=== PATIENT | female | born 1930 | race Caucasian/White ===

== ENCOUNTER → 2016-06-02 | Outpatient (CLI) | payer MEDICARE, OTHER ==
[~2016-06-02] MED LIST: ADVA100A INH; ALPR0.25 PO; AMLO2.5T PO; ASPI81TA11 PO; ATEN-102 PO; ATEN25TA PO; BENI5TAB4 PO; FOLI1TAB; FOLI5CAP PO; KCL10C PO; LOTE20TA3 PO; METH2.5 PO; METH2.5T PO; PANT20TA2 PO; PROT40TA PO
[2016-06-02 12:41] LABS: AUTOMATED NEUTROPHIL # 5.3 TH/MM3 (1.8-7.7); BASOPHIL # 0.3 TH/MM3 (0-0.2); BASOPHIL % 3.4 % (0.0-2.0); EOSINOPHIL # 0.3 TH/MM3 (0-0.4); EOSINOPHIL % 3.3 % (0.0-4.0); HEMATOCRIT 42.6 % (35.0-46.0); HEMO FLAGS DIFF FINAL; LYMPH % 13.9 % (9.0-44.0); LYMPHOCYTE # 1.1 TH/MM3 (1.0-4.8); MEAN CELL VOLUME 89.8 FL (80.0-100.0); MEAN CORPUSCULAR HEMOGLOBIN 29.6 PG (27.0-34.0); MONO % 10.9 % (0.0-8.0); NEUT % 68.5 % (16.0-70.0); PLATELET COUNT 321 TH/MM3 (150-450); RED BLOOD COUNT 4.75 MIL/MM3 (4.00-5.30); RED CELL DISTRIBUTION WIDTH 14.4 % (11.6-17.2); WHITE BLOOD COUNT 7.7 TH/MM3 (4.0-11.0)
[2016-06-02 13:15] LABS: ALKALINE PHOSPHATASE 133 U/L (45-117); ALT (GPT) 19 U/L (10-53); ANION GAP 5 MEQ/L (5-15); AST (GOT) 19 U/L (15-37); BLOOD UREA NITROGEN 17 MG/DL (7-18); CHLORIDE 100 MEQ/L (98-107); GLOMERULAR FILTRATION RATE 72 ML/MIN (>89); GLUCOSE,FASTING 97 MG/DL (74-99); HDL CHOLESTEROL 69.3 MG/DL (40.0-60.0); LDL CHOLESTEROL 102 MG/DL (0-99); POTASSIUM 3.8 MEQ/L (3.5-5.1); SODIUM (NA) 141 MEQ/L (136-145); TOTAL BILIRUBIN ADULT 0.5 MG/DL (0.2-1.0)
[2016-06-02 16:36] LABS: HEMOGLOBIN A1a 1.1 %; HEMOGLOBIN A1b 1.8 %
== END ==
LOC: PLAB 10:07
PROVIDERS: ATTEND Family Medicine
DX: E78.5 Hyperlipidemia, unspecified (principal); I10 Essential (primary) hypertension; R73.01 Impaired fasting glucose
CPT/HCPCS: 36415; 80053; 80061; 83036; 84443; 85025

== ENCOUNTER 2016-07-19 15:21 | Emergency (ER) | payer MEDICARE, OTHER ==
[~2016-07-19] VITALS: Ht 149.9 cm; Wt 52.2 kg
[~2016-07-19 15:21] MED LIST changes: -AMLO2.5T PO; -ATEN25TA PO; -BENI5TAB4 PO; -FOLI5CAP PO; -METH2.5T PO; -PANT20TA2 PO
[2016-07-19 15:40] VITALS: BP 149/78; PULSE 72; RESP 16; TEMP 97.6; O2SAT 94
[2016-07-19] MEDS ORDERED: FOLI5CAP PO (15:42)
[2016-07-19] MEDS ORDERED: PANT20TA2 PO (15:42)
[2016-07-19] MEDS ORDERED: METH2.5T PO (15:42)
[2016-07-19] MEDS ORDERED: ATEN25TA PO (15:42)
[2016-07-19] MEDS ORDERED: BENI5TAB4 PO (15:42)
[2016-07-19] MEDS ORDERED: AMLO2.5T PO (15:42)
[2016-07-19 16:00] VITALS: O2SAT 94
[2016-07-19 16:13] LABS: AUTOMATED NEUTROPHIL # 6.3 TH/MM3 (1.8-7.7); BASOPHIL % 0.5 % (0.0-2.0); EOSINOPHIL # 0.3 TH/MM3 (0-0.4); EOSINOPHIL % 3.4 % (0.0-4.0); HEMATOCRIT 41.9 % (35.0-46.0); HEMO FLAGS DIFF FINAL; LYMPH % 20.9 % (9.0-44.0); LYMPHOCYTE # 1.9 TH/MM3 (1.0-4.8); MEAN CELL VOLUME 89.8 FL (80.0-100.0); MEAN CORPUSCULAR HEMOGLOBIN 29.5 PG (27.0-34.0); MEAN CORPUSCULAR HGB CONC 32.9 % (32.0-36.0); NEUT % 66.2 % (16.0-70.0); PLATELET COUNT 310 TH/MM3 (150-450); RED BLOOD COUNT 4.67 MIL/MM3 (4.00-5.30); WHITE BLOOD COUNT 9.3 TH/MM3 (4.0-11.0)
[2016-07-19 16:19] LABS: CHLORIDE 102 MEQ/L (98-107); POTASSIUM 3.7 MEQ/L (3.5-5.1); SODIUM (NA) 141 MEQ/L (136-145)
--- NOTE | 2016-07-19 16:21 | RADHPO ---
EXAM DATE/TIME: 07/19/2016 16:00 [facility] COMPARISON: CHEST SINGLE AP, October 31, 2015, 15:01. INDICATIONS : Chest pain that radiates down left arm and into neck. MEDICAL HISTORY : Chronic obstructive pulmonary disease. SURGICAL HISTORY : None. ENCOUNTER: Initial ACUITY: 1 day PAIN SCORE: 4/10 LOCATION: Left chest FINDINGS: A single view of the chest demonstrates cardiomegaly with moderate right pleural effusion and right b asilar density. Post surgical changes right lung. The cardiomediastinal contours are unremarkable. O sseous structures are intact. CONCLUSION: 1. Moderate right pleural effusion and probable right basilar atelectasis. 2. Cardiomegaly. Tevin Matamoros MD on July 19, 2016 at 16:16 Board Certified Radiologist. This report was verified electronically.
[2016-07-19 16:22] LABS: ANION GAP 8 MEQ/L (5-15); BICARBONATE 31.5 MEQ/L (21.0-32.0); MAGNESIUM 2.2 MG/DL (1.5-2.5)
[2016-07-19 16:23] LABS: BLOOD UREA NITROGEN 22 MG/DL (7-18)
[2016-07-19 16:25] LABS: INTERNATIONAL NORMALIZED RATIO 0.9 RATIO; PROTHROMBIN TIME - PATIENT 10.4 SEC (9.8-11.6)
[2016-07-19 16:26] LABS: GLOMERULAR FILTRATION RATE 83 ML/MIN (>89)
--- NOTE | 2016-07-19 16:29 | PD ---
HPI . Chest pain Chief Complaint: Chest Pain Time Seen by Provider: 16:21 Travel History International Travel<30 days: No Contact w/Intl Traveler<30days: No Traveled to known affect area: No History of Present Illness HPI This is an 85-year-old woman with a history of hypertension presents with intermittent chest pain. This is actually been going on for quite some time. She describes a burning sensation in her chest. The pain has now subsided. It lasted for a couple of hours. She does have occasional left arm pain and anterior neck pain. She has been seen by her scholastic aptitude test grader as an outpatient and had a stress test which was reviewed unchanged from previous. This was done less than a month ago. She has no shortness of breath. She has no nausea. She has no diaphoresis. 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 INFECTION -CHRONIC) Social History Alcohol Use: Yes (2 GLASSES DAILY) Tobacco Use: No (QUIT 30 YRS AGO SMOKED 1 PPD) Substance Use: No Allergies-Medications (Allergen,Severity, Reaction): Coded Allergies: Aspirin (Verified Allergy, Unknown, 10/31/15) Reported Meds & Prescriptions Reported Meds & Active Scripts Active Reported Pantoprazole (Pantoprazole Sodium) 20 Mg Tab 20 Mg PO DAILY Folic Acid 5 Mg Cap 5 Mg PO DIRECTED Methotrexate 2.5 Mg Tab 2.5 Mg PO Q7D Atenolol 25 Mg Tab 12.5 Mg PO DAILY Benicar (Olmesartan) 5 Mg Tab 5 Mg PO DAILY Amlodipine (Amlodipine Besylate) 2.5 Mg Tab 2.5 Mg PO DAILY Review of Systems Except as stated in HPI: all other systems reviewed are Neg General / Constitutional: No: Fever, Chills Cardiovascular: Positive: Chest Pain or Discomfort Respiratory: No: Shortness of Breath Gastrointestinal: No: Nausea Musculoskeletal: Positive: Myalgias (anterior neck and left arm) Physical Exam Narrative GENERAL: This is a healthy-appearing 85-year-old woman in no acute distress. SKIN: Warm and dry. HEAD: Atraumatic. Normocephalic. EYES: Pupils equal and round. ENT: No nasal bleeding or discharge. Mucous membranes pink and moist. NECK: Trachea midline. Neck supple. CARDIOVASCULAR: Regular rate and rhythm. Heart sounds normal. RESPIRATORY: No accessory muscle use. Lungs clear with full air movement throughout. Chest wall nontender. GASTROINTESTINAL: Abdomen soft, non-tender, nondistended. MUSCULOSKELETAL: No obvious deformities. No edema. NEUROLOGICAL: Awake and alert. No obvious cranial nerve deficits. Motor grossly within normal limits. Normal speech. PSYCHIATRIC: Appropriate mood and affect; insight and judgment normal. Data Data Last Documented VS Vital Signs Date Time Temp Pulse Resp B/P Pulse Ox O2 Delivery O2 Flow Rate FiO2 07/19/16 16:00 94 Room Air 07/19/16 15:40 97.6 72 16 149/78 Orders Electrocardiogram (07/19/16 15:54) Basic Metabolic Panel (Bmp) (07/19/16 15:54) Ckmb (Isoenzyme) Profile (07/19/16 15:54) Complete Blood Count With Diff (07/19/16 15:54) Magnesium (Mg) (07/19/16 15:54) Prothrombin Time / Inr (Pt) (07/19/16 15:54) Act Partial Throm Time (Ptt) (07/19/16 15:54) Troponin I (07/19/16 15:54) Chest, Single Ap (07/19/16 15:54) Ecg Monitoring (07/19/16 15:54) Bilateral Bp Monitoring (07/19/16 15:54) Iv Access Insert/Monitor (07/19/16 15:54) Oximetry (07/19/16 15:54) Oxygen Administration (07/19/16 15:54) Aspirin Ec (Ecotrin Ec) (07/19/16 16:45) Labs Laboratory Tests Test 07/19/16 15:30 White Blood Count 9.3 TH/MM3 Red Blood Count 4.67 MIL/MM3 Hemoglobin 13.8 GM/DL Hematocrit 41.9 % Mean Corpuscular Volume 89.8 FL Mean Corpuscular Hemoglobin 29.5 PG Mean Corpuscular Hemoglobin 32.9 % Concent Red Cell Distribution Width 14.0 % Platelet Count 310 TH/MM3 Mean Platelet Volume 8.5 FL Neutrophils (%) (Auto) 66.2 % Lymphocytes (%) (Auto) 20.9 % Monocytes (%) (Auto) 9.0 % Eosinophils (%) (Auto) 3.4 % Basophils (%) (Auto) 0.5 % Neutrophils # (Auto) 6.3 TH/MM3 Lymphocytes # (Auto) 1.9 TH/MM3 Monocytes # (Auto) 0.8 TH/MM3 Eosinophils # (Auto) 0.3 TH/MM3 Basophils # (Auto) 0.0 TH/MM3 CBC Comment DIFF FINAL Differential Comment Prothrombin Time 10.4 SEC Prothromb Time International 0.9 RATIO Ratio Activated Partial 27.0 SEC Thromboplast Time Sodium Level 141 MEQ/L Potassium Level 3.7 MEQ/L Chloride Level 102 MEQ/L Carbon Dioxide Level 31.5 MEQ/L Anion Gap 8 MEQ/L Blood Urea Nitrogen 22 MG/DL Creatinine 0.67 MG/DL Estimat Glomerular Filtration 83 ML/MIN Rate Random Glucose 97 MG/DL Calcium Level 8.9 MG/DL Magnesium Level 2.2 MG/DL Total Creatine Kinase 53 U/L Troponin I LESS THAN 0.02 NG/ML MDM Medical Decision Making Medical Screen Exam Complete: Yes Emergency Medical Condition: Yes Medical Record Reviewed: Yes (patient was seen here in October with very similar complaints. She had a negative workup at that time.) Interpretation(s) EKG shows a sinus rhythm with no ST segment elevation or depression. The EKG is unchanged from previous. She does have Q waves in the inferior leads. Differential Diagnosis Differential diagnosis of chest pain includes but is not limited to musculoskeletal pain, pulmonary embolism, acute coronary syndrome, pneumonia, pleurisy Narrative Course Patient presents for the evaluation of chest pain. Chest pain has resolved. CBC & BMP Diagram 07/19/16 15:30 CK and troponin are negative. Last Impressions Chest X-Ray 07/19/16 3709 Signed Impressions: Service Date/Time: Tuesday, July 19, 2016 16:00 - CONCLUSION: 1. Moderate right pleural effusion and probable right basilar atelectasis. 2. Cardiomegaly. Tevin Matamoros MD Disposition was discussed with the patient. A 23 hour observation was offered. She declines. I think that this is probably reasonable especially since she had a negative nuclear stress test less than a month ago. Diagnosis Primary Impression: Chest pain Qualified Code: R07.9 - Chest pain, unspecified type Patient Instructions: Chest Pain (DC), General Instructions Disposition: 01 DISCHARGE HOME Condition: Stable Carolann Guo MD Jul 19, 2016 16:29
[2016-07-19 16:35] LABS: CREATINE KINASE 53 U/L (26-192)
[2016-07-19] MEDS ORDERED: ASPIRIN EC 81 MG TABEC PO ONE (16:45)
[2016-07-19 17:11] VITALS: BP_SYST 130; BP_SYST 136; BP_DIAS 79; BP_DIAS 82; PULSE 64; RESP 18; O2SAT 97
== END 2016-07-19 17:14 | disposition home or self-care (01) ==
LOC: PHED 15:21
DX: R07.9 Chest pain, unspecified (principal); J44.9 Chronic obstructive pulmonary disease, unspecified; I10 Essential (primary) hypertension
CPT/HCPCS: 71010; 80048; 82550; 83735; 84484; 85025; 85610; 85730

== ENCOUNTER 2017-03-25 09:51 | Emergency (ER) | payer MEDICARE, OTHER ==
[~2017-03-25] VITALS: Ht 149.9 cm; Wt 48.1 kg
[~2017-03-25 09:51] MED LIST changes: -ADVA100A INH; -ALPR0.25 PO; +AMLO2.5T PO; -ASPI81TA11 PO; -ATEN-102 PO; +ATEN25TA PO; +BENI5TAB4 PO; -FOLI1TAB; +FOLI5CAP PO; -KCL10C PO; -LOTE20TA3 PO; -METH2.5 PO; +METH2.5T PO; +PANT20TA2 PO; -PROT40TA PO
[2017-03-25 09:56] VITALS: BP 102/72; PULSE 98; RESP 16; TEMP 97.2; O2SAT 95
[2017-03-25] MEDS ORDERED: ALPR.25 PO (10:12)
--- NOTE | 2017-03-25 10:56 | PD ---
HPI Chief Complaint: Complaint Time Seen by Provider: 10:14 Travel History International Travel<30 days: No Contact w/Intl Traveler<30days: No Traveled to known affect area: No History of Present Illness HPI 86 y/o female presents bleeding and her catheter this morning when she took a shower at 9 AM. She denies any trauma to the area that she knows about. She states she does not think that she pulled on it. She states that it was fine before she went in the shower. She states Dr. mcclendon is her urologist and she saw him last on when they placed the catheter because she was having difficulty urinating. She states she recently had had cystoscopy and Botox she's been having this ongoing issue. She states that she's not having any other complaints this morning other than the bleeding. Quality is bright red. Severity is progressive. 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 INFECTION -CHRONIC) Social History Alcohol Use: Yes (2 GLASSES DAILY) Tobacco Use: No (QUIT 30 YRS AGO SMOKED 1 PPD) Substance Use: No Allergies-Medications (Allergen,Severity, Reaction): Coded Allergies: aspirin (Unverified Adverse Reaction, Unknown, GI UPSET, 03/25/17) pt states does not have a allergy to this medication Reported Meds & Prescriptions Reported Meds & Active Scripts Active Macrobid (Nitrofurantoin Monohydrate Macrocrystals) 100 Mg Capsule 100 Mg PO BID 5 Days Reported Xanax (Alprazolam) 0.25 Mg Tab 0.25 Mg PO Q4H PRN Pantoprazole (Pantoprazole Sodium) 20 Mg Tab 20 Mg PO DAILY Methotrexate 2.5 Mg Tab 2.5 Mg PO Q7D Atenolol 25 Mg Tab 12.5 Mg PO DAILY Benicar (Olmesartan) 5 Mg Tab 5 Mg PO DAILY Amlodipine (Amlodipine Besylate) 2.5 Mg Tab 2.5 Mg PO DAILY Review of Systems Except as stated in HPI: all other systems reviewed are Neg Physical Exam Narrative GENERAL: Well-nourished, well-developed patient. SKIN: Warm and dry. HEAD: Normocephalic and atraumatic. EYES: No injection or drainage. ENT: No nasal drainage noted. NECK: Supple, trachea midline. CARDIOVASCULAR: Regular rate and rhythm RESPIRATORY: No increased effort. No accessory muscle use. GASTROINTESTINAL: Abdomen soft, non-tender, nondistended. BACK: Nontender without obvious deformity. NEUROLOGICAL: Awake and alert. Moves all extremities and sensory grossly within normal limits. Normal speech. Data Data Last Documented VS Vital Signs Date Time Temp Pulse Resp B/P (MAP) Pulse Ox O2 Delivery O2 Flow Rate FiO2 03/25/17 09:56 97.2 98 16 102/72 (82) 95 Orders Orders Complete Blood Count With Diff (03/25/17 10:21) Basic Metabolic Panel (Bmp) (03/25/17 10:21) Urinalysis - C+S If Indicated (03/25/17 10:21) Act Partial Throm Time (Ptt) (03/25/17 10:21) Prothrombin Time / Inr (Pt) (03/25/17 10:21) Iv Access Insert/Monitor (03/25/17 10:21) Urinary Catheter - Remove (03/25/17 10:27) Urinary Catheter Insert/Apply (03/25/17 10:27) Urine Culture (03/25/17 11:02) Ed Discharge Order (03/25/17 11:44) Acetaminophen (Tylenol) (03/25/17 12:00) Labs Laboratory Tests Test 03/25/17 11:02 White Blood Count 9.1 TH/MM3 Red Blood Count 4.54 MIL/MM3 Hemoglobin 13.5 GM/DL Hematocrit 41.0 % Mean Corpuscular Volume 90.4 FL Mean Corpuscular Hemoglobin 29.8 PG Mean Corpuscular Hemoglobin Concent 33.0 % Red Cell Distribution Width 14.4 % Platelet Count 309 TH/MM3 Mean Platelet Volume 8.6 FL Neutrophils (%) (Auto) 77.7 % Lymphocytes (%) (Auto) 9.9 % Monocytes (%) (Auto) 8.6 % Eosinophils (%) (Auto) 1.9 % Basophils (%) (Auto) 1.9 % Neutrophils # (Auto) 7.0 TH/MM3 Lymphocytes # (Auto) 0.9 TH/MM3 Monocytes # (Auto) 0.8 TH/MM3 Eosinophils # (Auto) 0.2 TH/MM3 Basophils # (Auto) 0.2 TH/MM3 CBC Comment DIFF FINAL Differential Comment Prothrombin Time 10.9 SEC Prothromb Time International Ratio 1.0 RATIO Activated Partial Thromboplast Time 26.3 SEC Urine Collection Type CATH Urine Color YELLOW Urine Turbidity CLEAR Urine pH 8.0 Urine Specific [place] 1.003 Urine Protein NEG mg/dL Urine Glucose (UA) NEG mg/dL Urine Ketones NEG mg/dL Urine Occult Blood LARGE Urine Nitrite NEG Urine Bilirubin NEG Urine Leukocyte Esterase MOD Urine RBC 15-19 /hpf Urine WBC 25-49 /hpf Urine WBC Clumps MOD Urine Renal Epithelial Cells 0-5 /hpf Microscopic Urinalysis Comment CATH-CULTURE IND Urine Collection Time 11:02 Blood Urea Nitrogen 12 MG/DL Creatinine 0.62 MG/DL Random Glucose 103 MG/DL Calcium Level 8.5 MG/DL Sodium Level 139 MEQ/L Potassium Level 3.7 MEQ/L Chloride Level 102 MEQ/L Carbon Dioxide Level 31.0 MEQ/L Anion Gap 6 MEQ/L Estimat Glomerular Filtration Rate 91 ML/MIN MDM Medical Decision Making Medical Screen Exam Complete: Yes Emergency Medical Condition: Yes Medical Record Reviewed: Yes (past history confirmed) Interpretation(s) CBC & BMP Diagram 03/25/17 11:02 Calcium Level 8.5 Differential Diagnosis UTI, urethral tear, anemia, cystitis Narrative Course Will check blood work, urinalysis and discuss with her urologist Lab work within normal limits, urinalysis given signs of infection we'll treat, patient likely has urethral Tear as nursing staff states that her Jain catheter was barely in, this was exchanged and now urine is clear. Patient denies any new complaints, all questions answered. Patient knows that follow up is incumbent on them and to return to the emergency room immediately if new or worsening symptoms develop. Patient given strict return precautions, vitals reviewed and are normal, agrees to further workup as an outpatient. Given Tylenol for pain Physician Communication Physician Communication dr enamorado agrees to workup and states to exchange Jain 22 Serbian 3-way and can follow in office on Monday with Dr. mcclendon Diagnosis Primary Impression: Hematuria Qualified Codes: R31.9 - Hematuria, unspecified Patient Instructions: General Instructions Additional Instructions: return as needed, tylenol as needed, follow with dr mcclendon monday Med/Other Pt SpecificInfo: Prescription(s) given Scripts Nitrofurantoin Monohydrate Macrocrystals (Macrobid) 100 Mg Capsule 100 MG PO BID for Infection for 5 Days, #10 CAP 0 Refills Prov: Sol Solis MD 03/25/17 Disposition: 01 DISCHARGE HOME Condition: Stable Sol Solis MD Mar 25, 2017 10:56
[2017-03-25 11:09] LABS: BLOOD, URINE LARGE (NEG); GLUCOSE,URINE NEG (NEG); KETONE, URINE NEG (NEG); NITRITE,URINE NEG (NEG)
[2017-03-25 11:14] LABS: BASOPHIL # 0.2 TH/MM3 (0-0.2); BASOPHIL % 1.9 % (0.0-2.0); EOSINOPHIL # 0.2 TH/MM3 (0-0.4); EOSINOPHIL % 1.9 % (0.0-4.0); LYMPH % 9.9 % (9.0-44.0); LYMPHOCYTE # 0.9 TH/MM3 (1.0-4.8); MEAN CELL VOLUME 90.4 FL (80.0-100.0); MEAN CORPUSCULAR HEMOGLOBIN 29.8 PG (27.0-34.0); MONO % 8.6 % (0.0-8.0); NEUT % 77.7 % (16.0-70.0); PLATELET COUNT 309 TH/MM3 (150-450); RED BLOOD COUNT 4.54 MIL/MM3 (4.00-5.30); RED CELL DISTRIBUTION WIDTH 14.4 % (11.6-17.2); WHITE BLOOD COUNT 9.1 TH/MM3 (4.0-11.0)
[2017-03-25 11:16] LABS: HEMO FLAGS DIFF FINAL
[2017-03-25 11:19] LABS: METHOD OF COLLECTION CATH; URINE COLOR YELLOW (YELLW/STRAW)
[2017-03-25 11:20] LABS: COMMENT (UR) CATH-CULTURE IND; CULTURE IF INDICATED CATH CULTURE IND; RBC, URINE 15-19 /hpf (0-3); RENAL EPITHELIAL CELLS 0-5 /hpf
[2017-03-25 11:21] LABS: POTASSIUM 3.7 MEQ/L (3.5-5.1)
[2017-03-25 11:30] LABS: APTT (PATIENT) 26.3 SEC (24.3-30.1); PROTHROMBIN TIME - PATIENT 10.9 SEC (9.8-11.6)
[2017-03-25] MEDS ORDERED: MACR100C2 PO (11:40)
[2017-03-25] MEDS ORDERED: ACETAMINOPHEN 325 MG TAB PO ONE (12:00)
== END 2017-03-25 13:12 | disposition home or self-care (01) ==
LOC: PHED 09:51
DX: R31.9 Hematuria, unspecified (principal); B96.1 Klebsiella pneumoniae [K. pneumoniae] as the cause of diseases classified elsewhere; I10 Essential (primary) hypertension; Z79.82 Long term (current) use of aspirin; Z86.79 Personal history of other diseases of the circulatory system; Z87.09 Personal history of other diseases of the respiratory system; Z87.448 Personal history of other diseases of urinary system
CPT/HCPCS: 51703; 80048; 81001; 85025; 85610; 85730; 87077; 87086; 87186

== ENCOUNTER 2017-04-04 02:51 | Emergency (ER) | payer MEDICARE, OTHER ==
[~2017-04-04] VITALS: Ht 149.9 cm; Wt 47.6 kg
[~2017-04-04 02:51] MED LIST changes: +ALPR.25 PO; -FOLI5CAP PO; +MACR100C2 PO
[2017-04-04 02:56] VITALS: BP 159/82; PULSE 86; RESP 12; TEMP 98.1; O2SAT 93
[2017-04-04] MEDS ORDERED: PANT40TA3 PO (03:37)
[2017-04-04] MEDS ORDERED: OLME1TAB13 PO (03:37)
[2017-04-04] MEDS ORDERED: AMLO5TAB2 PO (03:37)
[2017-04-04] MEDS ORDERED: FOLI800T PO ×2 (03:37)
[2017-04-04] MEDS ORDERED: METH2.5T PO (03:37)
[2017-04-04] MEDS ORDERED: ALPR.5 PO (03:37)
[2017-04-04] MEDS ORDERED: METO25TA3 PO (03:37)
[2017-04-04] MEDS ORDERED: PHEN0.4T PO (03:39)
[2017-04-04] MEDS ORDERED: RAPA8CAP PO (03:39)
[2017-04-04] MEDS ORDERED: VENTAER INH (03:39)
[2017-04-04 03:45] LABS: AUTOMATED NEUTROPHIL # 10.1 TH/MM3 (1.8-7.7); BASOPHIL # 0.1 TH/MM3 (0-0.2); BASOPHIL % 0.4 % (0.0-2.0); EOSINOPHIL # 0.2 TH/MM3 (0-0.4); EOSINOPHIL % 1.7 % (0.0-4.0); HEMO FLAGS DIFF FINAL; LYMPH % 11.7 % (9.0-44.0); LYMPHOCYTE # 1.5 TH/MM3 (1.0-4.8); MEAN CORPUSCULAR HEMOGLOBIN 29.5 PG (27.0-34.0); MEAN CORPUSCULAR HGB CONC 32.5 % (32.0-36.0); MONO % 9.8 % (0.0-8.0); NEUT % 76.4 % (16.0-70.0); PLATELET COUNT 381 TH/MM3 (150-450); RED BLOOD COUNT 4.51 MIL/MM3 (4.00-5.30); RED CELL DISTRIBUTION WIDTH 14.4 % (11.6-17.2); WHITE BLOOD COUNT 13.2 TH/MM3 (4.0-11.0)
[2017-04-04 04:03] LABS: POTASSIUM 3.3 MEQ/L (3.5-5.1)
[2017-04-04 04:05] LABS: BLOOD, URINE MOD (NEG); GLUCOSE,URINE 100 mg/dL (NEG); KETONE, URINE NEG (NEG); NITRITE,URINE POS (NEG); PH, URINE 6.5 (5.0-8.5)
[2017-04-04 04:06] LABS: BICARBONATE 31.4 MEQ/L (21.0-32.0)
[2017-04-04 04:13] LABS: METHOD OF COLLECTION CATH; URINE COLOR AMBER (YELLW/STRAW)
[2017-04-04 04:14] LABS: SQUAMOUS EPITHELIAL CELL URINE 0-5 /hpf (0-5); WBC, URINE INNUM /hpf (0-5)
[2017-04-04 04:15] LABS: BACTERIA, URINE FEW /hpf
[2017-04-04 04:16] LABS: COMMENT (UR) CATH-CULTURE IND; CULTURE IF INDICATED CATH CULTURE IND
[2017-04-04] MEDS ORDERED: POTASSIUM CHLORIDE 20 MEQ CONTROLLED RELEASE TAB PO ONE (04:30)
[2017-04-04] MEDS ORDERED: CIPROFLOXACIN 500 MG TAB PO ONE (04:30)
[2017-04-04] MEDS ORDERED: CIPR250T52 PO (04:36)
[2017-04-04 04:45] VITALS: BP 163/72; PULSE 78; RESP 14; O2SAT 95
--- NOTE | 2017-04-04 04:52 | PD ---
HPI Chief Complaint: Complaint Time Seen by Provider: 03:03 Travel History International Travel<30 days: No Contact w/Intl Traveler<30days: No Traveled to known affect area: No History of Present Illness HPI 86-year-old female presents to the emergency department for urinary retention and painful bladder spasms. No hematuria. No clots. No injury. No fever chills. Patient has had similar symptoms for the past one month and has been followed closely by her urologist. Patient does not seem to be improving. Patient is requesting opportunity to have a urinary catheter placed for symptom relief. Pain is 8/10 intensity. No fever or chills. No generalized abdominal pain flank pain vomiting or diarrhea. Patient also denies any chest pain or shortness of breath. Patient denies recent fever or chills. PFSH Past Medical History Narrative Medical Anxiety COPD UTI kwadwo's granulomatosis; no tobacco use/nursing notes reviewed Hx Anticoagulant Therapy: Yes (asa 81mg) Anxiety: Yes Cardiovascular Problems: Yes COPD: Yes Diminished Hearing: No Genitourinary: Yes (interstitial cystitis) Hypertension: Yes Respiratory: Yes (kwadwo's granulomatosis 1989' RIGHT LUNG) Tetanus Vaccination: Unknown Influenza Vaccination: Yes Menopausal: Yes : 3 Para: 3 Past Surgical History Section: Yes (3C-SECTIONS) Cholecystectomy: Yes Gynecologic Surgery: Yes Hysterectomy: Yes Thoracic Surgery: Yes (RIGHT LOWER LOBECTOMY R/T ? INFECTION -CHRONIC) Social History Alcohol Use: No Tobacco Use: No (QUIT 1965 SMOKED 1 PPD) Substance Use: No Allergies-Medications (Allergen,Severity, Reaction): Coded Allergies: aspirin (Unverified Adverse Reaction, Unknown, GI UPSET, 04/04/17) pt states does not have a allergy to this medication Reported Meds & Prescriptions Reported Meds & Active Scripts Active Reported Ventolin Hfa 18 GM Inh (Albuterol Sulfate) 90 Mcg/Act Aer 2 Puff INH Q4-6H PRN Pyridium (Phenazopyridine HCl) 100 Mg Tab 100 Mg PO DAILY Rapaflo (Silodosin) 8 Mg Cap 8 Mg PO DAILY Folic Acid 0.8 Mg Tab 1 Mg PO M,T,W,F,SA,BRAGG Pantoprazole (Pantoprazole Sodium) 40 Mg Tab 40 Mg PO DAILY Olmesartan 40 Mg Tab 40 Mg PO DAILY Methotrexate 2.5 Mg Tab 7.5 Mg PO Q7D Metoprolol Tartrate 25 Mg Tab 12.5 Mg PO BID Amlodipine (Amlodipine Besylate) 5 Mg Tab 5 Mg PO DAILY Xanax (Alprazolam) 0.5 Mg Tab 0.5 Mg PO BID PRN Review of Systems Except as stated in HPI: all other systems reviewed are Neg Physical Exam Narrative GENERAL: SKIN: Warm and dry. HEAD: Normocephalic. EYES: No scleral icterus. No injection or drainage. NECK: Supple, trachea midline. No JVD or lymphadenopathy. CARDIOVASCULAR: Regular rate and rhythm without murmurs, gallops, or rubs. RESPIRATORY: Breath sounds equal bilaterally. No accessory muscle use. GASTROINTESTINAL: Abdomen soft, non-tender, nondistended. MUSCULOSKELETAL: No cyanosis, or edema. BACK: Nontender without obvious deformity. No CVA tenderness. Data Data Last Documented VS Vital Signs Date Time Temp Pulse Resp B/P (MAP) Pulse Ox O2 Delivery O2 Flow Rate FiO2 04/04/17 03:00 84 14 04/04/17 02:56 98.1 159/82 (107) 93 Orders Orders Complete Blood Count With Diff (04/04/17 03:04) Basic Metabolic Panel (Bmp) (04/04/17 03:04) Urinalysis - C+S If Indicated (04/04/17 03:04) Urinary Catheter Insert/Apply (04/04/17 03:04) Urine Culture (04/04/17 03:20) Potassium Chloride (Kcl) (04/04/17 04:30) Ciprofloxacin (Cipro) (04/04/17 04:30) Ed Discharge Order (04/04/17 04:33) Bag, Leg 32oz Sterile Large Ea (04/04/17 04:33) Cath, Leg Strap Ea (04/04/17 04:33) Labs Laboratory Tests Test 04/04/17 03:20 White Blood Count 13.2 TH/MM3 Red Blood Count 4.51 MIL/MM3 Hemoglobin 13.3 GM/DL Hematocrit 41.0 % Mean Corpuscular Volume 91.0 FL Mean Corpuscular Hemoglobin 29.5 PG Mean Corpuscular Hemoglobin Concent 32.5 % Red Cell Distribution Width 14.4 % Platelet Count 381 TH/MM3 Mean Platelet Volume 8.0 FL Neutrophils (%) (Auto) 76.4 % Lymphocytes (%) (Auto) 11.7 % Monocytes (%) (Auto) 9.8 % Eosinophils (%) (Auto) 1.7 % Basophils (%) (Auto) 0.4 % Neutrophils # (Auto) 10.1 TH/MM3 Lymphocytes # (Auto) 1.5 TH/MM3 Monocytes # (Auto) 1.3 TH/MM3 Eosinophils # (Auto) 0.2 TH/MM3 Basophils # (Auto) 0.1 TH/MM3 CBC Comment DIFF FINAL Differential Comment Urine Collection Type CATH Urine Color STEPHANIE Urine Turbidity MOD Urine pH 6.5 Urine Specific [place] 1.007 Urine Protein 30 mg/dL Urine Glucose (UA) 100 mg/dL Urine Ketones NEG mg/dL Urine Occult Blood MOD Urine Nitrite POS Urine Bilirubin NEG Urine Leukocyte Esterase LARGE Urine RBC 10-14 /hpf Urine WBC INNUM /hpf Urine WBC Clumps MANY Urine Squamous Epithelial Cells 0-5 /hpf Urine Amorphous Sediment SMALL Urine Bacteria FEW /hpf Microscopic Urinalysis Comment CATH-CULTURE IND Blood Urea Nitrogen 7 MG/DL Creatinine 0.57 MG/DL Random Glucose 101 MG/DL Calcium Level 8.7 MG/DL Sodium Level 137 MEQ/L Potassium Level 3.3 MEQ/L Chloride Level 100 MEQ/L Carbon Dioxide Level 31.4 MEQ/L Anion Gap 6 MEQ/L Estimat Glomerular Filtration Rate 100 ML/MIN [facility] Medical Decision Making Medical Screen Exam Complete: Yes Emergency Medical Condition: Yes Medical Record Reviewed: Yes Interpretation(s) CBC & BMP Diagram 04/04/17 03:20 Calcium Level 8.7 Urinalysis positive leukocyte Estrace positive nitrites positive WBCs positive clumped wbc's, positive RBCs and culture is indicated Differential Diagnosis Urinary retention renal insufficiency UTI Narrative Course urinary catheter was placed with greater than 300 cc of retained urine output: Catheterized urine specimen sent for analysis culture and sensitivity Patient resting comfortably voicing no concerns or complaints Patient identified to have abnormal urinalysis and given first dose of oral antibiotic Cipro 500 mg by mouth and will be given prescription for Cipro 250 mg by mouth twice daily for 5 days as patient has just completed a five-day course of Keflex. Review of medical record indicates that Klebsiella organism is sensitive to Cipro and to Keflex. As patient's symptoms persist on Keflex will change to Cipro Patient is encouraged to follow-up with her primary urologist a call office in a.m. for scheduling follow-up appointment regarding the repeat urinary catheterization insertion. Patient with family at bedside informed of lab results and aware of need for close follow-up with urologist. Diagnosis Primary Impression: Urinary retention Additional Impression: UTI (urinary tract infection) Referrals: Urologist 1 day Although is use your urologist Dr. Pavon or with on-call urologist Dr. Sky Patient Instructions: General Instructions Additional Instructions: Follow-up with your urologist or may follow-up with on-call urologist call office in a.m. to schedule follow-up appointment Complete course of antibiotic as prescribed Take acetaminophen/Tylenol as needed for fever 100.4F or greater or for minor pain Continue chronic medications as chronically prescribed Return to the emergency department for any concerns or change in condition Increase fluid hydration Med/Other Pt SpecificInfo: Prescription(s) given Scripts Ciprofloxacin (Cipro) 250 Mg Tab 250 MG PO BID for Infection for 5 Days, #10 TAB 0 Refills Prov: Yue Michele MD 04/04/17 Disposition: 01 DISCHARGE HOME Condition: Stable Yue Michele MD Apr 04, 2017 04:52
== END 2017-04-04 05:06 | disposition home or self-care (01) ==
LOC: PHED 02:51
DX: N39.0 Urinary tract infection, site not specified (principal); B96.5 Pseudomonas (aeruginosa) (mallei) (pseudomallei) as the cause of diseases classified elsewhere; I10 Essential (primary) hypertension; Z87.891 Personal history of nicotine dependence
CPT/HCPCS: 51702; 80048; 81001; 85025; 87077; 87086; 87186

== ENCOUNTER 2017-04-23 04:28 | Emergency (ER) | payer MEDICARE, OTHER ==
[~2017-04-23] VITALS: Ht 147.3 cm; Wt 50.0 kg
[2017-04-23 04:28] VITALS: BP 152/76; PULSE 75; RESP 18; TEMP 97.8; O2SAT 95
[~2017-04-23 04:28] MED LIST changes: -ALPR.25 PO; +ALPR.5 PO; -AMLO2.5T PO; +AMLO5TAB2 PO; -ATEN25TA PO; -BENI5TAB4 PO; +CIPR250T52 PO; +FOLI800T PO; -MACR100C2 PO; +METO25TA3 PO; +OLME1TAB13 PO; -PANT20TA2 PO; +PANT40TA3 PO; +PHEN0.4T PO; +RAPA8CAP PO; +VENTAER INH
--- NOTE | 2017-04-23 04:47 | PD ---
HPI Chief Complaint: Complaint Time Seen by Provider: 04:37 Travel History International Travel<30 days: No Contact w/Intl Traveler<30days: No Traveled to known affect area: No History of Present Illness HPI The patient is an 86-year-old female that apparently has bladder at knee for several months. She is followed by her urologist, Dr. Pavon, for this. She states she woke up tonight and felt like she could not urinate and her bladder was distended. She does not have any bladder spasms. She denies any dysuria or urgency. She denies any flank pain, fever or chills. She denies any nausea , vomiting or diarrhea. The patient has been in before and a urinary catheter has taken care of the problem. She states her urine was recently checked and found not to be infected. She does have a history of urinary tract infections, specifically cystitis. Her creatinines have been normal in the recent past. She denies any narcotic pain medications. She does take Xanax. Dr. Pavon gives her Pyridium and that is the only medicine he gives her. PFSH Past Medical History Hx Anticoagulant Therapy: Yes (asa 81mg) Anxiety: Yes Cardiovascular Problems: Yes COPD: Yes Diminished Hearing: No Genitourinary: Yes (interstitial cystitis) Hypertension: Yes Respiratory: Yes (kwadwo's granulomatosis RIGHT LUNG) ?: Not Menopausal: Yes : 3 Para: 3 Past Surgical History Section: Yes (3C-SECTIONS) Cholecystectomy: Yes Gynecologic Surgery: Yes Hysterectomy: Yes Thoracic Surgery: Yes (RIGHT LOWER LOBECTOMY R/T ? INFECTION -CHRONIC) Social History Alcohol Use: No Tobacco Use: No (QUIT 1965 SMOKED 1 PPD) Substance Use: No Allergies-Medications (Allergen,Severity, Reaction): Coded Allergies: aspirin (Unverified Adverse Reaction, Unknown, GI UPSET, 04/23/17) pt states does not have a allergy to this medication Reported Meds & Prescriptions Reported Meds & Active Scripts Active Reported Ventolin Hfa 18 GM Inh (Albuterol Sulfate) 90 Mcg/Act Aer 2 Puff INH Q4-6H PRN Pyridium (Phenazopyridine HCl) 100 Mg Tab 100 Mg PO DAILY Rapaflo (Silodosin) 8 Mg Cap 8 Mg PO DAILY Folic Acid 0.8 Mg Tab 1 Mg PO M,T,W,F,SA,BRAGG Pantoprazole (Pantoprazole Sodium) 40 Mg Tab 40 Mg PO DAILY Olmesartan 40 Mg Tab 40 Mg PO DAILY Methotrexate 2.5 Mg Tab 7.5 Mg PO Q7D Metoprolol Tartrate 25 Mg Tab 12.5 Mg PO BID Amlodipine (Amlodipine Besylate) 5 Mg Tab 5 Mg PO DAILY Xanax (Alprazolam) 0.5 Mg Tab 0.5 Mg PO BID PRN Review of Systems Except as stated in HPI: all other systems reviewed are Neg Physical Exam Narrative GENERAL: Well-nourished, well-developed patient in moderate distress with her bladder distention discomfort. Vital signs show blood pressure 152/76 but are otherwise normal. SKIN: Focused skin assessment warm/dry. HEAD: Normocephalic. EYES: No scleral icterus. No injection or drainage. NECK: Supple, trachea midline. No JVD or lymphadenopathy. CARDIOVASCULAR: Regular rate and rhythm without murmurs, gallops, or rubs. RESPIRATORY: Breath sounds equal bilaterally. No accessory muscle use. GASTROINTESTINAL: Abdomen soft, non-tender, nondistended. The bladder does feel distended and minimally discomforting when palpating it. No flank tenderness is present. MUSCULOSKELETAL: No cyanosis, or edema. BACK: Nontender without obvious deformity. No CVA tenderness. Data Data Last Documented VS Vital Signs Date Time Temp Pulse Resp B/P (MAP) Pulse Ox O2 Delivery O2 Flow Rate FiO2 04/23/17 04:28 97.8 75 18 152/76 (101) 95 Orders Orders Urinalysis - C+S If Indicated (04/23/17 04:47) Urinary Catheter Insert/Apply (04/23/17 04:55) Urine Culture (04/23/17 04:45) Labs Laboratory Tests Test 04/23/17 04:45 Urine Color ORANGE Urine Turbidity CLEAR Urine pH 6.5 Urine Specific [place] 1.007 Urine Protein 30 mg/dL Urine Glucose (UA) 250 mg/dL Urine Ketones NEG mg/dL Urine Occult Blood NEG Urine Nitrite POS Urine Bilirubin NEG Urine Leukocyte Esterase NEG Urine RBC 0-2 /hpf Urine WBC 0-2 /hpf Urine Squamous Epithelial Cells 0-5 /hpf Urine Bacteria NONE /hpf Microscopic Urinalysis Comment CATH-CULTURE IND MDM Medical Decision Making Medical Screen Exam Complete: Yes Emergency Medical Condition: Yes Medical Record Reviewed: Yes Interpretation(s) After catheterization, the urine recovered from the Jain was 500 cc. The urine shows orange in color, specific gravity 1.007, 30 protein, 250 glucose with positive nitrite and is otherwise normal and culture is indicated. Differential Diagnosis Bladder atony, urinary tract infection, urethral obstruction Narrative Course The patient appears to have bladder atony. Other than Xanax, I cannot identify any medication that would cause it. The patient will be given a leg bag and follow-up Monday with Dr. Pavon's office. They will likely remove the catheter and leg bag at that time. She has had a leg bag before. I'm afraid to remove the catheter this time because she may start retaining urine again and be in the same situation that she came in at 4:30 in the morning tonight. At this time I cannot confirm that the patient has a urinary tract infection, she has only a positive nitrite and her urine. Diagnosis Primary Impression: Acute urinary retention Additional Instructions: As we discussed, follow-up with Dr. Pavon's office tomorrow, Monday. He will likely remove the Jain catheter at that time. Med/Other Pt SpecificInfo: No Change to Meds Disposition: 01 DISCHARGE HOME Condition: Stable Kei Mallory MD Apr 23, 2017 04:47
[2017-04-23 04:54] LABS: BLOOD, URINE NEG (NEG); GLUCOSE,URINE 250 mg/dL (NEG); KETONE, URINE NEG (NEG); NITRITE,URINE POS (NEG); PH, URINE 6.5 (5.0-8.5)
[2017-04-23 04:55] LABS: URINE COLOR ORANGE (YELLW/STRAW)
[2017-04-23 04:58] LABS: RBC, URINE 0-2 /hpf (0-3); SQUAMOUS EPITHELIAL CELL URINE 0-5 /hpf (0-5); WBC, URINE 0-2 /hpf (0-5)
[2017-04-23 04:59] LABS: COMMENT (UR) CATH-CULTURE IND; CULTURE IF INDICATED CATH CULTURE IND
[2017-04-23 05:46] VITALS: BP 147/80
== END 2017-04-23 05:49 | disposition home or self-care (01) ==
LOC: PHED 04:28
DX: R33.9 Retention of urine, unspecified (principal); J44.9 Chronic obstructive pulmonary disease, unspecified; I10 Essential (primary) hypertension; Z79.82 Long term (current) use of aspirin
CPT/HCPCS: 51702; 81001; 87086

== ENCOUNTER 2017-06-06 10:23 | Inpatient (IN) | payer MEDICARE, BC ==
[~2017-06-06] VITALS: Ht 149.9 cm; Wt 48.2 kg
[~2017-06-06 10:23] MED LIST changes: -CIPR250T52 PO
[2017-06-06 10:37] VITALS: BP 87/44; PULSE 72; RESP 16; TEMP 97.3
--- NOTE | 2017-06-06 10:57 | PD ---
HPI Chief Complaint: GI Complaint Time Seen by Provider: 10:42 Travel History International Travel<30 days: No Contact w/Intl Traveler<30days: No Traveled to known affect area: No History of Present Illness HPI This 86-year-old female is complaining of crampy abdominal pain. She has not been able to urinate since early last night. She has had recurrent bouts of urinary retention. She has a history of COPD. She has not smoked for 40 years. She had lung surgery many years ago and it was thought she may have Kwadwo's granulomatosis. She has been on methotrexate many years. She does get dyspnea on exertion. She had some loose stools a couple of days ago. She has not had a bowel movement for a couple of days. She does not have a history of heart disease. She has had a cholecystectomy in the past PFSH Past Medical History Hx Anticoagulant Therapy: Yes (asa 81mg) Anxiety: Yes Cardiovascular Problems: Yes COPD: Yes Diminished Hearing: No Genitourinary: Yes (interstitial cystitis) Hypertension: Yes Respiratory: Yes (kwadwo's granulomatosis 1990'S RIGHT LUNG) Menopausal: Yes : 3 Para: 3 Past Surgical History Section: Yes (3C-SECTIONS) Cholecystectomy: Yes Gynecologic Surgery: Yes Hysterectomy: Yes Thoracic Surgery: Yes (RIGHT LOWER LOBECTOMY R/T ? INFECTION -CHRONIC) Social History Alcohol Use: No Tobacco Use: No (QUIT 1965 SMOKED 1 PPD) Substance Use: No Allergies-Medications (Allergen,Severity, Reaction): Coded Allergies: aspirin (Unverified Adverse Reaction, Unknown, GI UPSET, 06/06/17) pt states does not have a allergy to this medication Reported Meds & Prescriptions Reported Meds & Active Scripts Active Reported Ventolin Hfa 18 GM Inh (Albuterol Sulfate) 90 Mcg/Act Aer 2 Puff INH Q4-6H PRN Pyridium (Phenazopyridine HCl) 100 Mg Tab 100 Mg PO DAILY Rapaflo (Silodosin) 8 Mg Cap 8 Mg PO DAILY Folic Acid 0.8 Mg Tab 1 Mg PO M,T,W,F,SA,BRAGG Pantoprazole (Pantoprazole Sodium) 40 Mg Tab 40 Mg PO DAILY Olmesartan 40 Mg Tab 40 Mg PO DAILY Methotrexate 2.5 Mg Tab 7.5 Mg PO Q7D Metoprolol Tartrate 25 Mg Tab 12.5 Mg PO BID Amlodipine (Amlodipine Besylate) 5 Mg Tab 5 Mg PO DAILY Xanax (Alprazolam) 0.5 Mg Tab 0.5 Mg PO BID PRN Review of Systems General / Constitutional: No: Fever, Chills Eyes: No: Diploplia, Blurred Vision HENT: No: Headaches, Vertigo Cardiovascular: No: Chest Pain or Discomfort, Palpitations Respiratory: Positive: Shortness of Breath Gastrointestinal: Positive: Diarrhea, Abdominal Pain, No: Nausea, Vomiting Genitourinary: Positive: Decreased Urinary Output Musculoskeletal: No: Myalgias, Arthralgias Skin: No Rash, No Itching Neurologic: Positive: Weakness Endocrine: No: Heat Intolerance Hematologic/Lymphatic: No: Easy Bruising Physical Exam Narrative GENERAL: Thin chronically ill appearing female. Her oxygen saturation on room air was 88 SKIN: Focused skin assessment warm/dry. She appears quite pale HEAD: Atraumatic. Normocephalic. EYES: Pupils equal and round. No scleral icterus. No injection or drainage. ENT: No nasal bleeding or discharge. Mucous membranes pink and moist. NECK: Trachea midline. No JVD. CARDIOVASCULAR: Regular rate and rhythm. No murmur appreciated. RESPIRATORY: No accessory muscle use. Diminished breath sounds bilaterally GASTROINTESTINAL: Abdomen soft, some suprapubic fullness. Rectal exam there are no masses. Stool is brown and guaiac-negative MUSCULOSKELETAL: No obvious deformities. No clubbing. No cyanosis. No edema. NEUROLOGICAL: Awake and alert. No obvious cranial nerve deficits. Motor grossly within normal limits. Normal speech. PSYCHIATRIC: Appropriate mood and affect; insight and judgment normal. Data Data Last Documented VS Vital Signs Date Time Temp Pulse Resp B/P (MAP) Pulse Ox O2 Delivery O2 Flow Rate FiO2 06/06/17 10:37 97.3 72 16 87/44 (58) Orders Orders Electrocardiogram (06/06/17 10:52) Complete Blood Count With Diff (06/06/17 10:52) Comprehensive Metabolic Panel (06/06/17 10:52) Troponin I (06/06/17 10:52) B-Type Natriuretic Peptide (06/06/17 10:52) Lipase (06/06/17 10:52) Urinalysis - C+S If Indicated (06/06/17 10:52) Chest, Single Ap (06/06/17 10:52) Urinary Catheter Insert/Apply (06/06/17 10:52) Ct Abd/Pel W/O Iv Contrast (06/06/17 11:13) Ns + Kcl 40 Meq Inj (Ns + Kcl 40 Meq Inj (06/06/17 12:00) Urine Culture (06/06/17 11:30) Labs Laboratory Tests Test 06/06/17 11:05 06/06/17 11:30 White Blood Count 7.4 TH/MM3 Red Blood Count 2.80 MIL/MM3 Hemoglobin 8.4 GM/DL Hematocrit 26.0 % Mean Corpuscular Volume 92.6 FL Mean Corpuscular Hemoglobin 29.8 PG Mean Corpuscular Hemoglobin Concent 32.2 % Red Cell Distribution Width 13.7 % Platelet Count 376 TH/MM3 Mean Platelet Volume 7.8 FL Neutrophils (%) (Auto) 78.6 % Lymphocytes (%) (Auto) 14.3 % Monocytes (%) (Auto) 4.3 % Eosinophils (%) (Auto) 1.6 % Basophils (%) (Auto) 1.2 % Neutrophils # (Auto) 5.8 TH/MM3 Lymphocytes # (Auto) 1.1 TH/MM3 Monocytes # (Auto) 0.3 TH/MM3 Eosinophils # (Auto) 0.1 TH/MM3 Basophils # (Auto) 0.1 TH/MM3 CBC Comment DIFF FINAL Differential Comment Blood Urea Nitrogen 67 MG/DL Creatinine 2.70 MG/DL Random Glucose 101 MG/DL Total Protein 6.5 GM/DL Albumin 3.2 GM/DL Calcium Level 8.2 MG/DL Alkaline Phosphatase 122 U/L Aspartate Amino Transf (AST/SGOT) 126 U/L Alanine Aminotransferase (ALT/SGPT) 145 U/L Total Bilirubin 1.0 MG/DL Sodium Level 131 MEQ/L Potassium Level 3.2 MEQ/L Chloride Level 93 MEQ/L Carbon Dioxide Level 28.5 MEQ/L Anion Gap 10 MEQ/L Estimat Glomerular Filtration Rate 17 ML/MIN Troponin I 0.05 NG/ML B-Type Natriuretic Peptide 108 PG/ML Lipase 342 U/L Urine Collection Type CLEAN CATCH Urine Color ORANGE Urine Turbidity CLEAR Urine pH 5.0 Urine Specific [place] 1.009 Urine Protein 100 mg/dL Urine Glucose (UA) 100 mg/dL Urine Ketones NEG mg/dL Urine Occult Blood NEG Urine Nitrite POS Urine Bilirubin NEG Urine Leukocyte Esterase TRACE Urine WBC 0-2 /hpf Urine Squamous Epithelial Cells 0-5 /hpf Microscopic Urinalysis Comment CULTURE INDICATED Urine Collection Time 11:30 MDM Medical Decision Making Medical Screen Exam Complete: Yes Emergency Medical Condition: Yes Medical Record Reviewed: Yes Differential Diagnosis Differential includes urinary retention, bowel obstruction, Narrative Course Her hemoglobin today is 8.4. Review of chart shows that it was 11 in March. Her stool is guaiac negative. BUNs today's 67 with creatinine of 2.7. Jain catheter was inserted it was only 300 cc of urine obtained. Chest x-ray shows cardiomegaly and moderate right pleural effusion. Her BNP is 108. A CT scan of the abdomen and pelvis was obtained without contrast. There is purulent thickening in the rectosigmoid with some stranding surrounding fat and a small amount of free fluid or differential includes proctitis or distal colitis. There is no obstruction or free air there is a moderate partially loculated right pleural effusion and a 4 mm nodule in the left lower lobe. Diagnosis Primary Impression: Anemia Additional Impressions: Renal insufficiency Colitis Manuel Pina MD Jun 06, 2017 10:57
[2017-06-06 11:15] LABS: AUTOMATED NEUTROPHIL # 5.8 TH/MM3 (1.8-7.7); BASOPHIL # 0.1 TH/MM3 (0-0.2); BASOPHIL % 1.2 % (0.0-2.0); EOSINOPHIL # 0.1 TH/MM3 (0-0.4); EOSINOPHIL % 1.6 % (0.0-4.0); HEMOGLOBIN 8.4 GM/DL (11.6-15.3); LYMPH % 14.3 % (9.0-44.0); LYMPHOCYTE # 1.1 TH/MM3 (1.0-4.8); MEAN CELL VOLUME 92.6 FL (80.0-100.0); MEAN CORPUSCULAR HEMOGLOBIN 29.8 PG (27.0-34.0); MEAN CORPUSCULAR HGB CONC 32.2 % (32.0-36.0); MEAN PLATELET VOLUME 7.8 FL (7.0-11.0); MONO % 4.3 % (0.0-8.0); MONOCYTE # 0.3 TH/MM3 (0-0.9); NEUT % 78.6 % (16.0-70.0); PLATELET COUNT 376 TH/MM3 (150-450); RED CELL DISTRIBUTION WIDTH 13.7 % (11.6-17.2); WHITE BLOOD COUNT 7.4 TH/MM3 (4.0-11.0)
[2017-06-06 11:30] LABS: CHLORIDE 93 MEQ/L (98-107); SODIUM (NA) 131 MEQ/L (136-145)
[2017-06-06 11:33] LABS: CALCIUM 8.2 MG/DL (8.5-10.1)
[2017-06-06 11:34] LABS: ALBUMIN 3.2 GM/DL (3.4-5.0); BICARBONATE 28.5 MEQ/L (21.0-32.0); BLOOD UREA NITROGEN 67 MG/DL (7-18); GLUCOSE,RANDOM 101 MG/DL (74-106); LIPASE 342 U/L (73-393)
[2017-06-06 11:36] LABS: ALT (GPT) 145 U/L (10-53); AST (GOT) 126 U/L (15-37)
[2017-06-06 11:37] LABS: GLOMERULAR FILTRATION RATE 17 ML/MIN (>89)
[2017-06-06 11:38] LABS: TOTAL PROTEIN 6.5 GM/DL (6.4-8.2)
[2017-06-06 11:39] LABS: ALKALINE PHOSPHATASE 122 U/L (45-117)
[2017-06-06 11:42] LABS: TROPONIN I 0.05 NG/ML (0.02-0.05)
[2017-06-06 11:48] LABS: BILIRUBIN, URINE NEG (NEG); BLOOD, URINE NEG (NEG); GLUCOSE,URINE 100 mg/dL (NEG); KETONE, URINE NEG (NEG); NITRITE,URINE POS (NEG); URINE LEUKOCYTE ESTERASE TRACE (NEG)
--- NOTE | 2017-06-06 11:56 | RADRPT ---
EXAM DATE/TIME: 06/06/2017 11:40 [facility] COMPARISON: CHEST SINGLE AP, July 19, 2016, 16:00. INDICATIONS : Short of breath. MEDICAL HISTORY : Chronic obstructive pulmonary disease. Wendy's granulomatosis-right lung SURGICAL HISTORY : right lower lobectomy ENCOUNTER: Initial ACUITY: 2 days PAIN SCORE: 0/10 LOCATION: Bilateral chest FINDINGS: A single view of the chest demonstrates moderate right effusion. Scoliosis. Minimal basilar atelectas is. No pneumothorax. Tortuous aorta. Scoliosis. Heart size upper limits normal. CONCLUSION: 1. Moderate right effusion. Mild basilar airspace disease. No pneumothorax. Michael Roldan MD on June 06, 2017 at 11:53 Board Certified Radiologist. This report was verified electronically.
[2017-06-06 12:02] LABS: SQUAMOUS EPITHELIAL CELL URINE 0-5 /hpf (0-5); URINE COLOR ORANGE (YELLW/STRAW); WBC, URINE 0-2 /hpf (0-5)
--- NOTE | 2017-06-06 12:05 | RADRPT ---
EXAM DATE/TIME: 06/06/2017 11:51 [facility] COMPARISON: No previous studies available for comparison. INDICATIONS : Pelvic pressure and unable to urinate or have a bowel movement in four days. ORAL CONTRAST: No oral contrast ingested. RADIATION DOSE: 5.54 CTDIvol (mGy) MEDICAL HISTORY : Hypertension. Anticoagulant therapy. Wnedy's granulomatosis-right lung. SURGICAL HISTORY : Cholecystectomy. Hysterectomy. section.Right lower lung lobectomy. ENCOUNTER: Initial ACUITY: 4 - 6 days PAIN SCALE: 4/10 LOCATION: pelvis TECHNIQUE: Volumetric scanning of the abdomen and pelvis was performed. Using automated exposure control and ad justment of the mA and/or kV according to patient size, radiation dose was kept as low as reasonably achievable to obtain optimal diagnostic quality images. DICOM format image data is available electro nically for review and comparison. FINDINGS: Moderate partially loculated right pleural effusion. 4 mm nodule left lower lobe. Scarring and distal airway disease with peribronchial thickening right lung base. Heart size mildly enlarged. No acute findings in the liver, spleen, adrenals, kidneys or pancreas. Previous cholecystectomy. Within the pelvis there is some free fluid. There is also some mural thickening in the rectosigmoid w ith some inflammatory changes in the ischiorectal fossa. This represent proctitis. Jain catheter in decompressed bladder. CONCLUSION: 1. Mural thickening in the rectosigmoid with some stranding of surrounding fat and a small amount of free fluid. Differential diagnosis includes proctitis or distal colitis. 2. No obstruction or free air. 3. Moderate partially loculated right pleural effusion. 4. 4 mm nodule left lower lobe. Michael Roldan MD on June 06, 2017 at 11:59 Board Certified Radiologist. This report was verified electronically.
[2017-06-06] MEDS: NS + KCL 40 MEQ INJ 1,000 ML IV SCH ×2 (12:26→21:55)
[2017-06-06 12:30] VITALS: BP 101/55; PULSE 65; RESP 16; O2SAT 94
[2017-06-06] MEDS: SODIUM CHLOR 0.45% 1000 ML INJ 1,000 ML IV SCH (15:15)
[2017-06-06 15:29] VITALS: BP 105/50
[2017-06-06] MEDS ORDERED: SODIUM CHLOR 0.9% 1000 ML INJ 1,000 ML IV ONE (15:30)
--- NOTE | 2017-06-06 15:36 | HHI.HP ---
[facility] Service [facility] Primary Care Physician Nakul Colin MD Admission Diagnosis ANEMIA, RENAL INSUFFICIENCY, ABDOMINAL PAIN Diagnoses: Chief Complaint: Abdominal pain Travel History International Travel<30 Days: No Contact w/Intl Traveler <30 Da: No Traveled to Known Affected Are: No History of Present Illness 86-year-old white female being admitted for acute kidney injury. Patient was in her usual state of health until about 3 days ago when she began experiencing diffuse cramping abdominal pain that did not resolve with Tylenol. She says the cramping is diffuse and in the lower part of her abdomen. She denies any burning with urination. Denies having any nausea vomiting but does report having a substantially decreased by mouth intake. Feels weaker overall. Denies any tara shortness of breath or chest pain. Patient does report that she has difficulty with constipation, has a decent bowel movement about every 2 days. In the emergency room she was noted to have acutely elevated LFTs as well as a substantially acute kidney injury. A CT abdomen was obtained which radiology read is demonstrating proctitis and some stranding. There is also noted to be a right-sided pleural effusion of mild to moderate size. Patient was noted to be saturating down to 85% on room air and would, well with 2 L. She denies wearing oxygen at home. Review of Systems Except as stated in HPI: all other systems reviewed are Neg Past Family Social History Past Medical History Ruthie's granulomatosis Past Surgical History Cholecystectomy, appendectomy, sections, hysterectomy, partial lobar lung resection Allergies: Coded Allergies: aspirin (Unverified Adverse Reaction, Unknown, GI UPSET, 06/06/17) pt states does not have a allergy to this medication Family History HTN Social History tobacco use, lives in what sounds like [place] Physical Exam Vital Signs Vital Signs Date Time Temp Pulse Resp B/P (MAP) Pulse Ox O2 Delivery O2 Flow Rate FiO2 06/06/17 12:30 65 16 101/55 (70) 94 Nasal Cannula 2.00 06/06/17 10:37 97.3 72 16 87/44 (58) Physical Exam VS: afebrile GENERAL: No acute distress, lying in bed, appears exhausted and pale SKIN: Warm and dry. EYES: No scleral icterus. No injection or drainage. ENT: No nasal bleeding or discharge. Mucous membranes pink and moist. CARDIOVASCULAR: Regular rate and rhythm. 2/6 ejection murmur RESPIRATORY: No accessory muscle use. Decreased breath sounds in the right base , clear otherwise with no wheezing or crackles Abdomen : Nondistended, minimal tenderness to palpation diffusely, no rebound or guarding, no palpable masses Extremities: No clubbing, cyanosis, or edema. No obvious deformities. MUSCULOSKELETAL: adequate muscle bulk and tone for age and habitus NEUROLOGICAL: Awake and alert. No obvious cranial nerve deficits. No facial droop nor slurred speech noted. PSYCHIATRIC: Appropriate mood and affect; insight and judgment normal. Laboratory Laboratory Tests Test 06/06/17 11:05 06/06/17 11:30 White Blood Count 7.4 Red Blood Count 2.80 Hemoglobin 8.4 Hematocrit 26.0 Mean Corpuscular Volume 92.6 Mean Corpuscular Hemoglobin 29.8 Mean Corpuscular Hemoglobin Concent 32.2 Red Cell Distribution Width 13.7 Platelet Count 376 Mean Platelet Volume 7.8 Neutrophils (%) (Auto) 78.6 Lymphocytes (%) (Auto) 14.3 Monocytes (%) (Auto) 4.3 Eosinophils (%) (Auto) 1.6 Basophils (%) (Auto) 1.2 Neutrophils # (Auto) 5.8 Lymphocytes # (Auto) 1.1 Monocytes # (Auto) 0.3 Eosinophils # (Auto) 0.1 Basophils # (Auto) 0.1 CBC Comment DIFF FINAL Differential Comment Blood Urea Nitrogen 67 Creatinine 2.70 Random Glucose 101 Total Protein 6.5 Albumin 3.2 Calcium Level 8.2 Alkaline Phosphatase 122 Aspartate Amino Transf (AST/SGOT) 126 Alanine Aminotransferase (ALT/SGPT) 145 Total Bilirubin 1.0 Sodium Level 131 Potassium Level 3.2 Chloride Level 93 Carbon Dioxide Level 28.5 Anion Gap 10 Estimat Glomerular Filtration Rate 17 Troponin I 0.05 B-Type Natriuretic Peptide 108 Lipase 342 Urine Collection Type CLEAN CATCH Urine Color ORANGE Urine Turbidity CLEAR Urine pH 5.0 Urine Specific [place] 1.009 Urine Protein 100 Urine Glucose (UA) 100 Urine Ketones NEG Urine Occult Blood NEG Urine Nitrite POS Urine Bilirubin NEG Urine Leukocyte Esterase TRACE Urine WBC 0-2 Urine Squamous Epithelial Cells 0-5 Microscopic Urinalysis Comment CULTURE INDICATED Urine Collection Time 11:30 Date/Time Source Procedure Growth Status 06/06/17 11:30 Urine Clean Catch Urine Culture Pending Received Result Diagram: 06/06/17 1105 06/06/17 1105 Imaging Last Impressions Abdomen/Pelvis CT 06/06/17 1113 Signed Impressions: Service Date/Time: Tuesday, June 06, 2017 11:51 - CONCLUSION: 1. Mural thickening in the rectosigmoid with some stranding of surrounding fat and a small amount of free fluid. Differential diagnosis includes proctitis or distal colitis. 2. No obstruction or free air. 3. Moderate partially loculated right pleural effusion. 4. 4 mm nodule left lower lobe. Michael Roldan MD Chest X-Ray 06/06/17 1052 Signed Impressions: Service Date/Time: Tuesday, June 06, 2017 11:40 - CONCLUSION: 1. Moderate right effusion. Mild basilar airspace disease. No pneumothorax. Michael Roldan MD Caprini VTE Risk Assessment Caprini VTE Risk Assessment: Mod/High Risk (score >= 2) Caprini Risk Assessment Model Point Value = 1 Point Value = 2 Point Value = 3 Point Value = 5 Age 41-60 Minor surgery BMI > 25 kg/m2 Swollen legs Varicose veins or History of unexplained or recurrent spontaneous Oral contraceptives or hormone replacement Sepsis (< 1 month) Serious lung disease, including pneumonia (< 1 month) Abnormal pulmonary function Acute myocardial infarction Congestive heart failure (< 1 month) History of inflammatory bowel disease Medical patient at bed rest Age 61-74 Arthroscopic surgery Major open surgery (> 45 min) Laparoscopic surgery (> 45 min) Malignancy Confined to bed (> 72 hours) Immobilizing plaster cast Central venous access Age >= 75 History of VTE Family history of VTE Factor V Leiden Prothrombin [id number] Lupus anticoagulant Anticardiolipin antibodies Elevated serum homocysteine Heparin-induced thrombocytopenia Other congenital or acquired thrombophilia Stroke (< 1 month) Elective arthroplasty Hip, pelvis, or leg fracture Acute spinal cord injury (< 1 month) Prophylaxis Regimen Total Risk Factor Score Risk Level Prophylaxis Regimen 0-1 Low Early ambulation 2 Moderate Order ONE of the following: *Sequential Compression Device (SCD) *Heparin 5000 units SQ BID 3-4 Higher Order ONE of the following medications: *Heparin 5000 units SQ TID *Enoxaparin/Lovenox 40 mg SQ daily (WT < 150 kg, CrCl > 30 mL/min) *Enoxaparin/Lovenox 30 mg SQ daily (WT < 150 kg, CrCl > 10-29 mL/min) *Enoxaparin/Lovenox 30 mg SQ BID (WT < 150 kg, CrCl > 30 mL/min) AND/OR *Sequential Compression Device (SCD) 5 or more Highest Order ONE of the following medications: *Heparin 5000 units SQ TID (Preferred with Epidurals) *Enoxaparin/Lovenox 40 mg SQ daily (WT < 150 kg, CrCl > 30 mL/min) *Enoxaparin/Lovenox 30 mg SQ daily (WT < 150 kg, CrCl > 10-29 mL/min) *Enoxaparin/Lovenox 30 mg SQ BID (WT < 150 kg, CrCl > 30 mL/min) AND *Sequential Compression Device (SCD) Assessment and Plan Assessment and Plan Acute hypoxic respiratory failure - Desats down to 85%, we'll consider thoracentesis in a.m. obtaining INR. Oxygen as needed Acute kidney injury - Secondary to dehydration, IV fluids Abdominal pain - Possibly multifactorial with elevated LFTs and substantial constipation noted on CT scan that I independently reviewed, in addition to radiology read of some inflammation in the proctosigmoid region - We'll cover with Rocephin and Flagyl - Fleet enema and Relistor if the patient receives morphine Transaminitis - Unclear etiology, will obtain GGT and trend in a.m., hopefully improving with IV fluids Ruthie's granulomatosis - May use home methotrexate Urinary retention - acute on chronic, UC pending, will touch base with patient's urologist and see if there is any further recommendations. Hold home antihypertensives until blood pressure becomes more stable. We'll proceed with sequential compression devices for now given that the patient may undergo an invasive procedure for tomorrow morning and a potential dose of Lovenox administered at this time will persist in her system longer than desired given her impaired renal function. Physician Certification 2 Midnight Certification Type: Admission for Inpatient Services Order for Inpatient Services The services are ordered in accordance with Medicare regulations or non- Medicare payer requirements, as applicable. In the case of services not specified as inpatient-only, they are appropriately provided as inpatient services in accordance with the 2-midnight benchmark. Estimated LOS (days): 2 2 days is the estimated time the patient will need to remain in the hospital, assuming treatment plan goals are met and no additional complications. Post-Hospital Plan: Not yet determined Fahad Marsh MD Jun 06, 2017 15:36
[2017-06-06] MEDS ORDERED: SIMETHICONE 80 MG CHEWABLE TAB CHEW ONE (15:45)
[2017-06-06] MEDS ORDERED: SOD PHOSPHATE/SOD BIPHOSPHATE (ADULT) ENEMA 133ML RECTAL ONE (15:45)
[2017-06-06 16:00] VITALS: BP 105/58; PULSE 67; RESP 20; TEMP 96; O2SAT 95
[2017-06-06 20:00] VITALS: BP 121/59; PULSE 74; RESP 20; TEMP 96.1; O2SAT 92
[2017-06-06] MEDS: metroNIDAZOLE 500 MG INJ 100 ML IV SCH (20:30)
[2017-06-06] MEDS: cefTRIAXone INJ 1,000 MG in SODIUM CHLORIDE 0.9% INJ 100 ML IV SCH (21:55)
--- NOTE | 2017-06-06 22:03 | EKG ---
Date Performed: 06/06/2017 Time Performed: 10:59:43 PTAGE: 86 years EKG: Sinus rhythm POSSIBLE INFERIOR MYOCARDIAL INFARCTION BORDERLINE ECG PREVIOUS TRACING : 10/31/2015 14.31 Since previous tracing, no significant change noted DOCTOR: Quinton Packer Interpretating Date/Time 06/06/2017 22:02:38
[2017-06-07] VITALS (7 sets, daily range): BP systolic 103–115; BP diastolic 54–65; PULSE 77–99; RESP 15–22; TEMP 96.3–98.7; O2SAT 85–94
[2017-06-07] MEDS: metroNIDAZOLE 500 MG INJ 100 ML IV SCH ×3 (00:18→17:18)
[2017-06-07] MEDS: SODIUM CHLOR 0.45% 1000 ML INJ 1,000 ML IV SCH ×3 (06:00→21:53)
[2017-06-07 07:18] LABS: ALBUMIN 2.8 GM/DL (3.4-5.0); ALKALINE PHOSPHATASE 108 U/L (45-117); ALT (GPT) 129 U/L (10-53); AST (GOT) 94 U/L (15-37); BICARBONATE 24.7 MEQ/L (21.0-32.0); BLOOD UREA NITROGEN 58 MG/DL (7-18); CALCIUM 7.7 MG/DL (8.5-10.1); CHLORIDE 106 MEQ/L (98-107); GLOMERULAR FILTRATION RATE 22 ML/MIN (>89); GLUCOSE,RANDOM 91 MG/DL (74-106); SODIUM (NA) 141 MEQ/L (136-145); TOTAL BILIRUBIN ADULT 0.7 MG/DL (0.2-1.0); TOTAL PROTEIN 5.8 GM/DL (6.4-8.2)
--- NOTE | 2017-06-07 09:54 | RADRPT ---
EXAM DATE/TIME: 06/07/2017 09:41 [facility] COMPARISON: No previous studies available for comparison. INDICATIONS : Post right thoracentesis. MEDICAL HISTORY : Chronic obstructive pulmonary disease.Wendy's granulomatosis-right lung SURGICAL HISTORY : right lower lobectomy ENCOUNTER: Subsequent ACUITY: 3 days PAIN SCORE: 1/10 LOCATION: Right chest FINDINGS: A single frontal expiratory view of the chest was performed. A tiny right pleural effusion. Postsurgi renaldo changes involving muscle the right. No pneumothorax.. The cardio-mediastinal contours and bronchopulmonary markings are unremarkable for an expiratory exam . Osseous structures are intact. Scoliotic changes. CONCLUSION: No pneumothorax. Tevin Matamoros MD on June 07, 2017 at 9:50 Board Certified Radiologist. This report was verified electronically.
--- NOTE | 2017-06-07 10:40 | HHI.PR ---
Subjective Remarks Nursing denies any deterioration since last night. Patient herself says she did have a little bowel movement but isn't sure exactly how much. She says her cramping is slightly improved today. Objective Vital Signs Date Time Temp Pulse Resp B/P (MAP) Pulse Ox O2 Delivery O2 Flow Rate FiO2 06/07/17 07:50 97.1 86 16 110/56 (74) 91 06/07/17 04:00 96.5 99 15 103/57 (72) 93 06/07/17 03:47 Nasal Cannula 2.00 06/07/17 00:13 97.7 79 20 103/62 (76) 92 06/06/17 20:00 96.1 74 20 121/59 (79) 92 06/06/17 16:00 96.0 67 20 105/58 (74) 95 06/06/17 15:29 66 16 105/50 (68) 94 2.00 06/06/17 12:30 65 16 101/55 (70) 94 Nasal Cannula 2.00 I/O 06/06/17 06/06/17 06/06/17 06/07/17 06/07/17 06/07/17 07:00 15:00 23:00 07:00 15:00 23:00 Intake Total 240 ml 1000 ml Output Total 400 ml Balance -160 ml 1000 ml Intake Oral 240 ml IV Total 1000 ml Output Urine Total 400 ml # Bowel Movements 2 Result Diagram: 06/06/17 1105 06/07/17 0540 Objective Remarks Nontender abdomen, nondistended, positive bowel sounds, lying in bed, no acute distress his cannula and nose, no cyanosis A/P Assessment and Plan Acute hypoxic respiratory failure - Rechecking O2 sat today after thoracentesis, suspect this was due to pleural effusion Oxygen as needed Acute kidney injury - Secondary to dehydration, improving, continue IV fluids Abdominal pain - improved partially, likely 2/2 substantial constipation noted on CT scan that I independently reviewed, in addition to radiology read of some inflammation in the proctosigmoid region - Status post Fleet enema, continue Rocephin and Flagyl, IVFs, adding miralax Transaminitis - most likely from methotrexate since GGT is within normal limits as well as CK from methotrexate since GGT and CK are within normal limits, overall improving with fluids Ruthie's granulomatosis - holding home methotrexate in light of transaminitis Urinary retention - resuming home rapaflo; possibly 2/2 UTI; - acute on chronic, UC pending, unable to obtain urologist contact info at this time. Hold home antihypertensives until blood pressure becomes more stable. PT/OT eval due to frail overall appearance. lovenox to start tonight Fahad Marsh MD Jun 07, 2017 10:40
--- NOTE | 2017-06-07 11:14 | RADRPT ---
EXAM DATE/TIME: 06/07/2017 07:51 [facility] COMPARISON: No previous studies available for comparison. INDICATIONS : Right pleural effusion. MEDICAL HISTORY : Hypertension. Anticoagulant therapy. Wendy's granulomatosis-right lung. SURGICAL HISTORY : Cholecystectomy. Hysterectomy. section.Right lower lung lobectomy. ENCOUNTER: Initial ACUITY: 1 day PAIN SCORE: 0/10 LOCATION: Right chest FLUID: Total volume of 600 cc of clear, yellow fluid was removed. Fluid was sent to lab for ordered studies. Post procedure scanning reveals no hematoma or other complication. TECHNIQUE: 1. Ultrasound guidance for thoracentesis. 2. Thoracentesis. The risks, benefits, and alternatives to ultrasound guided thoracentesis were explained to the patien t in lay simple terms, including the risk of bleeding and infection. Written and verbal informed con sent was obtained. Appropriate area for thoracentesis was marked under ultrasound guidance with the patient in the uprig ht position. Overlying skin was prepped and draped in the usual sterile fashion and with local anest hetic, a dermatotomy was made with an 11 blade scalpel. A 6 Lao thoracentesis catheter was placed in the pleural space and fluid was removed. Catheter was then removed and a sterile dressing applie d. There were no immediate complications. At the 600s cc maurice, patient described significant discomfo rt in the lower right chest and therefore, procedure was halted. Chest radiograph is to be obtained. CONCLUSION: Uncomplicated ultrasound guided thoracentesis. Juan Quiñonez MD on June 07, 2017 at 11:09 Board Certified Radiologist. This report was verified electronically.
[2017-06-07 11:25] LABS: PLEURAL FLUID RBC 13 /MM3 (0-0); PLEURAL FLUID WBC 15 /MM3 (0-10)
[2017-06-07 11:39] LABS: PLEURAL FLUID EOS 2 %; PLEURAL FLUID LYMPHS 92 %; PLEURAL FLUID MONOS 4 %; PLEURAL FLUID POLYS (SEGS) 2 %
[2017-06-07 13:22] LABS: GLUCOSE,PLEURAL FLUID 103 MG/DL
[2017-06-07] MEDS: POLYETHYLENE GLYCOL 17 GM PKG PO SCH (17:00)
[2017-06-07] MEDS: ALPRAZolam 0.5 MG TAB PO PRN (17:19)
[2017-06-07] MEDS: cefTRIAXone INJ 1,000 MG in SODIUM CHLORIDE 0.9% INJ 100 ML IV SCH (17:20)
[2017-06-07 17:39] LABS: AUTOMATED NEUTROPHIL # 6.2 TH/MM3 (1.8-7.7); BASOPHIL % 0.2 % (0.0-2.0); EOSINOPHIL # 0.1 TH/MM3 (0-0.4); EOSINOPHIL % 1.9 % (0.0-4.0); HEMOGLOBIN 7.5 GM/DL (11.6-15.3); LYMPH % 10.1 % (9.0-44.0); LYMPHOCYTE # 0.8 TH/MM3 (1.0-4.8); MEAN CELL VOLUME 94.1 FL (80.0-100.0); MEAN CORPUSCULAR HEMOGLOBIN 29.5 PG (27.0-34.0); MEAN CORPUSCULAR HGB CONC 31.4 % (32.0-36.0); MEAN PLATELET VOLUME 6.9 FL (7.0-11.0); MONO % 5.1 % (0.0-8.0); MONOCYTE # 0.4 TH/MM3 (0-0.9); NEUT % 82.7 % (16.0-70.0); PLATELET COUNT 379 TH/MM3 (150-450); RED BLOOD COUNT 2.55 MIL/MM3 (4.00-5.30); RED CELL DISTRIBUTION WIDTH 13.9 % (11.6-17.2); WHITE BLOOD COUNT 7.5 TH/MM3 (4.0-11.0)
[2017-06-07] MEDS: TAMSULOSIN HCL 0.4 MG CAP PO SCH (17:53)
[2017-06-07] MEDS: PHENAZOPYRIDINE HCL 100 MG TAB PO SCH (17:54)
[2017-06-07] MEDS ORDERED: SOD PHOSPHATE/SOD BIPHOSPHATE (ADULT) ENEMA 133ML RECTAL ONE (18:00)
[2017-06-07] MEDS ORDERED: ENOXAPARIN SODIUM 30 MG/0.3 ML SYRINGE SQ SCH (20:00)
[2017-06-07] MEDS: METOPROLOL TARTRATE 25 MG TAB PO SCH (21:48)
[2017-06-08] VITALS (13 sets, daily range): BP systolic 99–142; BP diastolic 51–82; PULSE 66–80; RESP 16–21; TEMP 95.6–98; O2SAT 91–96
[2017-06-08] MEDS: metroNIDAZOLE 500 MG INJ 100 ML IV SCH ×3 (00:22→16:23)
[2017-06-08] MEDS: ALPRAZolam 0.5 MG TAB PO PRN (05:48)
[2017-06-08 06:37] LABS: AUTOMATED NEUTROPHIL # 5.2 TH/MM3 (1.8-7.7); BASOPHIL % 0.3 % (0.0-2.0); EOSINOPHIL # 0.2 TH/MM3 (0-0.4); EOSINOPHIL % 3.4 % (0.0-4.0); HEMATOCRIT 21.5 % (35.0-46.0); LYMPH % 15.4 % (9.0-44.0); LYMPHOCYTE # 1.1 TH/MM3 (1.0-4.8); MEAN CELL VOLUME 93.8 FL (80.0-100.0); MEAN CORPUSCULAR HEMOGLOBIN 30.2 PG (27.0-34.0); MEAN CORPUSCULAR HGB CONC 32.2 % (32.0-36.0); MEAN PLATELET VOLUME 8.2 FL (7.0-11.0); MONO % 6.8 % (0.0-8.0); MONOCYTE # 0.5 TH/MM3 (0-0.9); NEUT % 74.1 % (16.0-70.0); PLATELET COUNT 354 TH/MM3 (150-450); RED BLOOD COUNT 2.29 MIL/MM3 (4.00-5.30); RED CELL DISTRIBUTION WIDTH 13.9 % (11.6-17.2)
[2017-06-08 06:44] LABS: CALCIUM 7.9 MG/DL (8.5-10.1)
[2017-06-08 06:45] LABS: BICARBONATE 27.4 MEQ/L (21.0-32.0)
[2017-06-08 06:48] LABS: CREATININE 1.7 MG/DL (0.50-1.00)
[2017-06-08 06:52] LABS: HEMOGLOBIN 6.9 GM/DL (11.6-15.3)
[2017-06-08 07:53] LABS: TARGET CELLS 1+ (NORMAL)
[2017-06-08] MEDS: TAMSULOSIN HCL 0.4 MG CAP PO SCH (09:00)
[2017-06-08] MEDS: POLYETHYLENE GLYCOL 17 GM PKG PO SCH (09:00)
--- NOTE | 2017-06-08 09:36 | HHI.PR ---
Subjective Remarks Nursing reports that the patient's blood did drop from 8.8-6.9. Patient herself says that her abdominal pain is improved. Says she's had a little bowel movement. Tolerating clear intake. Objective Vital Signs Date Time Temp Pulse Resp B/P (MAP) Pulse Ox O2 Delivery O2 Flow Rate FiO2 06/08/17 07:50 97.3 77 20 110/58 (75) 94 06/08/17 03:58 97.2 67 20 102/61 (75) 95 06/08/17 02:34 Nasal Cannula 2.00 06/08/17 00:00 98.0 69 16 99/51 (67) 94 06/07/17 19:33 94 06/07/17 19:32 96.4 77 22 115/65 (82) 85 06/07/17 15:50 98.7 96 16 114/60 (78) 91 06/07/17 11:50 96.3 86 16 112/54 (73) 90 I/O 06/07/17 06/07/17 06/07/17 06/08/17 06/08/17 06/08/17 06:59 14:59 22:59 06:59 14:59 22:59 Intake Total 1000 ml 450 ml 420 ml Output Total 420 ml 200 ml Balance 1000 ml 30 ml 220 ml Intake Oral 450 ml 120 ml IV Total 1000 ml 300 ml Output Urine Total 420 ml 200 ml # Voids 4 # Bowel Movements 8 4 Result Diagram: 06/08/17 0520 06/08/17 0520 Objective Remarks Nontender abdomen, nondistended, positive bowel sounds, lying in bed, no acute distress, sitting up in bed A/P Assessment and Plan Acute anemia - With abdominal pain present, colonoscopic examination is crucial to rule out any active source of bleeding. Blood proximal have been ordered, transfusion order in place, consulting GI, placing order for afternoon GoLYTELY for preparation. Patient open to procedure. Acute hypoxic respiratory failure - Resolved Acute kidney injury - Secondary to dehydration, improving, continue IV fluids Abdominal pain - further improved today, continue miralax Transaminitis - most likely from methotrexate since GGT is within normal limits as well as CK from methotrexate since GGT and CK are within normal limits, overall improving with fluids Ruthie's granulomatosis - holding home methotrexate in light of transaminitis Urinary retention - improved, w/o patrick now, continue home rapaflo Hold home antihypertensives until blood pressure becomes more stable. PT/OT eval due to frail overall appearance. stopping lovenox in light of h/h drop, starting SCDs Fahad Marsh MD Jun 08, 2017 09:36
[2017-06-08] MEDS ORDERED: POTASSIUM CHLORIDE 10 MEQ CONTROLLED RELEASE TAB PO ONE ×2 (09:45→16:15)
[2017-06-08] MEDS ORDERED: SODIUM CHLOR 0.9% 250 ML INJ 250 ML IV ONE (09:45)
[2017-06-08] MEDS: METOPROLOL TARTRATE 25 MG TAB PO SCH ×2 (09:50→22:43)
[2017-06-08] MEDS: PHENAZOPYRIDINE HCL 100 MG TAB PO SCH (09:53)
--- NOTE | 2017-06-08 10:32 | HHI.FF ---
Face to Face Verification Diagnosis: (1) Renal insufficiency (2) Anemia (3) Colitis Physical Therapy Order: Evaluate and Treat Occupational Therapy Order: Evaluate and Treat Home Health Nursing Order: Medical education Nursing assessment with vital signs I have seen patient Stephanie Sharif on 06/08/17. My clinical findings support the need for the requested home health care services because: Limited ability to care for self I certify that my clinical findings support that this patient is homebound because: Unsafe to leave home unassisted Fahad Marsh MD Jun 08, 2017 10:32
[2017-06-08 12:11] LABS: % SATURATION IRON PROFILE 20.1 % (20-50); IRON (FE) 48 MCG/DL (50-170); TOTAL IRON BINDING CAPACITY 239 MCG/DL (250-450)
[2017-06-08] MEDS ORDERED: PEG (High)/E-LYTE SOLN 4000 ML BTL PO ONE ×2 (16:00→17:15)
[2017-06-08] MEDS: cefTRIAXone INJ 1,000 MG in SODIUM CHLORIDE 0.9% INJ 100 ML IV SCH (17:00)
[2017-06-08] MEDS: SODIUM CHLOR 0.45% 1000 ML INJ 1,000 ML IV SCH (23:54)
[2017-06-09] VITALS (8 sets, daily range): BP systolic 134–177; BP diastolic 67–80; PULSE 70–82; RESP 15–20; TEMP 96.5–97.9; O2SAT 88–99
[2017-06-09] MEDS: metroNIDAZOLE 500 MG INJ 100 ML IV SCH ×3 (02:40→14:55)
--- NOTE | 2017-06-09 06:11 | MB ---
cc: MICHAEL HONG M.D., GEORGE MD MASOODI, HAMMAD M. MD DATE OF CONSULTATION 06/08/[address] Marsh REASON FOR CONSULTATION Lower abdominal pain. Acute drop in hemoglobin. Colitis on CT scan. HISTORY OF PRESENT ILLNESS Ms. Sharif is an 86-year-old previously healthy lady who basically presented with lower abdominal pain, was found to have pleural effusion, colitis as well as acute kidney injury. Hydration has resulted in improvement in her kidney functions. CT scan showed left-sided colitis. She had an acute drop in her hemoglobin without any overt sign of bleeding has prompted GI consultation. Hemoglobin went from 8.4 to 6.9 today. The patient denies any signs of bleeding. She states she does have an upper abdominal pain and a lower abdominal pain which has been present on and off for some time. Previous EGD and colonoscopy 7 [address] Ortega. REVIEW OF SYSTEMS No active bleeding, lower abdominal pain. No nausea or vomiting. PAST MEDICAL HISTORY Ruthie's granulomatosis. SURGICAL HISTORY 1. Cholecystectomy. 2. Appendectomy. 3. . 4. Hysterectomy. 5. Partial lobar lung resection. 6. Paracentesis this admission. 7. EGD and colonoscopy 7 years ago. FAMILY HISTORY Noncontributory. SOCIAL HISTORY Significant tobacco no tobacco and no alcohol reported. MEDICATIONS On admission include - 1. Methotrexate. 2. Bentyl. 3. Rapaflo. 4. Pantoprazole. 5. Metoprolol. 6. Amlodipine. 7. Xanax. PHYSICAL EXAMINATION GENERAL: A well-nourished lady in no apparent distress. VITAL SIGNS: Stable. HEAD AND NECK EXAMINATION: Anicteric sclerae. CHEST: Bilateral air entry with rales. ABDOMEN: Soft, slightly distended. Bowel sounds are present. 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 RECTAL: Exam deferred at this time. LABORATORY DATA White count 7, hemoglobin 6.9. Creatinine 1.7, AST 94, ALT 129. INR is 1.0. IMAGING STUDIES CT of the abdomen and pelvis reveals thickening around the left side of the colon, moderate amount of stool present in the colon. Pleural effusion which has since been tapped. RECOMMENDATIONS 1. EGD and colonoscopy were discussed with the patient. She is already doing a GoLYTELY prep. 2. Transfuse 2 units of blood today. Stool guaiac is heme-negative. The risks and limitations were discussed with the patient. She is agreeable to proceed. This will be scheduled for tomorrow. Thank you for this referral. MD JAN Miller/YAIMA /5:19 PM /8:16 AM
[2017-06-09] MEDS: POLYETHYLENE GLYCOL 17 GM PKG PO SCH (09:00)
[2017-06-09] MEDS: SODIUM CHLOR 0.45% 1000 ML INJ 1,000 ML IV SCH (09:55)
[2017-06-09] MEDS: PHENAZOPYRIDINE HCL 100 MG TAB PO SCH (10:41)
[2017-06-09] MEDS: METOPROLOL TARTRATE 25 MG TAB PO SCH ×2 (10:41→21:41)
[2017-06-09] MEDS: TAMSULOSIN HCL 0.4 MG CAP PO SCH (10:41)
--- NOTE | 2017-06-09 11:40 | RADRPT ---
EXAM DATE/TIME: 06/09/2017 11:23 [facility] COMPARISON: CHEST EXPIRATION ONLY, June 07, 2017, 9:41. INDICATIONS : Short of breath. MEDICAL HISTORY : Chronic obstructive pulmonary disease.Wendy's granulomatosis-right lung SURGICAL HISTORY : right lower lobectomy ENCOUNTER: Subsequent ACUITY: 4 - 6 days PAIN SCORE: 0/10 LOCATION: Bilateral chest FINDINGS: The heart is enlarged. Mild interstitial edema is present. Small bilateral pleural effusions are no jaja. Side changes right base surgical clips noted. No pneumothorax. No pleural effusion. CONCLUSION: Moderate congestive failure. Postsurgical changes on the right. Minimal fluid reacc umulation when compared to 124/18 Blaine Stephens MD FACR on June 09, 2017 at 11:36 Board Certified Radiologist. This report was verified electronically.
[2017-06-09 11:44] LABS: AUTOMATED NEUTROPHIL # 6.6 TH/MM3 (1.8-7.7); BASOPHIL % 0.3 % (0.0-2.0); EOSINOPHIL # 0.1 TH/MM3 (0-0.4); EOSINOPHIL % 1.6 % (0.0-4.0); HEMATOCRIT 35.6 % (35.0-46.0); HEMOGLOBIN 11.4 GM/DL (11.6-15.3); LYMPH % 9.2 % (9.0-44.0); LYMPHOCYTE # 0.7 TH/MM3 (1.0-4.8); MEAN CELL VOLUME 92.2 FL (80.0-100.0); MEAN CORPUSCULAR HEMOGLOBIN 29.5 PG (27.0-34.0); MEAN PLATELET VOLUME 8.1 FL (7.0-11.0); MONOCYTE # 0.6 TH/MM3 (0-0.9); NEUT % 80.9 % (16.0-70.0); PLATELET COUNT 357 TH/MM3 (150-450); RED BLOOD COUNT 3.86 MIL/MM3 (4.00-5.30); RED CELL DISTRIBUTION WIDTH 14.4 % (11.6-17.2)
[2017-06-09 11:57] LABS: CALCIUM 8.9 MG/DL (8.5-10.1); CREATININE 1.2 MG/DL (0.50-1.00)
[2017-06-09] MEDS ORDERED: methylPREDNISolone SOD SUCC 125 MG/2 ML VIAL IV PUSH SCH (12:00)
[2017-06-09] MEDS ORDERED: FUROSEMIDE 40 MG/4 ML VIAL IV PUSH ONE (13:00)
--- NOTE | 2017-06-09 13:18 | GIPROC ---
[facility] [address] [place] [address], [id number] EGD PROCEDURE REPORT EXAM DATE: 06/09/2017 PATIENT NAME: Stephanie Sharif MR #: [id number] BIRTHDATE: 1930 ATTENDING: Dawn Og MD ORDER #: [id number] DRIER HELPER: Dorothy Vasquez STATUS: inpatient INDICATIONS: The patient is a 86 yr old female here for an EGD due to iron deficiency anemia PROCEDURE PERFORMED: EGD w/ biopsy MEDICATIONS: None and Per Anesthesia. TOPICAL ANESTHETIC: CONSENT: The patient understands the risks and benefits of the procedure and understands that these risks include, but are not limited to: sedation, allergic reaction, infection, perforation and/or bleeding. Alternative means of evaluation and treatment include, among others: physical exam, x-rays, and/or surgical intervention. The patient elects to proceed with this endoscopic procedure. medical equipment was checked for proper function. Hand hygiene and appropriate measures for infection prevention was taken. After the risks, benefits and alternatives of the procedure were thoroughly explained, Informed consent was verified, confirmed and timeout was successfully executed by the treatment team. The patient was anesthetized with topical anesthesia and the Pentax [id number] endoscope was introduced through the mouth and advanced to the second portion of the duodenum. Retroflexed views revealed no abnormalities The gastroscope was then slowly withdrawn and removed. ESOPHAGUS: There was LA Class A esophagitis noted. A biopsy was performed using cold forceps. Sample sent for histology. STOMACH: There was erythematous moderate gastritis in the gastric antrum. DUODENUM: The duodenal mucosa appeared normal in the bulb and second portion of the duodenum. ADVERSE EVENTS: There were no complications. IMPRESSIONS: 1. There was LA Class A esophagitis noted; biopsy was performed 2. There was erythematous gastritis in the gastric antrum 3. Normal duodenal mucosa in the bulb and second portion of the duodenum 4. Retroflexed views revealed no abnormalities RECOMMENDATIONS: 1. Await biopsy results. Biopsy results will not be ready for 7-10 days. If you don't hear from us in two weeks, call our office for biopsy results. 2. Anti-reflux regimen 3. Continue PPI PATIENT CONDITION: stable DISPOSITION: Inpatient REPEAT EXAM: Return 1 year EGD pending biopsy results Dawn Og MD eSigned: Dawn Og MD 06/09/2017 1:17 PM cc: PATIENT NAME: Stephanie Sharif MR#: [id number]
--- NOTE | 2017-06-09 13:20 | GIPROC ---
[address], [address] COLONOSCOPY PROCEDURE REPORT EXAM DATE: 06/09/2017 PATIENT NAME: Stephanie Sharif MR #: [id number] BIRTHDATE: 1930 ENDOSCOPIST: Dawn Og MD ORDER #: [id number] WEIGH AND CHARGE WORKER: Dorothy Vasquez RN STATUS: inpatient INDICATIONS: The patient is a 86 yr old female here for a colonoscopy due to iron deficiency anemia PROCEDURE PERFORMED: Colonoscopy, diagnostic MEDICATIONS: None and Per Anesthesia. PREP QUALITY: The [place] Bowel Prep Score was Right colon 2, Mid colon 2, and Left colon 2. Total = 6. PREP TYPE:GoLytely ESTIMATED BLOOD LOSS: None CONSENT: The patient understands the risks and benefits of the procedure and understands that these risks include, but are not limited to: sedation, allergic reaction, infection, perforation and/or bleeding. Alternative means of evaluation and treatment include, among others: physical exam, x-rays, and/or surgical intervention. The patient elects to proceed with this endoscopic procedure. medical equipment was checked for proper function. Hand hygiene and appropriate measures for infection prevention was taken. After the risks, benefits and alternatives of the procedure were thoroughly explained, Informed consent was verified, confirmed and timeout was successfully executed by the treatment team. A digital exam revealed external hemorrhoids The Pentax [id number] endoscope was introduced through the anus and advanced to the cecum, which was identified by both the appendix and ileocecal valve. The instrument was then slowly withdrawn as the colon was fully examined. COLON FINDINGS: There was severe diverticulosis noted in the sigmoid colon with associated inflammatory changes. No bleeding was noted from the diverticulosis. Retroflexed views revealed internal hemorrhoids and Retroflexed views revealed medium internal hemorrhoids The scope was then completely withdrawn from the patient and the procedure terminated. PROCEDURE WITHDRAWAL TIME:6minutes ADVERSE EVENTS: There were no complications. IMPRESSIONS: 1. There was severe diverticulosis noted in the sigmoid colon 2. Retroflexed views revealed internal hemorrhoids 3. Retroflexed views revealed medium internal hemorrhoids 4. Revealed external hemorrhoids RECOMMENDATIONS: 1. Benefiber 2 tsp daily 2. Continue surveillance 3. Yearly hemoccult 4. High fiber diet 5. No seeds, nuts and popcorn in diet RECALL: Colonoscopy PRN Dawn Og MD eSigned: Dawn Og MD 06/09/2017 1:19 PM cc: PATIENT NAME: Stephanie Sharif MR#: [id number]
[2017-06-09] MEDS ORDERED: METOPROLOL TARTRATE 25 MG TAB PO PRN (13:30)
[2017-06-09] MEDS ORDERED: LACTATED RINGER'S 1000 ML IV PRN (13:30)
[2017-06-09] MEDS ORDERED: SODIUM CHLORID 0.9% 500 ML IV PRN (13:30)
[2017-06-09] MEDS ORDERED: POVIDONE IODINE 5% (ANTISEPSIS KIT) 4 APPLICATIONS EACH NARE PRN (13:30)
[2017-06-09] MEDS ORDERED: CHLORHEXIDINE GLUCONATE 2 % 1 PACK (2 CLOTHS) TOPICAL PRN (13:30)
[2017-06-09] MEDS ORDERED: INSULIN HUMAN REGULAR 1,000 UNITS/10 ML VIAL SQ PRN (13:30)
[2017-06-09] MEDS ORDERED: POTASSIUM CHLORIDE 10 MEQ CONTROLLED RELEASE TAB PO ONE (14:00)
[2017-06-09] MEDS ORDERED: METOLAZONE 5 MG TAB PO ONE (14:00)
--- NOTE | 2017-06-09 17:12 | HHI.PR ---
Subjective Remarks Nursing denies any deterioration since last night. Patient was tolerating 2 L well during her EGD and colonoscopy procedure overall which showed no active sources of bleeding, just diverticulosis, gastritis, and hemorrhoids. Later on in the day however the patient did develop some worsening hypoxia requiring up to 6 L to maintain sats at 96-97%. Patient did get a little bit labored. Chest x-ray was obtained which I independently reviewed showed some mild reaccumulation of fluid bilateral pleural effusions. Objective Vital Signs Date Time Temp Pulse Resp B/P (MAP) Pulse Ox O2 Delivery O2 Flow Rate FiO2 06/09/17 14:00 97.9 64 18 116/55 (75) 95 06/09/17 13:44 67 18 107/51 (69) 93 06/09/17 13:28 97.2 59 18 92/44 (60) 93 06/09/17 12:02 97.8 70 18 146/75 (98) 97 06/09/17 12:02 Nasal Cannula 2 06/09/17 08:00 97.4 82 15 140/73 (95) 88 06/09/17 02:32 96.5 76 20 156/75 91 06/09/17 00:00 97.1 77 18 135/79 (97) 96 06/08/17 23:45 95.6 66 21 142/82 91 06/08/17 23:16 95.9 79 17 116/62 96 06/08/17 22:48 95.9 79 17 116/62 96 06/08/17 21:31 96 1.50 06/08/17 20:00 96.7 72 18 127/71 (89) 95 06/08/17 18:21 96.6 80 18 116/82 95 06/08/17 18:03 96.5 80 16 115/69 95 I/O 06/08/17 06/08/17 06/08/17 06/09/17 06/09/17 06/09/17 07:00 15:00 23:00 07:00 15:00 23:00 Intake Total 420 ml 780 ml 2088 ml 500 ml 1100 ml Output Total 200 ml Balance 220 ml 780 ml 2088 ml 500 ml 1100 ml Intake Oral 120 ml 300 ml IV Total 300 ml 1588 ml 500 ml 1100 ml Packed Cells 400 ml 400 ml Blood Product IV Normal Saline Flush 80 ml 100 ml Output Urine Total 200 ml # Voids 4 6 1 # Bowel Movements 4 6 1 Result Diagram: 06/09/17 1050 06/09/17 1050 Objective Remarks Nontender abdomen, nondistended, positive bowel sounds, lying in bed, no acute distress, sitting up in bed Upon reexamination Patient had slightly decreased breath sounds in bilateral bases with no crackles or Rales heard, on nasal cannula, mild conversive dyspnea A/P Assessment and Plan Acute anemia - Improved after transfusion, no acute sources of bleeding found on EGD and colonoscopy, stable for discharge from GI standpoint Acute hypoxic respiratory failure - Recurred likely due to pulmonary edema and pleural effusions, diuresing with Lasix and metolazone. Suspect the patient may have diastolic heart failure. Abdominal pain - further improved today, continue miralax Transaminitis - most likely from methotrexate since GGT is within normal limits as well as CK from methotrexate since GGT and CK are within normal limits, overall improving with fluids Ruthie's granulomatosis - holding home methotrexate in light of transaminitis Urinary retention - continue home rapaflo Hold home antihypertensives until blood pressure becomes more stable. PT/OT eval due to frail overall appearance. resuming lovenox Fahad Marsh MD Jun 09, 2017 17:12
[2017-06-09] MEDS: FUROSEMIDE 40 MG/4 ML VIAL IV PUSH SCH (17:28)
[2017-06-09] MEDS: cefTRIAXone INJ 1,000 MG in SODIUM CHLORIDE 0.9% INJ 100 ML IV SCH (17:28)
[2017-06-09] MEDS: ALPRAZolam 0.5 MG TAB PO PRN (17:34)
[2017-06-09] MEDS: ENOXAPARIN SODIUM 30 MG/0.3 ML SYRINGE SQ SCH (17:34)
[2017-06-09 18:20] LABS: BILIRUBIN, URINE NEG (NEG); BLOOD, URINE TRACE (NEG); GLUCOSE,URINE NEG (NEG); KETONE, URINE NEG (NEG); NITRITE,URINE NEG (NEG); URINE LEUKOCYTE ESTERASE SMALL (NEG)
[2017-06-09 18:29] LABS: RBC, URINE 0-2 /hpf (0-3); SQUAMOUS EPITHELIAL CELL URINE 0-5 /hpf (0-5); URINE COLOR YELLOW (YELLW/STRAW)
[2017-06-09 18:30] LABS: AMORPHOUS SEDIMENT, URINE FEW
[2017-06-09] MEDS: RESP: ALBUTEROL 2.5 MG/IPRATROPIUM 0.5 MG NEB (SCH) NEB (19:36)
[2017-06-10 00:27] VITALS: BP 122/72; PULSE 80; RESP 16; TEMP 98; O2SAT 96
[2017-06-10] MEDS: metroNIDAZOLE 500 MG INJ 100 ML IV SCH ×2 (00:50→08:30)
[2017-06-10] MEDS ORDERED: methylPREDNISolone SOD SUCC 125 MG/2 ML VIAL IV PUSH SCH (03:00)
[2017-06-10 06:58] LABS: AUTOMATED NEUTROPHIL # 5.1 TH/MM3 (1.8-7.7); BASOPHIL % 0.1 % (0.0-2.0); EOSINOPHIL % 0.1 % (0.0-4.0); HEMATOCRIT 31.2 % (35.0-46.0); HEMOGLOBIN 10.2 GM/DL (11.6-15.3); LYMPH % 6.7 % (9.0-44.0); LYMPHOCYTE # 0.4 TH/MM3 (1.0-4.8); MEAN CELL VOLUME 91.2 FL (80.0-100.0); MEAN CORPUSCULAR HEMOGLOBIN 29.6 PG (27.0-34.0); MEAN CORPUSCULAR HGB CONC 32.5 % (32.0-36.0); MEAN PLATELET VOLUME 7.9 FL (7.0-11.0); MONO % 1.4 % (0.0-8.0); MONOCYTE # 0.1 TH/MM3 (0-0.9); NEUT % 91.7 % (16.0-70.0); PLATELET COUNT 329 TH/MM3 (150-450); RED BLOOD COUNT 3.43 MIL/MM3 (4.00-5.30); RED CELL DISTRIBUTION WIDTH 13.9 % (11.6-17.2); WHITE BLOOD COUNT 5.6 TH/MM3 (4.0-11.0)
[2017-06-10 07:16] LABS: BICARBONATE 26.5 MEQ/L (21.0-32.0); CALCIUM 8.2 MG/DL (8.5-10.1)
[2017-06-10 07:21] LABS: CREATININE 1.2 MG/DL (0.50-1.00)
[2017-06-10 07:50] VITALS: O2SAT 97
[2017-06-10] MEDS: RESP: ALBUTEROL 2.5 MG/IPRATROPIUM 0.5 MG NEB (SCH) NEB ×4 (07:50→19:58)
[2017-06-10 08:00] VITALS: BP 138/75; PULSE 79; RESP 18; TEMP 97.5; O2SAT 96
[2017-06-10] MEDS: POLYETHYLENE GLYCOL 17 GM PKG PO SCH (08:25)
[2017-06-10] MEDS: TAMSULOSIN HCL 0.4 MG CAP PO SCH (08:25)
[2017-06-10] MEDS: ALPRAZolam 0.5 MG TAB PO PRN ×2 (08:25→21:00)
[2017-06-10] MEDS: METOPROLOL TARTRATE 25 MG TAB PO SCH ×2 (08:25→21:02)
[2017-06-10] MEDS: PHENAZOPYRIDINE HCL 100 MG TAB PO SCH (08:26)
[2017-06-10] MEDS: FUROSEMIDE 40 MG/4 ML VIAL IV PUSH SCH ×2 (08:26→17:38)
[2017-06-10 12:00] VITALS: BP 126/66; PULSE 77; RESP 16; TEMP 97.8; O2SAT 95
[2017-06-10] MEDS ORDERED: POTASSIUM CHLORIDE 10 MEQ CONTROLLED RELEASE TAB PO ONE (14:00)
--- NOTE | 2017-06-10 14:33 | HHI.PR ---
Subjective Remarks Nursing does report that the patient was attempted to be titrated down to room air but she was at 84% when that happened. Otherwise no deterioration is overnight. Patient now requiring 2 L. Patient herself says her abdominal pain is gone. Objective Vital Signs Date Time Temp Pulse Resp B/P (MAP) Pulse Ox O2 Delivery O2 Flow Rate FiO2 06/10/17 12:00 97.8 77 16 126/66 (86) 95 06/10/17 08:00 97.5 79 18 138/75 (96) 96 06/10/17 07:50 97 Nasal Cannula 4.00 06/10/17 05:01 06/10/17 00:27 98.0 80 16 122/72 (89) 96 06/09/17 21:39 97.9 79 18 134/67 (89) 97 06/09/17 19:51 97 Nasal Cannula 4.00 06/09/17 16:00 96.7 78 16 177/80 (112) 95 I/O 06/09/17 06/09/17 06/09/17 06/10/17 06/10/17 06/10/17 07:00 15:00 23:00 07:00 15:00 23:00 Intake Total 2088 ml 500 ml 1100 ml 100 ml Balance 2088 ml 500 ml 1100 ml 100 ml IV Total 1588 ml 500 ml 1100 ml 100 ml Packed Cells 400 ml Blood Product IV Normal Saline Flush 100 ml # Voids 1 1 7 # Bowel Movements 1 2 Result Diagram: 06/10/17 0639 06/10/17 0639 Objective Remarks Lying in bed, awake, alert, no acute distress Slightly decreased breath sounds in the bases, clear otherwise Abdomen soft, nontender, nondistended A/P Assessment and Plan Acute hypoxic respiratory failure - Recurred likely due to pulmonary edema and pleural effusions, diuresing with Lasix and metolazone. Suspect the patient may have diastolic heart failure. echo results pending Pleural effusions - Discussed with radiology, joint plan is as follows: We'll diurese the patient for another 24 hours and repeat chest x-ray in the morning and reassess pulse ox. If fluid amount is unchanged or is worse in a.m., we'll consider repeat thoracentesis per radiology's assessment. Otherwise the patient can be discharged with home oxygen. Ordering procalcitonin to see if abx needed upon discharge. minimizing all IVFs w/ meds. hypokalemia - 2/2 diuretic, replace Abdominal pain - likely from rectosigmoiditis, gastritis, and constipation, continue miralax , switching from iv to po flagyl. Transaminitis - most likely from methotrexate since GGT is within normal limits as well as CK from methotrexate since GGT and CK are within normal limits, overall improving with fluids Ruthie's granulomatosis - holding home methotrexate in light of transaminitis Urinary retention - continue home rapaflo Hold home antihypertensives until blood pressure becomes more stable. PT/OT eval due to frail overall appearance. Fahad Ibrahim MD Jun 10, 2017 14:33
[2017-06-10] MEDS: methylPREDNISolone SOD SUCC 125 MG/2 ML VIAL IV PUSH SCH (15:14)
[2017-06-10] MEDS: metroNIDAZOLE 500 MG TAB PO SCH ×2 (15:14→21:00)
[2017-06-10 16:00] VITALS: BP 130/70; PULSE 80; RESP 16; TEMP 98.1; O2SAT 95
[2017-06-10] MEDS: ENOXAPARIN SODIUM 30 MG/0.3 ML SYRINGE SQ SCH (17:39)
[2017-06-10 20:00] VITALS: BP 110/66; PULSE 83; RESP 20; TEMP 97.2; O2SAT 93; O2SAT 96
[2017-06-11] VITALS: BP 116/64; PULSE 75; RESP 20; TEMP 97.9; O2SAT 95
[2017-06-11] MEDS: methylPREDNISolone SOD SUCC 125 MG/2 ML VIAL IV PUSH SCH ×2 (03:45→15:37)
[2017-06-11] MEDS: metroNIDAZOLE 500 MG TAB PO SCH ×3 (05:12→21:13)
[2017-06-11] MEDS: RESP: ALBUTEROL 2.5 MG/IPRATROPIUM 0.5 MG NEB (SCH) NEB ×4 (07:29→21:56)
[2017-06-11 07:30] VITALS: O2SAT 94
[2017-06-11 08:00] VITALS: BP 144/69; PULSE 88; RESP 18; TEMP 97.9; O2SAT 100
[2017-06-11 08:30] LABS: CREATININE 1.2 MG/DL (0.50-1.00)
--- NOTE | 2017-06-11 08:35 | RADRPT ---
EXAM DATE/TIME: 06/11/2017 08:17 [facility] COMPARISON: CHEST PA & LAT, June 09, 2017, 11:23. INDICATIONS : Short of breath, fluid accumulation MEDICAL HISTORY : Chronic obstructive pulmonary disease. cecy granulomatosis r lung SURGICAL HISTORY : Lobectomy. ENCOUNTER: Subsequent ACUITY: 4 - 6 days PAIN SCORE: 0/10 LOCATION: Bilateral chest FINDINGS: P. a lateral view of the chest demonstrates a small right-sided pleural effusion which appears decrea sed in size as compared to the prior exam. Changes which are identified within the right thorax adjac ent to the hilum consistent with partial lobectomy. The lungs are grossly clear. Heart size is normal . Pulmonary vasculature is normal. Evidence of chronic air-trapping is seen on the lateral exam. The bones are diffusely osteopenic. Stable scoliosis. CONCLUSION: Small right-sided pleural effusion which appears slightly decreased in size as compared to the prior exam. The left-sided pleural effusion has resolved. Keturah Nicholas MD on June 11, 2017 at 8:31 Board Certified Radiologist. This report was verified electronically.
[2017-06-11] MEDS ORDERED: POTASSIUM CHLORIDE 10 MEQ CONTROLLED RELEASE TAB PO ONE ×2 (09:00→12:00)
[2017-06-11] MEDS: POLYETHYLENE GLYCOL 17 GM PKG PO SCH (09:00)
[2017-06-11] MEDS: TAMSULOSIN HCL 0.4 MG CAP PO SCH (09:54)
[2017-06-11] MEDS: FUROSEMIDE 40 MG/4 ML VIAL IV PUSH SCH ×2 (09:54→18:00)
--- NOTE | 2017-06-11 09:54 | HHI.DCPOC ---
Discharge Care Plan Diagnosis: (1) Hypokalemia due to loss of potassium (2) Pleural effusion (3) Anemia (4) Renal insufficiency (5) Lung nodule Goals to Promote Your Health * To prevent worsening of your condition and complications * To maintain your health at the optimal level Directions to Meet Your Goals Take your medications as prescribed Follow your dietary instruction Follow activity as directed Keep your appointments as scheduled Take your immunizations and boosters as scheduled If your symptoms worsen call your PCP, if no PCP go to Urgent Care Center or Emergency Room Smoking is Dangerous to Your Health. Avoid second hand smoke Call the 24-hour hour crisis hotline for domestic abuse at Fahad Marsh MD Jun 11, 2017 09:54
[2017-06-11] MEDS: METOPROLOL TARTRATE 25 MG TAB PO SCH ×2 (09:55→21:13)
--- NOTE | 2017-06-11 09:55 | HHI.DS ---
Discharge Summary Admission Date Jun 06, 2017 at 12:49 Discharge Date: Jun 12, 2017 Admitting Diagnosis ANEMIA, RENAL INSUFFICIENCY, ABDOMINAL PAIN (1) Rectosigmoiditis ICD Code: K63.89 - Other specified diseases of intestine (2) Unsteady gait ICD Code: R26.81 - Unsteadiness on feet (3) Lung nodule ICD Code: R91.1 - Solitary pulmonary nodule (4) Chronic respiratory failure with hypoxia ICD Code: J96.11 - Chronic respiratory failure with hypoxia (5) Pleural effusion ICD Code: J90 - Pleural effusion, not elsewhere classified (6) Hypokalemia due to loss of potassium ICD Code: E87.6 - Hypokalemia (7) Renal insufficiency ICD Code: N28.9 - Disorder of kidney and ureter, unspecified Status: Acute Procedures right sided thoracentesis w/ 600 ml drained Brief History - From Admission 86-year-old white female being admitted for acute kidney injury. Patient was in her usual state of health until about 3 days ago when she began experiencing diffuse cramping abdominal pain that did not resolve with Tylenol. She says the cramping is diffuse and in the lower part of her abdomen. She denies any burning with urination. Denies having any nausea vomiting but does report having a substantially decreased by mouth intake. Feels weaker overall. Denies any tara shortness of breath or chest pain. Patient does report that she has difficulty with constipation, has a decent bowel movement about every 2 days. In the emergency room she was noted to have acutely elevated LFTs as well as a substantially acute kidney injury. A CT abdomen was obtained which radiology read is demonstrating proctitis and some stranding. There is also noted to be a right-sided pleural effusion of mild to moderate size. Patient was noted to be saturating down to 85% on room air and would, well with 2 L. She denies wearing oxygen at home. CBC/BMP: 06/10/17 0639 06/11/17 0749 Significant Findings Laboratory Tests Test 06/08/17 10:20 06/09/17 10:50 06/09/17 18:18 06/10/17 06:39 Iron Level 48 MCG/DL (50-170) Total Iron Binding Capacity 239 MCG/DL (250-450) Red Blood Count 3.86 MIL/MM3 (4.00-5.30) 3.43 MIL/MM3 (4.00-5.30) Hemoglobin 11.4 GM/DL (11.6-15.3) 10.2 GM/DL (11.6-15.3) Neutrophils (%) (Auto) 80.9 % (16.0-70.0) 91.7 % (16.0-70.0) Lymphocytes # (Auto) 0.7 TH/MM3 (1.0-4.8) 0.4 TH/MM3 (1.0-4.8) Blood Urea Nitrogen 33 MG/DL (7-18) 34 MG/DL (7-18) Creatinine 1.20 MG/DL (0.50-1.00) 1.20 MG/DL (0.50-1.00) Potassium Level 3.3 MEQ/L (3.5-5.1) 3.0 MEQ/L (3.5-5.1) Estimat Glomerular Filtration Rate 42 ML/MIN (>89) 42 ML/MIN (>89) Urine Leukocyte Esterase SMALL (NEG) Hematocrit 31.2 % (35.0-46.0) Lymphocytes (%) (Auto) 6.7 % (9.0-44.0) Random Glucose 153 MG/DL (74-106) Calcium Level 8.2 MG/DL (8.5-10.1) Test 06/10/17 14:42 06/11/17 07:49 Procalcitonin 0.12 ng/mL (0.00-0.08) Blood Urea Nitrogen 43 MG/DL (7-18) Creatinine 1.20 MG/DL (0.50-1.00) Random Glucose 140 MG/DL (74-106) Calcium Level 8.0 MG/DL (8.5-10.1) Potassium Level 2.6 MEQ/L (3.5-5.1) Chloride Level 96 MEQ/L (98-107) Estimat Glomerular Filtration Rate 42 ML/MIN (>89) Magnesium Level 1.2 MG/DL (1.5-2.5) PE at Discharge Lungs are clear bilaterally, unlabored breathing On nasal cannula at 2 L Abdomen nondistended Hospital Course Patient was admitted, started on IV fluids as well as antibiotics for acute kidney injury and rectosigmoiditis secondary to constipation, respectively. The patient's renal function abdominal pain has significantly improved. Due to a drop in her hemoglobin she underwent an EGD or colonoscopy that showed some esophagitis, gastritis, and diverticulosis with no active sources of bleeding. Patient eventually did have good bowel movements with no further abdominal pain. Patient had also undergone a right-sided thoracentesis for a pleural effusion that was evident. 600 MLS were drained however the patient still required oxygen so she was therefore started on diuretics. This led to some moderate to severely low potassium levels which were replenished appropriately and her diuretics were reduced and dosing. Patient's CT that was initially obtained upon admission showed an incidental 4 mm nodule on the left lung. Patient daughter were counseled extensively that this was something that could be followed up as an outpatient over time by the primary care provider. Patient did undergo a walk test and warranted 2 L of oxygen therapy upon discharge. Patient has met maximal benefit from hospitalization and is currently stable for discharge for ROXANA w/ home PT. Pt Condition on Discharge: Stable Discharge Disposition: ACLF/PRISON Discharge Time: > 30 minutes Discharge Instructions Follow up Referrals: Gastroenterology - 2 Weeks PCP Follow-up - 1 Week New Medications: Furosemide (Furosemide) 20 Mg Tab 20 MG PO DAILY PRN for pulmonary edema, #30 TAB 0 Refills Magnesium Oxide (Magnesium Oxide) 250 Mg Tab 250 MG PO DAILY for low magnesium, #30 TAB 0 Refills Oxygen (O2) (Oxygen (O2)) Device LITER DELIA.CANULA CONTINUOUS for Prevent Hypoxemia, #2 Oxygen Concentrator Portable Gaseous 2 L/min via Nasal Canula Continuous For 99 months Polyethylene Glycol 3350 Powder (Miralax Powder) 17 Gm Powd 17 GM PO DAILY for Constipation, #1 CAN 0 Refills Mix and dissolve one measuring cap-ful (17 grams) in water or juice. Potassium Bicarbonate Effervescent (Klor-Con EF) 25 Meq Tab 50 MEQ PO DAILY for Electrolyte Replacement, #30 TAB 0 Refills Walker with Front Wheels (Walker with Front Wheels) 1 Mis Mis EA .XX DIRECTED, #1 0 Refills Continued Medications: Albuterol 18 GM Inh (Ventolin Hfa 18 GM Inh) 90 Mcg/Act Aer 2 PUFF INH Q4-6H PRN for SHORTNESS OF BREATH, #1 INHALER 0 Refills Alprazolam (Xanax) 0.5 Mg Tab 0.5 MG PO BID PRN for ANXIETY, TAB 0 Refills Amlodipine (Amlodipine) 5 Mg Tab 5 MG PO DAILY for Blood Pressure Management, #30 TAB 0 Refills Folic Acid (Folic Acid) 0.8 Mg Tab 1 MG PO M,T,W,F,SA,BRAGG for Nutritional Supplement, TAB 0 Refills Methotrexate (Methotrexate) 2.5 Mg Tab 7.5 MG PO Q7D, TAB 0 Refills Metoprolol Tartrate (Metoprolol Tartrate) 25 Mg Tab 12.5 MG PO BID, #60 TAB 0 Refills Olmesartan (Olmesartan) 40 Mg Tab 40 MG PO DAILY for Blood Pressure Management, #30 TAB 0 Refills Phenazopyridine (Pyridium) 100 Mg Tab 100 MG PO DAILY for Dysuria, TAB 0 Refills Silodosin (Rapaflo) 8 Mg Cap 8 MG PO DAILY for Manage Prostate Problems, #30 CAP 0 Refills Fahad Marsh MD Jun 11, 2017 09:55
[2017-06-11] MEDS: PHENAZOPYRIDINE HCL 100 MG TAB PO SCH (09:56)
[2017-06-11] MEDS: ALPRAZolam 0.5 MG TAB PO PRN ×2 (10:06→21:13)
[2017-06-11] MEDS ORDERED: MAGNESIUM OXIDE 400 MG TAB PO ONE (11:00)
[2017-06-11 13:14] LABS: AUTOMATED NEUTROPHIL # 13.1 TH/MM3 (1.8-7.7); BASOPHIL % 0.1 % (0.0-2.0); HEMATOCRIT 32.2 % (35.0-46.0); HEMOGLOBIN 10.2 GM/DL (11.6-15.3); LYMPH % 2.7 % (9.0-44.0); LYMPHOCYTE # 0.4 TH/MM3 (1.0-4.8); MEAN CELL VOLUME 92.4 FL (80.0-100.0); MEAN CORPUSCULAR HEMOGLOBIN 29.2 PG (27.0-34.0); MEAN CORPUSCULAR HGB CONC 31.6 % (32.0-36.0); MEAN PLATELET VOLUME 8.3 FL (7.0-11.0); MONO % 8.5 % (0.0-8.0); MONOCYTE # 1.3 TH/MM3 (0-0.9); NEUT % 88.7 % (16.0-70.0); PLATELET COUNT 359 TH/MM3 (150-450); RED BLOOD COUNT 3.49 MIL/MM3 (4.00-5.30); WHITE BLOOD COUNT 14.8 TH/MM3 (4.0-11.0)
[2017-06-11] MEDS ORDERED: POTASSIUM CHLORIDE 20 MEQ PWD PACKET PO ONE (14:00)
--- NOTE | 2017-06-11 14:32 | HHI.PR ---
Subjective Remarks Nursing does not reporting any deterioration overnight. Patient claims she saw asked stools, however this was not reported by nursing. Daytime nurse says his stools just appear naturally dark, not black or tarry. Patient having no abdominal pain today. Objective Vital Signs Date Time Temp Pulse Resp B/P (MAP) Pulse Ox O2 Delivery O2 Flow Rate FiO2 06/11/17 08:00 97.9 88 18 144/69 (94) 100 06/11/17 07:30 94 Nasal Cannula 2.00 06/11/17 00:00 97.9 75 20 116/64 (81) 95 06/10/17 20:00 97.2 83 20 110/66 (81) 96 06/10/17 20:00 93 Nasal Cannula 2.00 06/10/17 16:00 98.1 80 16 130/70 (90) 95 I/O 06/10/17 06/10/17 06/10/17 06/11/17 06/11/17 06/11/17 07:00 15:00 23:00 07:00 15:00 23:00 Intake Total 100 ml 680 ml 2880 ml Balance 100 ml 680 ml 2880 ml Intake Oral 580 ml 2880 ml IV Total 100 ml 100 ml # Voids 7 2 4 1 # Bowel Movements 2 1 4 0 Result Diagram: 06/11/17 1232 06/11/17 1232 Objective Remarks Lying in bed, awake, alert, no acute distress No acute distress, clear lungs bilaterally Abdomen soft, nontender, nondistended A/P Assessment and Plan Acute hypoxic respiratory failure - Needs home oxygen at this point has she passed home 02 walk test Pleural effusions - Improved pleural effusions per size on CXR - We'll continue diuresis instead of proceeding with thoracentesis. Echocardiogram performed, awaiting report hypokalemia - Still persistent, will replace aggressively orally, we'll hold off on IV replacement given the patient's very frail respiratory fluid balance status. 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 PT/OT eval due to frail overall appearance. Fahad Ibrahim MD Jun 11, 2017 14:32
[2017-06-11 16:00] VITALS: BP 134/79; PULSE 88; RESP 18; TEMP 97.9; O2SAT 96
[2017-06-11] MEDS ORDERED: MAGNESIUM SULFATE 1 GM/2 ML VIAL IM ONE (16:00)
[2017-06-11] MEDS: ENOXAPARIN SODIUM 30 MG/0.3 ML SYRINGE SQ SCH (18:24)
[2017-06-11] MEDS ORDERED: POTASSIUM CHLORIDE 25 MEQ EFFERVESCENT TAB PO ONE (20:00)
[2017-06-11 21:24] VITALS: BP 165/80; PULSE 91; RESP 18; TEMP 97.9; O2SAT 94
[2017-06-11 21:58] VITALS: O2SAT 96
[2017-06-12 00:34] VITALS: BP 140/72; PULSE 88; RESP 16; TEMP 98.1; O2SAT 95
[2017-06-12] MEDS: methylPREDNISolone SOD SUCC 125 MG/2 ML VIAL IV PUSH SCH ×2 (03:04→14:38)
[2017-06-12] MEDS: metroNIDAZOLE 500 MG TAB PO SCH ×2 (06:08→14:36)
[2017-06-12 06:37] LABS: BICARBONATE 34.7 MEQ/L (21.0-32.0); CALCIUM 8.3 MG/DL (8.5-10.1)
[2017-06-12 06:41] LABS: CREATININE 0.92 MG/DL (0.50-1.00)
[2017-06-12] MEDS: RESP: ALBUTEROL 2.5 MG/IPRATROPIUM 0.5 MG NEB (SCH) NEB ×3 (07:25→15:18)
[2017-06-12 07:27] VITALS: O2SAT 95
[2017-06-12 08:00] VITALS: BP 152/81; PULSE 88; RESP 24; TEMP 96; O2SAT 93
--- NOTE | 2017-06-12 08:23 | ECHRPT ---
Indication: HEART FAILURE CONCLUSIONS Normal left ventricular size. Wall thickness is normal. The left ventricular systolic function is hyperdynamic with an estimated ejection fraction in the ra nge of 65- 70%. The right atrial size is aoss-od-lconzrmgim dilated. Mild to moderate mitral valve regurgitation. Aortic valve sclerosis is present. There is trace tricuspid valve regurgitation. A right sided pleural effusion is present. BP: 126 / 66 HR: 77 Rhythm: Sinus MEASUREMENTS (Male / Female) Normal Values Technical Quality:Fair 2D ECHO LV Diastolic Diameter PLAX 4.4 cm 4.2 - 5.9 / 3.9 - 5.3 cm LV Systolic Diameter PLAX 2.9 cm IVS Diastolic Thickness 0.8 cm 0.6 - 1.0 / 0.6 - 0.9 cm LVPW Diastolic Thickness 0.8 cm 0.6 - 1.0 / 0.6 - 0.9 cm LV Relative Wall Thickness 0.4 RV Internal Dim ED PLAX 2.5 cm LVOT Diameter 1.7 cm Aortic Root Diameter 2.9 cm LA Systolic Diameter LX 2.6 cm 3.0 - 4.0 / 2.7 - 3.8 cm M-MODE AV Cusp Separation MM 1.9 cm DOPPLER AV Peak Velocity 200.0 cm/s AV Peak Gradient 16.0 mmHg AV Mean Gradient 8.0 mmHg AV Velocity Time Integral 38.8 cm LVOT Peak Velocity 140.0 cm/s LVOT Peak Gradient 7.8 mmHg LVOT Velocity Time Integral 23.8 cm AV Area Cont Eq vti 1.4 cm AV Area Cont Eq pk 1.6 cm Mitral E Point Velocity 108.0 cm/s Mitral A Point Velocity 114.0 cm/s Mitral E to A Ratio 0.9 LV E' Lateral Velocity 6.8 cm/s Mitral E to LV E' Lateral Ratio 15.8 LV E' Septal Velocity 5.2 cm/s Mitral E to LV E' Septal Ratio 20.9 TR Peak Velocity 162.0 cm/s TR Peak Gradient 10.5 mmHg PV Peak Velocity 91.0 cm/s PV Peak Gradient 3.3 mmHg FINDINGS LEFT VENTRICLE Normal left ventricular size. Wall thickness is normal. The left ventricular systolic function is hyperdynamic with an estimated ejection fraction in the ra nge of 65- 70%. RIGHT VENTRICLE Normal right ventricular size and systolic function. LEFT ATRIUM The left atrial size is normal. RIGHT ATRIUM The right atrial size is pgzd-hs-ayetowydle dilated. ATRIAL SEPTUM No atrial level shunt is demonstrated by color flow Doppler interrogation. AORTA The aortic root and proximal ascending aorta are normal in size on limited imaging. MITRAL VALVE Mild to moderate mitral valve regurgitation. AORTIC VALVE Aortic valve sclerosis is present. TRICUSPID VALVE There is trace tricuspid valve regurgitation. PULMONARY VALVE No pulmonary valve regurgitation or stenosis. VESSELS The inferior vena cava is normal in size. PERICARDIUM A right sided pleural effusion is present. No pericardial effusion. David Galan MD, FACC (Electronically Signed) Final Date:12 June 2017 08:21
[2017-06-12] MEDS: POLYETHYLENE GLYCOL 17 GM PKG PO SCH (09:00)
[2017-06-12] MEDS: TAMSULOSIN HCL 0.4 MG CAP PO SCH (10:14)
[2017-06-12] MEDS: METOPROLOL TARTRATE 25 MG TAB PO SCH (10:15)
[2017-06-12] MEDS: PHENAZOPYRIDINE HCL 100 MG TAB PO SCH (10:15)
[2017-06-12] MEDS: ALPRAZolam 0.5 MG TAB PO PRN (10:21)
[2017-06-12 12:00] VITALS: BP 135/74; PULSE 77; RESP 20; TEMP 96.2; O2SAT 93
[2017-06-12] MEDS ORDERED: LIDOCAINE HCL 1% PF 5 ML SYRINGE OTHER ONE (12:00)
[2017-06-12] MEDS ORDERED: PROPOFOL 200 MG/20 ML AMP IV ONE (12:00)
[2017-06-12] MEDS ORDERED: POTASSIUM CHLORIDE 20 MEQ PWD PACKET PO SCH (13:00)
[2017-06-12] MEDS ORDERED: OXYGENDME NAS.CANULA (13:06)
[2017-06-12] MEDS ORDERED: MAGN250T11 PO (13:53)
[2017-06-12] MEDS ORDERED: MIRA3350 PO (13:55)
[2017-06-12] MEDS ORDERED: KLOR25TA2 PO (13:55)
[2017-06-12] MEDS ORDERED: FURO20TA PO (14:17)
[2017-06-12] MEDS ORDERED: WALKER WHEELS/F1 MIS (14:18)
[2017-06-12 16:00] VITALS: BP 142/79; PULSE 89; RESP 20; TEMP 96.9; O2SAT 92
== END 2017-06-12 19:21 | DRG 682 ==
LOC: PHED 10:23 → PHEDA 12:49 → PH3B 15:21
PROVIDERS: ADMIT Hospitalist; ATTEND Hospitalist
PROC: 0W993ZZ Drainage of Right Pleural Cavity, Percutaneous Approach (ICD-10-PCS; principal; 2017-06-07)
PROC: 30233N1 Transfusion of Nonautologous Red Blood Cells into Peripheral Vein, Percutaneous Approach (ICD-10-PCS; 2017-06-08)
PROC: 0DJD8ZZ Inspection of Lower Intestinal Tract, Via Natural or Artificial Opening Endoscopic (ICD-10-PCS; 2017-06-09)
PROC: 0DB38ZX Excision of Lower Esophagus, Via Natural or Artificial Opening Endoscopic, Diagnostic (ICD-10-PCS; 2017-06-09)
DX: N17.9 Acute kidney failure, unspecified (principal); J96.21 Acute and chronic respiratory failure with hypoxia; J90 Pleural effusion, not elsewhere classified; M31.30 Wegener's granulomatosis without renal involvement; E86.0 Dehydration; J44.9 Chronic obstructive pulmonary disease, unspecified; R71.0 Precipitous drop in hematocrit; D64.9 Anemia, unspecified; K59.00 Constipation, unspecified; K57.30 Diverticulosis of large intestine without perforation or abscess without bleeding; K64.8 Other hemorrhoids; K20.9 Esophagitis, unspecified; K29.70 Gastritis, unspecified, without bleeding; I10 Essential (primary) hypertension; R91.1 Solitary pulmonary nodule; R74.0 Nonspecific elevation of levels of transaminase and lactic acid dehydrogenase [LDH]; T45.1X5A Adverse effect of antineoplastic and immunosuppressive drugs, initial encounter; R33.9 Retention of urine, unspecified; E87.6 Hypokalemia; R26.81 Unsteadiness on feet; Z90.2 Acquired absence of lung [part of]; Z87.891 Personal history of nicotine dependence
CPT/HCPCS: 32555; 36430; 51702; 71045; 71046; 74176; 80048; 80053; 81001; 82272; 82550; 82945; 82977; 83540; 83550; 83615; 83690; 83735; 83880; 83986; 84132; 84145; 84484; 85025; 85610; 86077; 86850; 86870; 86900; 86901; 86920; 86922; 87015; 87070; 87086; 87116; 87205; 87206; 88112; 88305; 89051; 93005; 93306; 94618; 94640; 94664; 96365; C1729; J0696; J1650; J1940; J2930; J3475; J3480; J7050; P9016

== ENCOUNTER 2017-06-21 12:53 | Inpatient (IN) | payer MEDICARE, BC ==
[~2017-06-21] VITALS: Ht 149.9 cm; Wt 45.6 kg
[2017-06-21] VITALS (9 sets, daily range): BP systolic 100–114; BP diastolic 51–59; PULSE 82–95; RESP 12–20; TEMP 97.9–99.3; O2SAT 92–98
[~2017-06-21 12:53] MED LIST changes: +FURO20TA PO; +KLOR25TA2 PO; +MAGN250T11 PO; +MIRA3350 PO; +OXYGENDME NAS.CANULA; -PANT40TA3 PO; +WALKER WHEELS/F1 MIS
--- NOTE | 2017-06-21 14:30 | PD ---
HPI Chief Complaint: GI Complaint Time Seen by Provider: 13:48 Travel History International Travel<30 days: No Contact w/Intl Traveler<30days: No Traveled to known affect area: No History of Present Illness HPI 86 y/o female presents by ambulance for continued abdominal cramping and diarrhea since recently discharged from the hospital. She states that she was discharged from the hospital she also had a trip and fall and injured her left upper abdomen. She states that she is having no other complaints at this time. History is supplemented by the ambulance team as patient does have dementia and is going from an assisted living facility. She does not recall her medications. medication list was provided. 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) Thyroid Disease: No Menopausal: Yes : 3 Para: 3 Past Surgical History Abdominal Surgery: Yes ((3)C-SECTIONS, HYSTERECTOMY) Section: Yes (3C-SECTIONS) Cholecystectomy: Yes Gynecologic Surgery: Yes Hysterectomy: Yes Thoracic Surgery: Yes (RIGHT LOWER LOBECTOMY ) Social History Alcohol Use: No Tobacco Use: No (QUIT 1965 SMOKED 1 PPD) Substance Use: No Allergies-Medications (Allergen,Severity, Reaction): Coded Allergies: aspirin (Unverified Adverse Reaction, Unknown, GI UPSET, 06/06/17) pt states does not have a allergy to this medication Reported Meds & Prescriptions Reported Meds & Active Scripts Active Walker with Front Wheels (Device) 1 Mis Mis Ea .XX DIRECTED Furosemide 20 Mg Tab 20 Mg PO DAILY PRN Miralax Powder (Polyethylene Glycol 3350 Powder) 17 Gm Powd 17 Gm PO DAILY Mix and dissolve one measuring cap-ful (17 grams) in water or juice. Klor-Con EF (Potassium Bicarbonate) 25 Meq Tab 50 Meq PO DAILY Magnesium Oxide 250 Mg Tab 250 Mg PO DAILY Oxygen (O2) Device Liter DELIA.CANULA CONTINUOUS Oxygen Concentrator Portable Gaseous 2 L/min via Nasal Canula Continuous For 99 months Reported Ventolin Hfa 18 GM Inh (Albuterol Sulfate) 90 Mcg/Act Aer 2 Puff INH Q4-6H PRN Pyridium (Phenazopyridine HCl) 100 Mg Tab 100 Mg PO DAILY Rapaflo (Silodosin) 8 Mg Cap 8 Mg PO DAILY Folic Acid 0.8 Mg Tab 1 Mg PO M,T,W,F,SA,BRAGG Olmesartan 40 Mg Tab 40 Mg PO DAILY Methotrexate 2.5 Mg Tab 7.5 Mg PO Q7D Metoprolol Tartrate 25 Mg Tab 12.5 Mg PO BID Amlodipine (Amlodipine Besylate) 5 Mg Tab 5 Mg PO DAILY Xanax (Alprazolam) 0.5 Mg Tab 0.5 Mg PO BID PRN Review of Systems Except as stated in HPI: all other systems reviewed are Neg Physical Exam Narrative GENERAL: 86-year-old female who appears in no apparent distress SKIN: Focused skin assessment warm/dry. HEAD: Atraumatic. Normocephalic. EYES: Pupils equal and round. No scleral icterus. No injection or drainage. ENT: No nasal bleeding or discharge. Mucous membranes pink and moist. NECK: Trachea midline. No JVD. CARDIOVASCULAR: Regular rate and rhythm. RESPIRATORY: No accessory muscle use. No increased effort GASTROINTESTINAL: Abdomen soft, tender left upper quadrant, nondistended. MUSCULOSKELETAL: No obvious deformities. No clubbing. No cyanosis. No edema. NEUROLOGICAL: Awake and alert. Motor grossly within normal limits. Normal speech. PSYCHIATRIC: Appropriate mood and affect; insight and judgment normal. Data Data Last Documented VS Vital Signs Date Time Temp Pulse Resp B/P (MAP) Pulse Ox O2 Delivery O2 Flow Rate FiO2 06/21/17 17:45 87 16 114/59 (77) 97 Nasal Cannula 2.00 06/21/17 13:13 99.3 Orders Orders Complete Blood Count With Diff (06/21/17 13:58) Comprehensive Metabolic Panel (06/21/17 13:58) Urinalysis - C+S If Indicated (06/21/17 13:58) Lipase (06/21/17 13:58) Ct Abd/Pel W Iv Contrast(Rout) (06/21/17 ) Iv Access Insert/Monitor (06/21/17 13:58) Oximetry (06/21/17 13:58) Chest, Single Ap (06/21/17 ) Cath For Specimen (06/21/17 15:12) Lactic Acid Sepsis Protocol (06/21/17 15:12) Blood Culture (06/21/17 15:12) Sodium Chlorid 0.9% 500 Ml Inj (Ns 500 M (06/21/17 15:15) Vancomycin Inj (Vancomycin Inj) (06/21/17 15:12) Piperacil-Tazo 4.5 Gm Premix (Zosyn 4.5 (06/21/17 15:12) Iohexol 350 Inj (Omnipaque 350 Inj) (06/21/17 16:19) C Diff Toxin Pcr (06/21/17 16:34) Sodium Chlorid 0.9% 500 Ml Inj (Ns 500 M (06/21/17 17:00) Urine Culture (06/21/17 16:46) Admit Order (Ed Use Only) (06/21/17 18:12) Labs Laboratory Tests Test 06/21/17 14:35 06/21/17 15:50 06/21/17 16:46 White Blood Count 36.3 TH/MM3 Red Blood Count 3.60 MIL/MM3 Hemoglobin 10.8 GM/DL Hematocrit 33.2 % Mean Corpuscular Volume 92.3 FL Mean Corpuscular Hemoglobin 30.0 PG Mean Corpuscular Hemoglobin Concent 32.5 % Red Cell Distribution Width 13.8 % Platelet Count 359 TH/MM3 Mean Platelet Volume 8.1 FL Neutrophils (%) (Auto) 87.0 % Lymphocytes (%) (Auto) 1.9 % Monocytes (%) (Auto) 8.5 % Eosinophils (%) (Auto) 0.4 % Basophils (%) (Auto) 2.2 % Neutrophils # (Auto) 31.6 TH/MM3 Lymphocytes # (Auto) 0.7 TH/MM3 Monocytes # (Auto) 3.1 TH/MM3 Eosinophils # (Auto) 0.1 TH/MM3 Basophils # (Auto) 0.8 TH/MM3 CBC Comment AUTO DIFF Differential Total Cells Counted 100 Neutrophils % (Manual) 81 % Band Neutrophils % 6 % Lymphocytes % 3 % Monocytes % 9 % Eosinophils % 1 % Neutrophils # (Manual) 31.6 TH/MM3 Differential Comment FINAL DIFF MANUAL Blood Urea Nitrogen 13 MG/DL Creatinine 0.66 MG/DL Random Glucose 89 MG/DL Total Protein 6.5 GM/DL Albumin 3.0 GM/DL Calcium Level 7.9 MG/DL Alkaline Phosphatase 141 U/L Aspartate Amino Transf (AST/SGOT) 21 U/L Alanine Aminotransferase (ALT/SGPT) 32 U/L Total Bilirubin 1.0 MG/DL Sodium Level 134 MEQ/L Potassium Level 3.6 MEQ/L Chloride Level 99 MEQ/L Carbon Dioxide Level 29.4 MEQ/L Anion Gap 6 MEQ/L Estimat Glomerular Filtration Rate 85 ML/MIN Lipase 109 U/L Lactic Acid Level 1.1 mmol/L Urine Collection Type CATH Urine Color ORANGE Urine Turbidity CLEAR Urine pH 5.5 Urine Specific [place] 1.018 Urine Protein 100 mg/dL Urine Glucose (UA) 100 mg/dL Urine Ketones TRACE mg/dL Urine Occult Blood NEG Urine Nitrite POS Urine Bilirubin NEG Urine Leukocyte Esterase TRACE Urine WBC 3-5 /hpf Urine White Blood Cell Casts 0-2 /lpf Urine Yeast (Budding) MOD Microscopic Urinalysis Comment CULTURE INDICATED MDM Medical Decision Making Medical Screen Exam Complete: Yes Emergency Medical Condition: Yes Medical Record Reviewed: Yes (pmh confirmed) Interpretation(s) CBC & BMP Diagram 06/21/17 14:35 Total Protein 6.5, Albumin 3.0 L, Calcium Level 7.9 L, Alkaline Phosphatase 141 H, Aspartate Amino Transf (AST/SGOT) 21, Alanine Aminotransferase (ALT/SGPT) 32 , Total Bilirubin 1.0 Last 24 hours Impressions Chest X-Ray 06/21/17 0000 Signed Impressions: Service Date/Time: Wednesday, June 21, 2017 14:11 - CONCLUSION: 1. Small to moderate right pleural effusion is stable. 2. Scattered atelectatic changes are noted and are stable. 3. Cardiomegaly. 4. Degenerative changes and scoliosis of the thoracolumbar spine. Alfredo Cook MD Abdomen/Pelvis CT 06/21/17 0000 Signed Impressions: Service Date/Time: Wednesday, June 21, 2017 16:15 - CONCLUSION: Diverticuli sigmoid colon without diverticulitis. Blaine Stephens MD FACR ua with uti Differential Diagnosis Fracture, strain, pneumothorax, intra-abdominal injury Narrative Course We will check blood work, imaging and reevaluate Given elevated white blood cell count blood culture and lactate added on with broad-spectrum coverage, will await further testing Workup shows UTI with signs of sepsis. Her lactate is normal and she has no signs of hypotension. Will admit to the hospital for further care. No emergent finding on imaging noted Sepsis Criteria SIRS Criteria (2 or more): Heart rate over 90, WBC > 70583, < 4000 or > 10% bands Sepsis Criteria (SIRS+source): Infect source susp/known Criteria Outcome: Meets sepsis criteria Physician Communication Physician Communication dr rutledge agrees to admit Diagnosis Primary Impression: Sepsis Qualified Codes: A41.9 - Sepsis, unspecified organism Additional Impressions: UTI (urinary tract infection) Qualified Codes: N39.0 - Urinary tract infection, site not specified Fall Qualified Codes: W19.XXXA - Unspecified fall, initial encounter Abdominal pain Qualified Codes: R10.9 - Unspecified abdominal pain Diarrhea Qualified Codes: R19.7 - Diarrhea, unspecified Admitting Information Admitting Physician Requests: Admit Sol Solis MD Jun 21, 2017 14:30
[2017-06-21 14:43] LABS: AUTOMATED NEUTROPHIL # 31.6 TH/MM3 (1.8-7.7); BASOPHIL # 0.8 TH/MM3 (0-0.2); BASOPHIL % 2.2 % (0.0-2.0); EOSINOPHIL # 0.1 TH/MM3 (0-0.4); EOSINOPHIL % 0.4 % (0.0-4.0); HEMATOCRIT 33.2 % (35.0-46.0); HEMOGLOBIN 10.8 GM/DL (11.6-15.3); LYMPH % 1.9 % (9.0-44.0); LYMPHOCYTE # 0.7 TH/MM3 (1.0-4.8); MEAN CELL VOLUME 92.3 FL (80.0-100.0); MEAN CORPUSCULAR HGB CONC 32.5 % (32.0-36.0); MEAN PLATELET VOLUME 8.1 FL (7.0-11.0); MONO % 8.5 % (0.0-8.0); MONOCYTE # 3.1 TH/MM3 (0-0.9); PLATELET COUNT 359 TH/MM3 (150-450); RED CELL DISTRIBUTION WIDTH 13.8 % (11.6-17.2); WHITE BLOOD COUNT 36.3 TH/MM3 (4.0-11.0)
[2017-06-21 14:50] LABS: CHLORIDE 99 MEQ/L (98-107); SODIUM (NA) 134 MEQ/L (136-145)
--- NOTE | 2017-06-21 14:51 | RADRPT ---
EXAM DATE/TIME: 06/21/2017 14:11 [facility] COMPARISON: CHEST SINGLE AP, June 06, 2017, 11:40. INDICATIONS : Syncopal episode. Epigastric pain. Diarrhea. MEDICAL HISTORY : Chronic obstructive pulmonary disease. Hypertension SURGICAL HISTORY : section. Lobectomy. Hysterectomy. ENCOUNTER: Initial ACUITY: 1 day PAIN SCORE: 0/10 LOCATION: chest FINDINGS: Small to moderate right pleural effusion is noted and is unchanged compared to the previous examinati on. Cardiomegaly is noted. Degenerative changes and scoliosis of the thoraco-lumbar spine are unchang ed. Discoid atelectasis is noted within the right mid lung field and left lung base. CONCLUSION: 1. Small to moderate right pleural effusion is stable. 2. Scattered atelectatic changes are noted and are stable. 3. Cardiomegaly. 4. Degenerative changes and scoliosis of the thoracolumbar spine. Alfredo Cook MD on June 21, 2017 at 14:46 Board Certified Radiologist. This report was verified electronically.
[2017-06-21 14:53] LABS: CALCIUM 7.9 MG/DL (8.5-10.1)
[2017-06-21 14:54] LABS: BICARBONATE 29.4 MEQ/L (21.0-32.0); BLOOD UREA NITROGEN 13 MG/DL (7-18); GLUCOSE,RANDOM 89 MG/DL (74-106)
[2017-06-21 14:57] LABS: ALT (GPT) 32 U/L (10-53); AST (GOT) 21 U/L (15-37); CREATININE 0.66 MG/DL (0.50-1.00); GLOMERULAR FILTRATION RATE 85 ML/MIN (>89)
[2017-06-21 14:59] LABS: TOTAL PROTEIN 6.5 GM/DL (6.4-8.2)
[2017-06-21 15:00] LABS: ALKALINE PHOSPHATASE 141 U/L (45-117)
[2017-06-21] MEDS ORDERED: VANCOMYCIN INJ 1,000 MG in SODIUM CHLOR 0.9% 250 ML INJ 250 ML IV STA (15:12)
[2017-06-21] MEDS ORDERED: PIPERACIL-TAZO 4.5 GM PREMIX 100 ML IV STA (15:12)
[2017-06-21] MEDS ORDERED: SODIUM CHLORID 0.9% 500 ML INJ 500 ML IV ONE ×2 (15:15→17:00)
[2017-06-21 15:21] LABS: BANDS 6 % (0-6); LYMPHOCYTES 3 % (9-44); MONOCYTES 9 % (0-8); NEUTROPHIL # MANUAL DIFF 31.6 TH/MM3 (1.8-7.7); POLYS (SEG NEUTROPHILS) 81 % (16-70)
[2017-06-21] MEDS ORDERED: IOHEXOL 350 MG/ML 10 ML VIAL (for RAD DIAG) IVCONTRAST ONE (16:19)
--- NOTE | 2017-06-21 16:32 | RADRPT ---
EXAM DATE/TIME: 06/21/2017 16:15 [facility] COMPARISON: No previous studies available for comparison. INDICATIONS : Abdominal pain and diarrhea. IV CONTRAST: 80 cc Omnipaque 350 (iohexol) IV ORAL CONTRAST: No oral contrast ingested. RADIATION DOSE: 5.18 CTDIvol (mGy) MEDICAL HISTORY : Chronic obstructive pulmonary disease. Hypertension. SURGICAL HISTORY : Hysterectomy. Lobectomy. section.Cholecystectomy. ENCOUNTER: Initial ACUITY: 1 day PAIN SCALE: 5/10 LOCATION: Abdomen TECHNIQUE: Volumetric scanning of the abdomen and pelvis was performed. Using automated exposure control and ad justment of the mA and/or kV according to patient size, radiation dose was kept as low as reasonably achievable to obtain optimal diagnostic quality images. DICOM format image data is available electro nically for review and comparison. FINDINGS: There is enlarged right pleural effusion. The left lung base is clear. Liver is small. Spleen is unremarkable. Pancreas appears normal. Small bilateral renal cyst There is no free air. There is no abscess. Diverticuli are present in the sigmoid colon. Assess fo r diverticulitis. Review of bone was visible and degenerative changes due to scoliosis.. CONCLUSION: Diverticuli sigmoid colon without diverticulitis. Blaine Stephens MD FACR on June 21, 2017 at 16:28 Board Certified Radiologist. This report was verified electronically.
[2017-06-21 17:03] LABS: BLOOD, URINE NEG (NEG); GLUCOSE,URINE 100 mg/dL (NEG); KETONE, URINE TRACE mg/dL (NEG); NITRITE,URINE POS (NEG); PH, URINE 5.5 (5.0-8.5); URINE LEUKOCYTE ESTERASE TRACE (NEG)
[2017-06-21 17:10] LABS: BILIRUBIN, URINE NEG (NEG)
[2017-06-21 17:16] LABS: URINE COLOR ORANGE (YELLW/STRAW)
[2017-06-21 17:17] LABS: WHITE BLOOD CELL CAST, URINE 0-2 /lpf
[2017-06-21] MEDS: SODIUM CHLOR 0.9% 1000 ML INJ 1,000 ML IV SCH (18:00)
[2017-06-21] MEDS ORDERED: ONDANSETRON HCL 4 MG/2 ML VIAL IVP PRN (18:30)
[2017-06-21] MEDS ORDERED: SENNOSIDES 8.6 MG TAB PO PRN (18:30)
[2017-06-21] MEDS ORDERED: NALOXONE HCL 0.4 MG/ML AMP IV PUSH PRN (18:30)
[2017-06-21] MEDS ORDERED: SODIUM CHLORIDE 0.9% FLUSH 10 ML FLUSH IV FLUSH PRN (18:30)
[2017-06-21] MEDS: SODIUM CHLORIDE 0.9% FLUSH 10 ML FLUSH IV FLUSH SCH (20:50)
[2017-06-21] MEDS ORDERED: ALPRAZolam 0.5 MG TAB PO ONE (23:45)
[2017-06-21] MEDS: ACETAMINOPHEN 325 MG TAB PO PRN (23:51)
[2017-06-22] VITALS: BP 149/68; PULSE 113; RESP 20; TEMP 99.8; O2SAT 93
[2017-06-22 07:08] LABS: AUTOMATED NEUTROPHIL # 29.9 TH/MM3 (1.8-7.7); BASOPHIL # 0.1 TH/MM3 (0-0.2); BASOPHIL % 0.3 % (0.0-2.0); EOSINOPHIL # 0.1 TH/MM3 (0-0.4); EOSINOPHIL % 0.3 % (0.0-4.0); HEMATOCRIT 31.7 % (35.0-46.0); HEMOGLOBIN 9.9 GM/DL (11.6-15.3); LYMPH % 1.8 % (9.0-44.0); LYMPHOCYTE # 0.6 TH/MM3 (1.0-4.8); MEAN CELL VOLUME 94.6 FL (80.0-100.0); MEAN CORPUSCULAR HEMOGLOBIN 29.7 PG (27.0-34.0); MEAN CORPUSCULAR HGB CONC 31.4 % (32.0-36.0); MEAN PLATELET VOLUME 9.1 FL (7.0-11.0); MONO % 12.5 % (0.0-8.0); MONOCYTE # 4.4 TH/MM3 (0-0.9); NEUT % 85.1 % (16.0-70.0); PLATELET COUNT 326 TH/MM3 (150-450); RED BLOOD COUNT 3.35 MIL/MM3 (4.00-5.30); RED CELL DISTRIBUTION WIDTH 14.4 % (11.6-17.2); WHITE BLOOD COUNT 35.1 TH/MM3 (4.0-11.0)
[2017-06-22 07:38] LABS: BICARBONATE 22.2 MEQ/L (21.0-32.0); CALCIUM 7.6 MG/DL (8.5-10.1); CREATININE 0.58 MG/DL (0.50-1.00)
[2017-06-22 07:50] VITALS: BP 102/52; PULSE 109; RESP 20; TEMP 100.6; O2SAT 92
[2017-06-22 08:06] LABS: BANDS 12 % (0-6); LYMPHOCYTES 3 % (9-44); MONOCYTES 7 % (0-8); NEUTROPHIL # MANUAL DIFF 31.6 TH/MM3 (1.8-7.7); POLYS (SEG NEUTROPHILS) 78 % (16-70)
[2017-06-22] MEDS ORDERED: NON-FORMULARY DRUG (Silodosin (Rapaflo) 8 MG) PO SCH (09:00)
--- NOTE | 2017-06-22 09:00 | HHI.HP ---
HPI Service [facility] Hospitalists Primary Care Physician Nakul Colin MD Admission Diagnosis sepsis, uti Diagnoses: Chief Complaint: abd pain Travel History International Travel<30 Days: No Contact w/Intl Traveler <30 Da: No Traveled to Known Affected Are: No History of Present Illness 86-year-old white female being a minute for sepsis secondary to possible urinary tract infection. Patient was in her usual state of health until a few days ago when she began having decreased by mouth intake due to a decrease in appetite. This was followed eventually by some acute urinary retention as well as vague diffuse cramping abdominal pain and some pasty stools. Thus she was brought to the emergency department yesterday. The daughters present at the bedside and said that she did see that her mother was in substantial pain was also very anxious at the same time knowing that she has a chronic anxiety problem for which she takes Xanax. They deny any reports of any vomiting or any nausea or fever. The daughter states that the patient has had approximately 3 urinary tract infections in the last 4 months and they would like to switch to a new urologist upon discharge. The patient was recently discharged from the hospital for rectal sigmoiditis and abdominal pain secondary to constipation. Patient was found to have a suspicious urine analysis, started on Rocephin, vancomycin, and Zosyn in the emergency department. Says that she has now been unable to urinate since being admitted to the hospital. Review of Systems Except as stated in HPI: all other systems reviewed are Neg Past Family Social History Past Medical History Past Medical History Ruthie's granulomatosis Past Surgical History Cholecystectomy, appendectomy, sections, hysterectomy, partial lobar lung resection Allergies: Coded Allergies: aspirin (Unverified Adverse Reaction, Unknown, GI UPSET, 06/06/17) pt states does not have a allergy to this medication Family History HTN Social History tobacco use, lives in [facility] Allergies: Coded Allergies: aspirin (Unverified Adverse Reaction, Unknown, GI UPSET, 06/06/17) pt states does not have a allergy to this medication Physical Exam Vital Signs Vital Signs Date Time Temp Pulse Resp B/P (MAP) Pulse Ox O2 Delivery O2 Flow Rate FiO2 2/8/18 00:00 99.8 113 20 149/68 (95) 93 06/21/17 20:42 06/21/17 20:40 97.9 87 20 113/55 (74) 92 06/21/17 19:15 95 20 112/57 (75) 96 Nasal Cannula 2.00 06/21/17 17:45 87 16 114/59 (77) 97 Nasal Cannula 2.00 06/21/17 17:00 82 16 111/59 (76) 96 Nasal Cannula 2.00 06/21/17 16:54 94 12 111/59 (76) 94 Nasal Cannula 2.00 06/21/17 15:00 84 16 100/51 (67) 96 Nasal Cannula 2.00 06/21/17 14:20 97 Room Air 06/21/17 14:00 90 16 114/54 (74) 97 Nasal Cannula 2.00 06/21/17 13:13 99.3 84 18 106/53 (70) 98 Physical Exam VS: afebrile GENERAL: elderly female lying in bed, in NAD SKIN: Warm and dry. EYES: No scleral icterus. No injection or drainage. ENT: No nasal bleeding or discharge. Mucous membranes pink and moist. CARDIOVASCULAR: Regular rate and rhythm. no murmurs RESPIRATORY: No accessory muscle use. Clear to auscultation. Breath sounds equal bilaterally. GASTROINTESTINAL: Abdomen soft, non-tender, nondistended. Extremities: No clubbing, cyanosis, or edema. No obvious deformities. MUSCULOSKELETAL: adequate muscle bulk and tone for age and habitus NEUROLOGICAL: Awake and alert. No obvious cranial nerve deficits. No facial droop nor slurred speech noted. PSYCHIATRIC: Appropriate mood and affect; insight and judgment normal. Laboratory Laboratory Tests Test 06/21/17 14:35 06/21/17 15:50 06/21/17 16:46 06/21/17 23:53 White Blood Count 36.3 Red Blood Count 3.60 Hemoglobin 10.8 Hematocrit 33.2 Mean Corpuscular Volume 92.3 Mean Corpuscular Hemoglobin 30.0 Mean Corpuscular Hemoglobin Concent 32.5 Red Cell Distribution Width 13.8 Platelet Count 359 Mean Platelet Volume 8.1 Neutrophils (%) (Auto) 87.0 Lymphocytes (%) (Auto) 1.9 Monocytes (%) (Auto) 8.5 Eosinophils (%) (Auto) 0.4 Basophils (%) (Auto) 2.2 Neutrophils # (Auto) 31.6 Lymphocytes # (Auto) 0.7 Monocytes # (Auto) 3.1 Eosinophils # (Auto) 0.1 Basophils # (Auto) 0.8 CBC Comment AUTO DIFF Differential Total Cells Counted 100 Neutrophils % (Manual) 81 Band Neutrophils % 6 Lymphocytes % 3 Monocytes % 9 Eosinophils % 1 Neutrophils # (Manual) 31.6 Differential Comment FINAL DIFF MANUAL Blood Urea Nitrogen 13 Creatinine 0.66 Random Glucose 89 Total Protein 6.5 Albumin 3.0 Calcium Level 7.9 Alkaline Phosphatase 141 Aspartate Amino Transf (AST/SGOT) 21 Alanine Aminotransferase (ALT/SGPT) 32 Total Bilirubin 1.0 Sodium Level 134 Potassium Level 3.6 Chloride Level 99 Carbon Dioxide Level 29.4 Anion Gap 6 Estimat Glomerular Filtration Rate 85 Lipase 109 Lactic Acid Level 1.1 Urine Collection Type CATH Urine Color ORANGE Urine Turbidity CLEAR Urine pH 5.5 Urine Specific [place] 1.018 Urine Protein 100 Urine Glucose (UA) 100 Urine Ketones TRACE Urine Occult Blood NEG Urine Nitrite POS Urine Bilirubin NEG Urine Leukocyte Esterase TRACE Urine WBC 3-5 Urine White Blood Cell Casts 0-2 Urine Yeast (Budding) MOD Microscopic Urinalysis Comment CULTURE INDICATED Test 06/22/17 05:27 White Blood Count 35.1 Red Blood Count 3.35 Hemoglobin 9.9 Hematocrit 31.7 Mean Corpuscular Volume 94.6 Mean Corpuscular Hemoglobin 29.7 Mean Corpuscular Hemoglobin Concent 31.4 Red Cell Distribution Width 14.4 Platelet Count 326 Mean Platelet Volume 9.1 Neutrophils (%) (Auto) 85.1 Lymphocytes (%) (Auto) 1.8 Monocytes (%) (Auto) 12.5 Eosinophils (%) (Auto) 0.3 Basophils (%) (Auto) 0.3 Neutrophils # (Auto) 29.9 Lymphocytes # (Auto) 0.6 Monocytes # (Auto) 4.4 Eosinophils # (Auto) 0.1 Basophils # (Auto) 0.1 CBC Comment AUTO DIFF Differential Total Cells Counted 100 Neutrophils % (Manual) 78 Band Neutrophils % 12 Lymphocytes % 3 Monocytes % 7 Neutrophils # (Manual) 31.6 Differential Comment FINAL DIFF MANUAL Platelet Estimate NORMAL Platelet Morphology Comment NORMAL Crenated Cell 1+ Blood Urea Nitrogen 12 Creatinine 0.58 Random Glucose 55 Calcium Level 7.6 Sodium Level 136 Potassium Level 2.9 Chloride Level 103 Carbon Dioxide Level 22.2 Anion Gap 11 Estimat Glomerular Filtration Rate 98 Date/Time Source Procedure Growth Status 06/21/17 15:50 Blood Peripheral Aerobic Blood Culture Pending Received 06/21/17 15:50 Blood Peripheral Anaerobic Blood Culture Pending Received 06/21/17 16:46 Urine Catheterized Urine Urine Culture Pending Received Result Diagram: 06/22/17 0527 06/22/1727 Imaging Last Impressions Chest X-Ray 06/21/17 0000 Signed Impressions: Service Date/Time: Wednesday, June 21, 2017 14:11 - CONCLUSION: 1. Small to moderate right pleural effusion is stable. 2. Scattered atelectatic changes are noted and are stable. 3. Cardiomegaly. 4. Degenerative changes and scoliosis of the thoracolumbar spine. Alfredo Cook MD Abdomen/Pelvis CT 06/21/17 0000 Signed Impressions: Service Date/Time: Wednesday, June 21, 2017 16:15 - CONCLUSION: Diverticuli sigmoid colon without diverticulitis. Blaine Stephens MD FACR Caprini VTE Risk Assessment Caprini VTE Risk Assessment: No/Low Risk (score <= 1) Caprini Risk Assessment Model Point Value = 1 Point Value = 2 Point Value = 3 Point Value = 5 Age 41-60 Minor surgery BMI > 25 kg/m2 Swollen legs Varicose veins or History of unexplained or recurrent spontaneous Oral contraceptives or hormone replacement Sepsis (< 1 month) Serious lung disease, including pneumonia (< 1 month) Abnormal pulmonary function Acute myocardial infarction Congestive heart failure (< 1 month) History of inflammatory bowel disease Medical patient at bed rest Age 61-74 Arthroscopic surgery Major open surgery (> 45 min) Laparoscopic surgery (> 45 min) Malignancy Confined to bed (> 72 hours) Immobilizing plaster cast Central venous access Age >= 75 History of VTE Family history of VTE Factor V Leiden Prothrombin [id number] Lupus anticoagulant Anticardiolipin antibodies Elevated serum homocysteine Heparin-induced thrombocytopenia Other congenital or acquired thrombophilia Stroke (< 1 month) Elective arthroplasty Hip, pelvis, or leg fracture Acute spinal cord injury (< 1 month) Prophylaxis Regimen Total Risk Factor Score Risk Level Prophylaxis Regimen 0-1 Low Early ambulation 2 Moderate Order ONE of the following: *Sequential Compression Device (SCD) *Heparin 5000 units SQ BID 3-4 Higher Order ONE of the following medications: *Heparin 5000 units SQ TID *Enoxaparin/Lovenox 40 mg SQ daily (WT < 150 kg, CrCl > 30 mL/min) *Enoxaparin/Lovenox 30 mg SQ daily (WT < 150 kg, CrCl > 10-29 mL/min) *Enoxaparin/Lovenox 30 mg SQ BID (WT < 150 kg, CrCl > 30 mL/min) AND/OR *Sequential Compression Device (SCD) 5 or more Highest Order ONE of the following medications: *Heparin 5000 units SQ TID (Preferred with Epidurals) *Enoxaparin/Lovenox 40 mg SQ daily (WT < 150 kg, CrCl > 30 mL/min) *Enoxaparin/Lovenox 30 mg SQ daily (WT < 150 kg, CrCl > 10-29 mL/min) *Enoxaparin/Lovenox 30 mg SQ BID (WT < 150 kg, CrCl > 30 mL/min) AND *Sequential Compression Device (SCD) Assessment and Plan Assessment and Plan sepsis 2/2 possible UTI and nonspecified enteritis - clinically improving w/ rocephin, expand abx as appropriate - f/u blood cultures, I independently reviewed the chest x-ray and CTA similar right-sided pleural effusion as identified before on the patient's prior admission., No acute infiltrates otherwise suggestive of pneumonia - I independently reviewed the CT scan see no substantial constipation. Radiology read shows no diverticulitis or colitis. - Pending C. difficile PCR - Despite traditionally warranting a 30 mL/KG bolus of normal saline, the patient does go into pulmonary edema quite easily and thus we will very judiciously exercise IV fluids, lactated within normal limits currently abd pain - likely 2/2 UTI - pending C. diff pcr, ct abd neg hypokalemia - likely 2/2 diuretic and diarrhea, replace and monitor along w/ Mg chronic hypoxic respiratory failure - Oxygen Ruthie's granulomatosis - May use home methotrexate Urinary retention - acute on chronic, likely 2/2 UTI, improving, monitor Resume home metoprolol and almost ARB, holding home amlodipine; resume home xanax lovenox Physician Certification 2 Midnight Certification Type: Admission for Inpatient Services Order for Inpatient Services The services are ordered in accordance with Medicare regulations or non- Medicare payer requirements, as applicable. In the case of services not specified as inpatient-only, they are appropriately provided as inpatient services in accordance with the 2-midnight benchmark. Estimated LOS (days): 3 2 days is the estimated time the patient will need to remain in the hospital, assuming treatment plan goals are met and no additional complications. Post-Hospital Plan: Home Fahad Marsh MD Jun 22, 2017 09:00
[2017-06-22] MEDS ORDERED: PILL SPLITTER OTHER PRN (09:30)
[2017-06-22] MEDS: MAGNESIUM OXIDE 400 MG TAB PO SCH (09:48)
[2017-06-22] MEDS: ACETAMINOPHEN 325 MG TAB PO PRN (09:49)
[2017-06-22] MEDS: cefTRIAXone INJ 1,000 MG in SODIUM CHLORIDE 0.9% INJ 100 ML IV SCH (09:51)
[2017-06-22] MEDS: SODIUM CHLORIDE 0.9% FLUSH 10 ML FLUSH IV FLUSH SCH ×2 (09:52→21:27)
[2017-06-22] MEDS: SODIUM CHLOR 0.9% 1000 ML INJ 1,000 ML IV SCH ×2 (09:52→22:07)
[2017-06-22] MEDS: METOPROLOL TARTRATE 25 MG TAB PO SCH ×2 (11:30→21:00)
[2017-06-22] MEDS: PHENAZOPYRIDINE HCL 100 MG TAB PO SCH (11:30)
[2017-06-22] MEDS: POTASSIUM BICARBONATE 25 MEQ EFFERVESCENT TAB PO SCH (11:31)
[2017-06-22 11:50] VITALS: BP 94/51; PULSE 108; RESP 20; TEMP 97.8; O2SAT 92
[2017-06-22] MEDS: metroNIDAZOLE 500 MG TAB PO SCH ×2 (13:03→16:40)
[2017-06-22 15:50] VITALS: BP 94/50; PULSE 106; RESP 20; TEMP 97; O2SAT 95
[2017-06-22] MEDS: ALPRAZolam 0.5 MG TAB PO PRN (18:58)
[2017-06-22] MEDS ORDERED: SODIUM CHLOR 0.9% 250 ML INJ 250 ML IV ONE (19:15)
[2017-06-22 20:00] VITALS: BP 109/54; PULSE 96; RESP 20; TEMP 98.8; O2SAT 93
[2017-06-22] MEDS ORDERED: TAMSULOSIN HCL 0.4 MG CAP PO SCH (21:00)
[2017-06-23] VITALS: BP 123/58; PULSE 98; RESP 20; TEMP 98.8; O2SAT 93
[2017-06-23 04:00] VITALS: BP 123/58; PULSE 97; RESP 20; TEMP 98.9; O2SAT 92
[2017-06-23 08:00] VITALS: BP 127/74; PULSE 119; RESP 17; TEMP 98.1; O2SAT 98
[2017-06-23] MEDS: SODIUM CHLOR 0.9% 1000 ML INJ 1,000 ML IV SCH ×2 (08:07→20:18)
[2017-06-23] MEDS: SODIUM CHLORIDE 0.9% FLUSH 10 ML FLUSH IV FLUSH SCH ×2 (09:00→20:17)
[2017-06-23] MEDS ORDERED: POTASSIUM CHLORIDE 20 MEQ PWD PACKET PO ONE (11:00)
[2017-06-23] MEDS: POTASSIUM BICARBONATE 25 MEQ EFFERVESCENT TAB PO SCH (11:22)
[2017-06-23] MEDS: METOPROLOL TARTRATE 25 MG TAB PO SCH ×2 (11:22→20:18)
[2017-06-23] MEDS: cefTRIAXone INJ 1,000 MG in SODIUM CHLORIDE 0.9% INJ 100 ML IV SCH (11:23)
[2017-06-23] MEDS: metroNIDAZOLE 500 MG TAB PO SCH ×3 (11:23→18:54)
[2017-06-23] MEDS: PHENAZOPYRIDINE HCL 100 MG TAB PO SCH (11:23)
[2017-06-23] MEDS: MAGNESIUM OXIDE 400 MG TAB PO SCH (11:40)
[2017-06-23] MEDS: ALPRAZolam 0.5 MG TAB PO PRN ×2 (11:40→20:18)
[2017-06-23 11:55] LABS: AUTOMATED NEUTROPHIL # 28.8 TH/MM3 (1.8-7.7); BASOPHIL # 0.5 TH/MM3 (0-0.2); BASOPHIL % 1.7 % (0.0-2.0); EOSINOPHIL # 0.4 TH/MM3 (0-0.4); EOSINOPHIL % 1.3 % (0.0-4.0); HEMATOCRIT 29.7 % (35.0-46.0); HEMOGLOBIN 9.7 GM/DL (11.6-15.3); LYMPH % 3.4 % (9.0-44.0); LYMPHOCYTE # 1.1 TH/MM3 (1.0-4.8); MEAN CELL VOLUME 92.4 FL (80.0-100.0); MEAN CORPUSCULAR HEMOGLOBIN 30.2 PG (27.0-34.0); MEAN CORPUSCULAR HGB CONC 32.7 % (32.0-36.0); MEAN PLATELET VOLUME 8.9 FL (7.0-11.0); MONO % 4.5 % (0.0-8.0); MONOCYTE # 1.5 TH/MM3 (0-0.9); NEUT % 89.1 % (16.0-70.0); PLATELET COUNT 352 TH/MM3 (150-450); RED BLOOD COUNT 3.21 MIL/MM3 (4.00-5.30); RED CELL DISTRIBUTION WIDTH 14.1 % (11.6-17.2); WHITE BLOOD COUNT 32.3 TH/MM3 (4.0-11.0)
[2017-06-23 12:00] VITALS: BP 130/79; PULSE 101; RESP 18; TEMP 97.8; O2SAT 89
[2017-06-23 12:27] LABS: BANDS 10 % (0-6); BASOPHILS 1 % (0-2); LYMPHOCYTES 7 % (9-44); MONOCYTES 3 % (0-8); NEUTROPHIL # MANUAL DIFF 28.1 TH/MM3 (1.8-7.7); POLYS (SEG NEUTROPHILS) 77 % (16-70)
[2017-06-23 16:00] VITALS: BP 129/60; PULSE 88; RESP 20; TEMP 97.4; O2SAT 92
--- NOTE | 2017-06-23 17:25 | HHI.PR ---
Subjective Remarks Nursing denies any deterioration since last night except for some urinary retention. Bladder scan showing at least 600 MLS. Patient reports still having loose stools. Patient thinks that her belly is a little bit bigger today than it was yesterday. Denies any nausea vomiting. Tolerating by mouth intake. Objective Vital Signs Date Time Temp Pulse Resp B/P (MAP) Pulse Ox O2 Delivery O2 Flow Rate FiO2 06/23/17 12:00 97.8 101 18 130/79 (96) 89 06/23/17 08:00 98.1 119 17 127/74 (91) 98 06/23/17 04:00 98.9 97 20 123/58 (79) 92 06/23/17 00:00 98.8 98 20 123/58 (79) 93 06/22/17 20:00 98.8 96 20 109/54 (72) 93 I/O 06/22/17 06/22/17 06/22/17 06/23/17 06/23/17 06/23/17 07:00 15:00 23:00 07:00 15:00 23:00 Intake Total 240 ml 100 ml 995 ml 1106 ml Output Total 0 ml Balance 240 ml 100 ml 995 ml 1106 ml Intake Oral 240 ml 620 ml 120 ml IV Total 100 ml 375 ml 986 ml Output Urine Total 0 ml # Voids 0 3 1 # Bowel Movements 4 10 2 Result Diagram: 06/23/17 1050 06/22/17 0527 Objective Remarks Bowel sounds are hyperactive, mild abdominal distention, mild tenderness to palpation diffusely Lung sounds clear with slightly diminished breath sounds in the bases Lying in bed, no acute distress A/P Assessment and Plan sepsis 2/2 possible UTI and C. difficile colitis - See treatment below, receiving IV fluids Possible UTI - Yeast noted, giving 1 dose of Diflucan - Urinary retention is still a problem, catheter has been inserted C. difficile colitis - Still having loose stools, stopping Rocephin, continue Flagyl day 2 if stools do not show improvement by tomorrow night, will switch over to vancomycin - If abdominal distention continues will obtain KUB hypokalemia - likely 2/2 diuretic and diarrhea, replace and monitor along w/ Mg chronic hypoxic respiratory failure - Oxygen Ruthie's granulomatosis - May use home methotrexate Urinary retention - Catheter now inserted, Debility - PT and OT ordered home metoprolol and ARB, holding home amlodipine; continue home xanax lovenox Fahad Marsh MD Jun 23, 2017 17:24
[2017-06-23] MEDS ORDERED: FLUCONAZOLE 100 MG TAB PO ONE (17:30)
[2017-06-23 20:00] VITALS: BP 128/62; PULSE 93; RESP 20; TEMP 97.4; O2SAT 96
[2017-06-23] MEDS: ACETAMINOPHEN 325 MG TAB PO PRN (21:39)
[2017-06-24] VITALS (7 sets, daily range): BP systolic 124–146; BP diastolic 59–71; PULSE 76–92; RESP 18–36; TEMP 96.8–98.6; O2SAT 95–97
[2017-06-24] MEDS: ALPRAZolam 0.5 MG TAB PO PRN ×2 (04:34→21:53)
[2017-06-24 08:26] LABS: BICARBONATE 27.8 MEQ/L (21.0-32.0); CALCIUM 8.2 MG/DL (8.5-10.1); CREATININE 0.54 MG/DL (0.50-1.00)
[2017-06-24] MEDS: metroNIDAZOLE 500 MG TAB PO SCH (09:23)
[2017-06-24] MEDS: METOPROLOL TARTRATE 25 MG TAB PO SCH ×2 (09:25→21:53)
[2017-06-24] MEDS: POTASSIUM BICARBONATE 25 MEQ EFFERVESCENT TAB PO SCH (09:31)
[2017-06-24] MEDS: PHENAZOPYRIDINE HCL 100 MG TAB PO SCH (09:32)
[2017-06-24] MEDS: SODIUM CHLORIDE 0.9% FLUSH 10 ML FLUSH IV FLUSH SCH ×2 (09:34→21:54)
[2017-06-24] MEDS: MAGNESIUM OXIDE 400 MG TAB PO SCH (10:09)
[2017-06-24] MEDS: VANCOMYCIN 25 MG/ML SUSP 100 ML BOTTLE PO SCH ×2 (11:56→17:46)
--- NOTE | 2017-06-24 13:04 | RADRPT ---
EXAM DATE/TIME: 06/24/2017 12:21 [facility] COMPARISON: No previous studies available for comparison. INDICATIONS : Distension, possible megacolon from c diff. MEDICAL HISTORY : Chronic obstructive pulmonary disease. SURGICAL HISTORY : Lobectomy. ENCOUNTER: Subsequent ACUITY: 1 week PAIN SCORE: 0/10 LOCATION: Bilateral FINDINGS: There is a nonobstructive bowel gas pattern present. No evidence of colonic dilation. There is sugges tion of wall thickening identified within the region of the splenic flexure. The osseous structures d emonstrate degenerative changes. CONCLUSION: No evidence of abnormal bowel dilation. Suggestion of wall thickening identified within the region of the splenic flexure. Keturah Nicholas MD on June 24, 2017 at 13:01 Board Certified Radiologist. This report was verified electronically.
--- NOTE | 2017-06-24 13:47 | HHI.PR ---
Subjective Remarks Nursing denies any deterioration since last night except that the patient's stools are still quite runny. Patient denies any nausea vomiting. Tolerating by mouth intake well. Reports mild right sided quadrant pain. Objective Vital Signs Date Time Temp Pulse Resp B/P (MAP) Pulse Ox O2 Delivery O2 Flow Rate FiO2 06/24/17 07:30 98.1 89 20 146/67 (93) 06/24/17 00:00 96.8 76 18 124/59 (80) 95 06/23/17 20:00 97.4 93 20 128/62 (84) 96 06/23/17 16:00 97.4 88 20 129/60 (83) 92 I/O 06/23/17 06/23/17 06/23/17 06/24/17 06/24/17 06/24/17 06:59 14:59 22:59 06:59 14:59 22:59 Intake Total 1106 ml 1100 ml 626 ml 460 ml Output Total 500 ml 650 ml Balance 1106 ml 1100 ml 126 ml -190 ml Intake Oral 120 ml 500 ml 240 ml IV Total 986 ml 1100 ml 126 ml 220 ml Output Urine Total 500 ml 650 ml Bladder Scan Volume Amount 594 ml # Voids 1 # Bowel Movements 3 1 3 Result Diagram: 06/23/17 1050 06/24/17 0700 Objective Remarks Bowel sounds are hyperactive, abd is soft with intermittent tautness only with diaphragmatic expiraiton, ND overall Lying in bed, no acute distress A/P Assessment and Plan sepsis 2/2 possible UTI and C. difficile colitis - See treatment below, receiving IV fluids urinary retention - keep patrick catheter severe C. difficile colitis - has been switched to vancomycin due to severity and persistence, KUB reviewed independently by me which shows no significant colonic dilatation, radiology read affirms this as well. hypokalemia - likely 2/2 diuretic and diarrhea, replace and monitor along w/ Mg chronic hypoxic respiratory failure - Oxygen Ruthie's granulomatosis - May use home methotrexate Debility - PT and OT ordered home metoprolol and ARB, holding home amlodipine; continue home xanax lovenox Addendum: Patient reports to be slightly more labored in her breathing. Ordering one-time Lasix, chest x-ray obtained which I independently reviewed showing slightly increased right-sided pleural effusion. Fahad Marsh MD Jun 24, 2017 13:47
[2017-06-24] MEDS ORDERED: FUROSEMIDE 40 MG/4 ML VIAL IV PUSH ONE (15:00)
[2017-06-24] MEDS: ENOXAPARIN SODIUM 30 MG/0.3 ML SYRINGE SQ SCH (15:11)
--- NOTE | 2017-06-24 16:24 | RADRPT ---
EXAM DATE/TIME: 06/24/2017 15:38 [facility] COMPARISON: CT ABDOMEN & PELVIS W/O CONTRAST, June 06, 2017, 11:51. CT ABDOMEN & PELVIS W CONTRAST, June 21, 2017, 16:15. CHEST SINGLE AP, July 19, 2016, 16:00. CHEST SINGLE AP, June 06, 2017, 11:40. CHEST SINGLE AP, June 21, 2017, 14:11. INDICATIONS : Dyspnea. MEDICAL HISTORY : Chronic obstructive pulmonary disease. Hypertension SURGICAL HISTORY : Lobectomy. section.Hysterectomy. ENCOUNTER: Subsequent ACUITY: 3 weeks PAIN SCORE: 0/10 LOCATION: Bilateral chest FINDINGS: Chest appears stable with scoliosis of the thoracic or lumbar spine to the left and osteoporosis of t he bony structures which are intact. There is atherosclerotic cardiovascular disease with left ventri cular cardiomegaly and calcification in the aortic knob as well as tortuosity of the descending aorta . There are areas of linear scarring in the left lung base and in the right medial lung base there ar e surgical clips infrahilar as well as apparent chronic pleural changes in the right lung base. CONCLUSION: Stable chest as described above Kunal Huang MD on June 24, 2017 at 16:19 Board Certified Radiologist. This report was verified electronically.
[2017-06-25] VITALS: BP 135/65; PULSE 79; RESP 18; TEMP 98.6; O2SAT 97
[2017-06-25] MEDS: VANCOMYCIN 25 MG/ML SUSP 100 ML BOTTLE PO SCH ×4 (00:21→18:14)
[2017-06-25 07:38] LABS: AUTOMATED NEUTROPHIL # 6.4 TH/MM3 (1.8-7.7); BASOPHIL # 0.1 TH/MM3 (0-0.2); BASOPHIL % 0.7 % (0.0-2.0); EOSINOPHIL # 0.5 TH/MM3 (0-0.4); EOSINOPHIL % 5.5 % (0.0-4.0); HEMATOCRIT 32.1 % (35.0-46.0); LYMPH % 12.8 % (9.0-44.0); LYMPHOCYTE # 1.2 TH/MM3 (1.0-4.8); MEAN CELL VOLUME 94.3 FL (80.0-100.0); MEAN CORPUSCULAR HEMOGLOBIN 29.3 PG (27.0-34.0); MEAN PLATELET VOLUME 7.9 FL (7.0-11.0); MONO % 15.3 % (0.0-8.0); MONOCYTE # 1.5 TH/MM3 (0-0.9); NEUT % 65.7 % (16.0-70.0); PLATELET COUNT 403 TH/MM3 (150-450); RED CELL DISTRIBUTION WIDTH 14.2 % (11.6-17.2); WHITE BLOOD COUNT 9.7 TH/MM3 (4.0-11.0)
[2017-06-25 07:50] VITALS: BP 109/59; PULSE 96; RESP 20; TEMP 97.8; O2SAT 97
[2017-06-25 08:01] LABS: BICARBONATE 36.4 MEQ/L (21.0-32.0); CALCIUM 8.1 MG/DL (8.5-10.1); CREATININE 0.5 MG/DL (0.50-1.00)
--- NOTE | 2017-06-25 09:35 | HHI.PR ---
Subjective Remarks Nursing denies any deterioration since last night. Patient himself says she hasn't had any stool since last night but this is questionable since the patient is oftentimes confused at baseline. She does report having some mildly increased transient abdominal pain that is now gone. She appears depressed and says she wants to leave from this earth, is miserable of being in the hospital frequently. Objective Vital Signs Date Time Temp Pulse Resp B/P (MAP) Pulse Ox O2 Delivery O2 Flow Rate FiO2 06/25/17 00:00 98.6 79 18 135/65 (88) 97 06/24/17 20:00 98.5 91 18 133/60 (84) 97 06/24/17 20:00 97 Nasal Cannula 3.00 06/24/17 15:50 98.6 92 20 136/71 (92) 97 06/24/17 14:22 36 96 06/24/17 14:18 95 Nasal Cannula 3.00 06/24/17 11:50 97.3 90 20 140/66 (90) 95 I/O 06/24/17 06/24/17 06/24/17 06/25/17 06/25/17 06/25/17 07:00 15:00 23:00 07:00 15:00 23:00 Intake Total 460 ml 168 ml 510 ml 480 ml Output Total 650 ml 2550 ml 900 ml Balance -190 ml 168 ml -2040 ml -420 ml Intake Oral 240 ml 510 ml 480 ml IV Total 220 ml 168 ml Output Urine Total 650 ml 2550 ml 900 ml # Bowel Movements 3 1 1 Result Diagram: 06/25/17 0655 06/25/17 0655 Objective Remarks Bowel sounds +, abd is soft Lying in bed, no acute distress slightly decreased BS on right, clear otherwise, unlabored breathing A/P Assessment and Plan sepsis 06/16 C. difficile colitis - will stop IVFs. resolved from sepsis standpoint severe C. difficile colitis - continue vancomycin, white count finally showing improvement (normalized today ) Right-sided pleural effusion - Judicious dosing with Lasix, urinary retention - keep Jain catheter, will need urology as outpatient depression - starting celexa hypokalemia - stabilized chronic hypoxic respiratory failure - Oxygen Ruthie's granulomatosis - May use home methotrexate Debility - PT and OT ordered home metoprolol and ARB, holding home amlodipine; continue home xanax lovenox Fahad Marsh MD Jun 25, 2017 09:35
[2017-06-25] MEDS: POTASSIUM BICARBONATE 25 MEQ EFFERVESCENT TAB PO SCH (10:08)
[2017-06-25] MEDS: PHENAZOPYRIDINE HCL 100 MG TAB PO SCH (10:09)
[2017-06-25] MEDS: METOPROLOL TARTRATE 25 MG TAB PO SCH ×2 (10:09→22:02)
[2017-06-25] MEDS: MAGNESIUM OXIDE 400 MG TAB PO SCH (10:09)
[2017-06-25] MEDS: SODIUM CHLORIDE 0.9% FLUSH 10 ML FLUSH IV FLUSH SCH ×2 (10:12→22:02)
[2017-06-25 11:50] VITALS: BP 141/71; PULSE 90; RESP 20; TEMP 97.5; O2SAT 92
[2017-06-25] MEDS: CITALOPRAM HYDROBROMIDE 20 MG TAB PO SCH (12:15)
[2017-06-25] MEDS: ENOXAPARIN SODIUM 30 MG/0.3 ML SYRINGE SQ SCH (15:02)
[2017-06-25 15:50] VITALS: BP 125/58; PULSE 89; RESP 20; TEMP 98.6; O2SAT 96
[2017-06-25 20:00] VITALS: BP 130/64; PULSE 72; RESP 20; TEMP 98; O2SAT 96; O2SAT 98
[2017-06-25] MEDS: ALPRAZolam 0.5 MG TAB PO PRN (22:03)
[2017-06-25] MEDS ORDERED: traMADol HCL 50 MG TAB PO PRN (23:15)
[2017-06-26] VITALS (7 sets, daily range): BP systolic 142–155; BP diastolic 66–72; PULSE 83–103; RESP 14–20; TEMP 96.6–98.1; O2SAT 94–97
[2017-06-26] MEDS: VANCOMYCIN 25 MG/ML SUSP 100 ML BOTTLE PO SCH ×5 (01:25→23:49)
[2017-06-26] MEDS: POTASSIUM BICARBONATE 25 MEQ EFFERVESCENT TAB PO SCH (10:46)
[2017-06-26] MEDS: METOPROLOL TARTRATE 25 MG TAB PO SCH ×2 (10:47→21:21)
[2017-06-26] MEDS: CITALOPRAM HYDROBROMIDE 20 MG TAB PO SCH (10:47)
[2017-06-26] MEDS: PHENAZOPYRIDINE HCL 100 MG TAB PO SCH (10:47)
[2017-06-26] MEDS: SODIUM CHLORIDE 0.9% FLUSH 10 ML FLUSH IV FLUSH SCH ×2 (10:49→19:42)
[2017-06-26] MEDS: MAGNESIUM OXIDE 400 MG TAB PO SCH (12:05)
--- NOTE | 2017-06-26 12:51 | HHI.DS ---
Discharge Summary Admission Date Jun 21, 2017 at 18:12 Discharge Date: Jun 26, 2017 Admitting Diagnosis Sepsis, uti (1) C. difficile colitis ICD Code: A04.72 - Enterocolitis due to Clostridium difficile, not specified as recurrent (2) Pleural effusion ICD Code: J90 - Pleural effusion, not elsewhere classified (3) Sepsis ICD Code: A41.9 - Sepsis, unspecified organism Status: Acute Procedures . Brief History - From Admission 86-year-old white female being a minute for sepsis secondary to possible urinary tract infection. Patient was in her usual state of health until a few days ago when she began having decreased by mouth intake due to a decrease in appetite. This was followed eventually by some acute urinary retention as well as vague diffuse cramping abdominal pain and some pasty stools. Thus she was brought to the emergency department yesterday. The daughters present at the bedside and said that she did see that her mother was in substantial pain was also very anxious at the same time knowing that she has a chronic anxiety problem for which she takes Xanax. They deny any reports of any vomiting or any nausea or fever. The daughter states that the patient has had approximately 3 urinary tract infections in the last 4 months and they would like to switch to a new urologist upon discharge. The patient was recently discharged from the hospital for rectal sigmoiditis and abdominal pain secondary to constipation. Patient was found to have a suspicious urine analysis, started on Rocephin, vancomycin, and Zosyn in the emergency department. Says that she has now been unable to urinate since being admitted to the hospital. CBC/BMP: 06/25/17 0655 06/25/17 0655 Significant Findings Laboratory Tests Test 06/24/17 07:00 06/25/17 06:55 Calcium Level 8.2 MG/DL (8.5-10.1) 8.1 MG/DL (8.5-10.1) Chloride Level 109 MEQ/L (98-107) Red Blood Count 3.40 MIL/MM3 (4.00-5.30) Hemoglobin 10.0 GM/DL (11.6-15.3) Hematocrit 32.1 % (35.0-46.0) Mean Corpuscular Hemoglobin Concent 31.0 % (32.0-36.0) Monocytes (%) (Auto) 15.3 % (0.0-8.0) Eosinophils (%) (Auto) 5.5 % (0.0-4.0) Monocytes # (Auto) 1.5 TH/MM3 (0-0.9) Eosinophils # (Auto) 0.5 TH/MM3 (0-0.4) Carbon Dioxide Level 36.4 MEQ/L (21.0-32.0) Anion Gap 3 MEQ/L (5-15) Imaging Last Impressions Chest X-Ray 06/24/17 0000 Signed Impressions: Service Date/Time: Saturday, June 24, 2017 15:38 - CONCLUSION: Stable chest as described above Kunal Huang MD Abdomen X-Ray 06/24/17 0000 Signed Impressions: Service Date/Time: Saturday, June 24, 2017 12:21 - CONCLUSION: No evidence of abnormal bowel dilation. Suggestion of wall thickening identified within the region of the splenic flexure. Keturah Nicholas MD Abdomen/Pelvis CT 06/21/17 0000 Signed Impressions: Service Date/Time: Wednesday, June 21, 2017 16:15 - CONCLUSION: Diverticuli sigmoid colon without diverticulitis. Blaine Stephens MD FACR PE at Discharge GENERAL: Well-developed thin appearing elderly female patient in NAD. On supplemental O2, this patient's baseline SKIN: Warm and dry. No rash. HEENT: Normocephalic. Atraumatic. Pupils equal and round. No scleral icterus. No injection or drainage. No nasal bleeding or discharge. Mucous membranes pink and moist. NECK: Supple. Trachea midline. CARDIOVASCULAR: Regular rate and rhythm. S1, S2 noted. No murmur appreciated. RESPIRATORY: No accessory muscle use. Clear to auscultation. Breath sounds equal bilaterally. GASTROINTESTINAL: Abdomen soft, non-tender, nondistended. Normoactive bowel sounds x4. MUSCULOSKELETAL: No obvious deformities. Extremities without clubbing, cyanosis , or edema. NEUROLOGICAL: Awake and alert. No obvious cranial nerve deficits. Motor grossly within normal limits. 5/5 muscle strength in bilateral upper and lower extremities. Normal speech. PSYCHIATRIC: Appropriate mood and affect; insight and judgment normal. Pt update on day of discharge Follow-up C. difficile colitis. Patient seen and examined, lying in bed comfortably. On supplemental O2, patient's baseline. States the pain is much improved. Has been tolerating by mouth intake, denies any nausea or vomiting. Diarrhea has improved. Patient is afebrile vital signs stable. Hospital Course Patient presented with sepsis 2/2 C. difficile colitis. Was started on IV fluids and IV antibiotics. Leukocytosis improved. It was found the patient had right-sided pleural effusion, was given Lasix, dyspnea improved. Patient has urinary retention, Jain catheter is in place, will follow up with urology as outpatient. Patient expressing symptoms depression, started on Celexa. Follow- up outpatient. Patient did have hypokalemia suspect secondary to diarrhea, was given replacements and now stabilized. Patient does have chronic hypoxic respiratory failure on oxygen, at patient's baseline. 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 PT and OT saw patient during hospitalization, continue rehabilitation outpatient at [facility]. Pt Condition on Discharge: Stable Discharge Disposition: [facility] Discharge Time: <= 30 minutes Discharge Instructions DIET: Follow Instructions for: As Tolerated, No Restrictions Speech Therapy-Diet Recommends: Regular Activities you can perform: Regular-No Restrictions Follow up Referrals: PCP Follow-up - 1 Week New Medications: Vancomycin (Vancomycin) 125 Mg Cap 125 MG PO QID for Infection for 11 Days, #44 CAP 0 Refills Continued Medications: Albuterol 18 GM Inh (Ventolin Hfa 18 GM Inh) 90 Mcg/Act Aer 2 PUFF INH Q4-6H PRN for SHORTNESS OF BREATH, #1 INHALER 0 Refills Alprazolam (Xanax) 0.5 Mg Tab 0.5 MG PO BID PRN for ANXIETY, TAB 0 Refills Amlodipine (Amlodipine) 5 Mg Tab 5 MG PO DAILY for Blood Pressure Management, #30 TAB 0 Refills Folic Acid (Folic Acid) 0.8 Mg Tab 1 MG PO M,T,W,F,SA,BRAGG for Nutritional Supplement, TAB 0 Refills Furosemide (Furosemide) 20 Mg Tab 20 MG PO DAILY PRN for pulmonary edema, #30 TAB 0 Refills Magnesium Oxide (Magnesium Oxide) 250 Mg Tab 250 MG PO DAILY for low magnesium, #30 TAB 0 Refills Methotrexate (Methotrexate) 2.5 Mg Tab 7.5 MG PO Q7D, TAB 0 Refills Metoprolol Tartrate (Metoprolol Tartrate) 25 Mg Tab 12.5 MG PO BID, #60 TAB 0 Refills Olmesartan (Olmesartan) 40 Mg Tab 40 MG PO DAILY for Blood Pressure Management, #30 TAB 0 Refills Phenazopyridine (Pyridium) 100 Mg Tab 100 MG PO DAILY for Dysuria, TAB 0 Refills Polyethylene Glycol 3350 Powder (Miralax Powder) 17 Gm Powd 17 GM PO DAILY for Constipation, #1 CAN 0 Refills Mix and dissolve one measuring cap-ful (17 grams) in water or juice. Potassium Bicarbonate Effervescent (Klor-Con EF) 25 Meq Tab 50 MEQ PO DAILY for Electrolyte Replacement, #30 TAB 0 Refills Silodosin (Rapaflo) 8 Mg Cap 8 MG PO DAILY for Manage Prostate Problems, #30 CAP 0 Refills Dee Dee Delgadillo Jun 26, 2017 12:51
--- NOTE | 2017-06-26 12:52 | HHI.DCPOC ---
Discharge Care Plan Diagnosis: (1) C. difficile colitis (2) Pleural effusion (3) Fall Goals to Promote Your Health * To prevent worsening of your condition and complications * To maintain your health at the optimal level Directions to Meet Your Goals Take your medications as prescribed Follow your dietary instruction Follow activity as directed Keep your appointments as scheduled Take your immunizations and boosters as scheduled If your symptoms worsen call your PCP, if no PCP go to Urgent Care Center or Emergency Room Smoking is Dangerous to Your Health. Avoid second hand smoke Call the 24-hour hour crisis hotline for domestic abuse at Dee Dee Delgadillo Jun 26, 2017 12:52
[2017-06-26] MEDS ORDERED: VANC125C3 PO (12:59)
--- NOTE | 2017-06-26 13:36 | HHI.FF ---
Face to Face Verification Diagnosis: (1) C. difficile colitis (2) Pleural effusion Physical Therapy Order: Evaluate and Treat Occupational Therapy Order: Evaluate and Treat Home Health Nursing Order: Medical education Signs/symptoms of disease process Oxygen administration education Nursing assessment with vital signs I have seen patient Stephanie Sharif on 06/26/17. My clinical findings support the need for the requested home health care services because: Limited ability to care for self I certify that my clinical findings support that this patient is homebound because: Unsafe to leave home unassisted Fahad Marsh MD Jun 26, 2017 13:36
[2017-06-26] MEDS: ENOXAPARIN SODIUM 30 MG/0.3 ML SYRINGE SQ SCH (13:40)
--- NOTE | 2017-06-26 17:54 | HHI.PR ---
Addendum to Inpatient Note Addendum Reason: Additional Documentation Additional Information Case management has spoke to patient's [facility] and is refusing to take patient back to [facility] until C. difficile is negative. CM has left message for nursing security officer supervisor at the [facility] updating about clinical resolution of diarrhea and continuing antibiotics. Dee Dee Delgadillo Jun 26, 2017 17:54
[2017-06-26] MEDS: ALPRAZolam 0.5 MG TAB PO PRN (21:28)
[2017-06-27] VITALS: BP 137/64; PULSE 80; RESP 20; TEMP 98; O2SAT 97
[2017-06-27] MEDS: VANCOMYCIN 25 MG/ML SUSP 100 ML BOTTLE PO SCH ×2 (05:01→11:13)
[2017-06-27 08:15] VITALS: O2SAT 94
[2017-06-27 08:43] VITALS: BP 138/77; PULSE 90; RESP 16; TEMP 97.7; O2SAT 95
[2017-06-27] MEDS: SODIUM CHLORIDE 0.9% FLUSH 10 ML FLUSH IV FLUSH SCH (11:03)
[2017-06-27] MEDS: METOPROLOL TARTRATE 25 MG TAB PO SCH (11:04)
[2017-06-27] MEDS: PHENAZOPYRIDINE HCL 100 MG TAB PO SCH (11:04)
[2017-06-27] MEDS: POTASSIUM BICARBONATE 25 MEQ EFFERVESCENT TAB PO SCH (11:04)
[2017-06-27] MEDS: CITALOPRAM HYDROBROMIDE 20 MG TAB PO SCH (11:04)
[2017-06-27] MEDS: MAGNESIUM OXIDE 400 MG TAB PO SCH (11:04)
--- NOTE | 2017-06-27 11:25 | HHI.PR ---
Subjective Remarks Patient seen and examined today for follow-up on sepsis secondary to clostridium difficile. Patient is clinically improved. She has been stable for discharge. Patient was discharged back to her [facility], However the [facility] will not accept her back secondary to clostridium infection. [facility] will be [facility] at this time. Awaiting arrangements made by case management. Objective Vitals Vital Signs Date Time Temp Pulse Resp B/P (MAP) Pulse Ox O2 Delivery O2 Flow Rate FiO2 06/27/17 08:43 97.7 90 16 138/77 (97) 95 06/27/17 00:00 98.0 80 20 137/64 (88) 97 06/26/17 21:50 97 Nasal Cannula 06/26/17 20:00 98.1 88 20 154/66 (95) 94 06/26/17 18:00 97.3 103 14 155/72 (99) 95 06/26/17 15:46 94 Nasal Cannula 2.00 06/26/17 12:00 97.9 83 14 142/71 (94) 96 I/O 06/26/17 06/26/17 06/26/17 06/27/17 06/27/17 06/27/17 07:00 15:00 23:00 07:00 15:00 23:00 Intake Total 660 ml 60 ml 118 ml 60 ml Output Total 650 ml 1350 ml Balance 10 ml 60 ml -1232 ml 60 ml Intake Oral 660 ml 60 ml 118 ml 60 ml Output Urine Total 650 ml 1350 ml # Voids 2 1 # Bowel Movements 2 4 1 Result Diagram: 06/25/17 0655 06/25/17 0655 Objective Remarks GENERAL: Well-developed, well-nourished, in no acute distress. alert and orientated HEENT: Head is normocephalic without any lesions or masses noted. Facial features are symmetric. Eyes: Extraocular muscles are intact. Conjunctivae were clear. NECK: Supple without any masses. Trachea midline no deviation. No JVD, CARDIAC: Regular rhythm, regular rate. S1/S2 are heard. No murmurs gallops or rubs. LUNGS: Clear to auscultation bilaterally. No wheeze, rhonchi or rales. No use of accessory muscles on inspiration or expiration. ABDOMEN: Soft, nontender. Nondistended. Bowel sounds heard in all 4 quadrants. No organomegaly or masses. Negative rebound, negative guarding EXTREMITIES: No edema, pulses are equal bilaterally. No cyanosis or clubbing NEUROLOGY: Mood and affect appear appropriate. Cranial nerves II through XII grossly intact. Moving all extremities, speech is clear Procedures . Urinary Catheter: Yes Assessment to: Remove Jain insert reason: Obstruction/Retention Vascular Central Line Catheter: No A/P Assessment and Plan Clostridium difficile infection with presenting symptoms of sepsis, improved Patient presented with significant leukocytosis with bandemia, sinus tachycardia, with suspected enteritis/colitis C. difficile culture was performed which was positive Patient was started on vancomycin 125 mg by mouth every 6 hours Leukocytosis has returned to normal Urinary retention Could have been secondary to dehydration, infection Will discontinue Jain and monitor for output, may need replacement of Jain with discharged to rehabilitation facility with urological consultation in outpatient setting Chronic hypoxic respiratory failure Continue supplemental oxygen Continue duo nebs Ruthie's granulomatosis Continue home medications Physical deconditioning Physical therapy and occupational therapy following the patient DVT prevention Subcutaneous Lovenox Discharge Planning Discharge to [facility] facility once arrangements made by case management Lei Mallory Jun 27, 2017 11:25
[2017-06-27 12:52] VITALS: BP 117/69; PULSE 82; RESP 16; TEMP 97.7; O2SAT 98
[2017-06-27] MEDS: ENOXAPARIN SODIUM 30 MG/0.3 ML SYRINGE SQ SCH (15:00)
== END 2017-06-27 16:51 | DRG 872 ==
LOC: PHED 12:53 → PHEDA 18:12 → PH3A 20:30
PROVIDERS: ADMIT Hospitalist; ATTEND Hospitalist
PROC: 0T9B70Z Drainage of Bladder with Drainage Device, Via Natural or Artificial Opening (ICD-10-PCS; principal; 2017-06-23)
DX: A41.4 Sepsis due to anaerobes (principal); J90 Pleural effusion, not elsewhere classified; J96.11 Chronic respiratory failure with hypoxia; M31.30 Wegener's granulomatosis without renal involvement; A04.72 Enterocolitis due to Clostridium difficile, not specified as recurrent; N39.0 Urinary tract infection, site not specified; E87.6 Hypokalemia; R33.9 Retention of urine, unspecified; F32.9 Major depressive disorder, single episode, unspecified; Z72.0 Tobacco use
CPT/HCPCS: 71045; 71046; 74018; 74177; 80048; 80053; 81001; 83605; 83690; 83735; 85007; 85025; 85027; 87040; 87086; 87106; 87493; 96365; 96367; J0696; J1650; J1940; J2543; J3370; J7030; J7040; J7050; Q9967